=== PATIENT | female | born 1955 | race African-American/Black ===

== ENCOUNTER 2017-03-08 16:35 | Inpatient (IN) | payer OTHER ==
--- NOTE | 2017-03-08 16:55 | PDOC ---
History of Present Illness - General Chief Complaint: Injury Stated Complaint: FALL Time Seen by Provider: 03/08/17 16:55 History Source: Patient Exam Limitations: Other (Patient is on-verbal) - History of Present Illness Initial Comments: 61 year old female with HIV (immunocompromised, Recent CD4 420 with VL <20), HTN, CVA (remote, on ASA), Hep C (s/p Harvoni), asthma/COPD (no history of intubations), and active cigarette smoking presenting after being found down by her cousin. She was on the floor for approximately two days without known inciting event. She states that she was walking out of the bathroom and simply fell but unsure if she tripped. She did not hit her head or lose consciousness. She doesn't have history of falls. Family was not at bedside to corroborate her story. She takes all of her medications as prescribed. Denies fevers, chills, nausea, vomiting, diarrhea, constipation, chest pain, or other symptoms. 03/08/17 19:31 Past History - Past Medical History Allergies/Adverse Reactions: Allergies Allergy/AdvReac Type Severity Reaction Status Date / Time Penicillins AdvReac Severe Verified 10/11/15 10:19 Home Medications: Ambulatory Orders Abacavir Sulfate [Abacavir] 300 mg PO BID #60 tablet 12/23/16 Aspirin [Ecotrin] 81 mg PO DAILY #30 tablet. 12/23/16 Darunavir/Cobicistat [Prezcobix 800 mg-150 mg Tablet] 1 each PO DAILY #30 tablet 12/23/16 Gabapentin 400 mg PO DAILY #30 capsule 12/23/16 Lamivudine 300 mg PO DAILY #30 tablet 12/23/16 Metoprolol Tartrate [Lopressor] 25 mg PO DAILY #30 tablet 12/23/16 Multivitamin [Poly-Vitamin] 1 each PO DAILY #30 tab.chew 12/23/16 Amlodipine Besylate 10 mg PO DAILY #30 tablet 01/06/17 Lactose-Reduced Food [Ensure Original] 237 ml PO TID #90 liquid 02/12/17 Anemia: Yes Asthma: Yes Cancer: No Cardiac Disorders: No CVA: No COPD: No CHF: No Dementia: No Diabetes: No GI Disorders: No Disorders: No HTN: Yes Hypercholesterolemia: Yes HIV: Yes Liver Disease: No Seizures: No Thyroid Disease: No - Surgical History Abdominal Surgery: No Appendectomy: No Cardiac Surgery: No Cholecystectomy: No Lung Surgery: No Neurologic Surgery: No Orthopedic Surgery: No - Immunization History Td Vaccination: Yes Immunization Up to Date: Yes - Psycho/Social/Smoking Cessation Hx Anxiety: No Suicidal Ideation: No Smoking History: Former smoker Have you smoked in the past 12 months: No Number of Cigarettes Smoked Daily: 5 If you are a former smoker, when did you quit?: Several months ago. Cigars Per Day: 0 Information on smoking cessation initiated: No 'Breaking Loose' booklet given: 09/07/14 Hx Alcohol Use: Yes Drug/Substance Use Hx: Yes Substance Use Type: Heroin Hx Substance Use Treatment: Yes Review of Systems - Review of Systems Constitutional: No: Chills, Diaphoresis, Fever HEENTM: No: Blurred Vision, Recent change in vision Respiratory: No: Cough, Shortness of Breath Cardiac (ROS): No: Chest Pain ABD/GI: No: Constipated, Diarrhea, Nausea : No: Dysuria, Frequency, Hematuria Musculoskeletal: Yes: Joint Pain Integumentary: No: Change in Color, Lesions Neurological: No: Headache, Numbness *Physical Exam - Vital Signs Last Vital Signs Temp Pulse Resp BP Pulse Ox 97.6 F 92 H 18 142/114 97 03/08/17 16:51 03/08/17 16:51 03/08/17 16:51 03/08/17 16:51 03/08/17 16:51 - Physical Exam General Appearance: Yes: Appropriately Dressed, Thin. No: Apparent Distress HEENT: positive: EOMI, LINDA, Thrush, Other (Mucous membranes dry with thrush on tongue.). negative: Normal Voice (Had difficulty understanding the patient becuasse she was missing her top dentures. ), Photophobia Neck: positive: Trachea midline, Normal Thyroid, Supple. negative: Tender, Rigid Respiratory/Chest: positive: Lungs Clear, Normal Breath Sounds. negative: Chest Tender, Respiratory Distress, Accessory Muscle Use Cardiovascular: positive: Regular Rhythm, Regular Rate, S1, S2. negative: Murmur Gastrointestinal/Abdominal: positive: Normal Bowel Sounds, Flat, Soft. negative : Tender Musculoskeletal: negative: Normal Inspection (Externally rotated and shortened right hip that is painful to palpation over the greater trochanter and is non- mobile secondaryt to pain. Neurvascularly intact distal to the site. No swelling , erythema, or bruising. Upper extremeities have slightly decreased ROM but symmetric. ) Extremity: positive: Tender. negative: Normal Inspection, Normal Range of Motion Integumentary: positive: Normal Color, Dry, Warm Neurologic: positive: Fully Oriented (Originally had questionable orientation but imrpoved after fluids and placing her teeth inher mouth.), Alert ED Treatment Course - LABORATORY CBC & Chemistry Diagram: 03/08/17 18:45 03/08/17 20:04 Medical Decision Making - Medical Decision Making 61 year immuno-compromised female on HAART therapy presenting with left hip pain after being found down for two days. Hip film positive for fracture ( transcervical, shortened, Grade 4 garden fracture, possible fracture of greater trochanter as well). Trop negative, elevated BUN, CR, and CK (1800). 03/08/17 20:51 03/08/17 21:[address] Chou's service for hip fracture repair and IV hydration/ CK trending. Dr. Bowman was consulted on the case at 21:10 PM and agreed to operate on the patient within a day or two. *DC/Admit/Observation/Transfer Diagnosis at time of Disposition: Closed left hip fracture, Rhabdomyolysis - Discharge Dispostion Condition at time of disposition: Improved Admit: Yes - Attestations Physician Attestion: Attested by Dr. Quan. 03/08/17 21:35 03/08/17 22:18
[2017-03-08] MEDS ORDERED: SODIUM CHLORIDE 1,000 ML IV STA (17:36)
[2017-03-08 18:50] LABS: BASOPHIL 0.6 % (0-2.0); EOSINOPHIL 1.2 % (0-4.5); MCHC 34.3 g/dl (32.0-36.0); MEAN CELL VOLUME 99.1 fl (80-96); MEAN PLT VOLUME 9.7 fl (7.5-11.1); NEUTROPHILS 68.1 % (42.8-82.8); PLATELET COUNT 170 K/MM3 (134-434)
[2017-03-08 19:07] LABS: INR 1.06 (0.82-1.09); PROTHROMBIN TIME (PATIENT) 11.7 SEC (9.98-11.88)
[2017-03-08 20:41] LABS: ALBUMIN 3.5 g/dl (3.4-5.0); ANION GAP 9 (8-16); BILIRUBIN,TOTAL 0.4 mg/dL (0.2-1.0); CALCIUM 8.7 mg/dL (8.5-10.1); CO2 27 mmol/L (21-32); CREATININE 1.4 mg/dL (0.55-1.02); GLUCOSE,RANDOM 81 mg/dL (74-106); SGOT/AST 50 U/L (15-37); SGPT/ALT 31 U/L (12-78); TOT PROT 7.7 g/dl (6.4-8.2)
[2017-03-08 20:42] LABS: ALK PHOS 76 U/L (45-117)
[2017-03-08 20:54] LABS: TROPONIN I < 0.02 ng/ml (0.00-0.05)
[2017-03-08 20:55] LABS: CPK 1884 IU/L (26-192)
--- NOTE | 2017-03-08 20:58 | PDOC ---
Attending Attestation - Resident Resident Name: KadeemJimrubaaly - ED Attending Attestation I have performed the following: I have examined & evaluated the patient, The case was reviewed & discussed with the resident, I agree w/resident's findings & plan, Exceptions are as noted - HPI HPI: 03/08/17 20:50 61 yo female JENA from home after a cousin found her on the floor. She states she fell 2 days ago.When questioned she doedsnot know why she fell.The family member didn't accompany this pt to the ER. -she has c/o left hip pain ,her left leg is fore shortened and externally rotated -in reviewing the old charts her PMH is significant foir HTN,HIV, hep c, anemia, asthma -she is followed at the [facility] 03/08/17 20:58 - Physicial Exam PE: 03/08/17 20:59 thin, 61 03/08/17 21:33 61-year-old female looking much older than stated age. Presents with dry mucous membranes Head- no evidence of scalp laceration or hematoma Eyes -pupils equal, reactive to light and accommodation Neck -there is no cervical vertebral tenderness Clear to auscultation bilaterally cvs [id number] -Soft, nontender Extremities tenderness in the area of the left femur and hip, left leg is externally rotated and foreshortened Neuro-upon initial presentation, it was felt the patient couldn't speak. However, when she got her dentures and she definitely can participate in her exam - Medical Decision Making 03/09/17 01:21 61 yo female s/p fall who had a left intertrochanteric hip fracture,admitted med /surg
[2017-03-08] MEDS ORDERED: morphine CARPU-JECT 2 MG/1 ML DISP.SYRIN IVPUSH PRN (23:29)
[2017-03-08 23:40] VITALS: BMI 16.2
[2017-03-08] MEDS ORDERED: SODIUM CHLORIDE 0.45% 1,000 ML IV SCH (23:45)
[2017-03-09] MEDS: HEPARIN NA (PORCINE) 5,000 UNITS/ML 1ML VIAL SQ SCH ×4 (00:11→21:34)
--- NOTE | 2017-03-09 00:13 | HP ---
CHIEF COMPLAINT: fall, hip pain PCP: [facility] HISTORY OF PRESENT ILLNESS: 61yo F with PMH of HIV, Hep C, HTN presents s/p fall and Left hip pain. Pt reports she was walking out of the bathroom and fell 2 days ago, does not recall tripping or slipping. Pt reports she just stayed on the floor for 2 days until found by her cousin. Denies LOC, dizziness, change in vision, chest pain, palpitations, SOB, neck/back pain. Pt reports she did not hit her head. Pt does c/o Left hip pain, with onset after the fall. Denies a hx of falls. ER course was notable for: (1) Creatine kinase 1870 (2) NS 1 L bolus (3) CXR, hip/pelvis XRay, Head CT without contrast all pending PAST MEDICAL HISTORY: HIV Hep C asthma anemia HTN hypercholesterolemia PAST SURGICAL HISTORY: none Social History: Smoking: current, 5 cigarettes/day x 45 yrs Alcohol: none currently, hx of etoh use Drugs: none currently, hx of heroin Allergies Penicillins Adverse Reaction (Severe, Verified 10/11/15 10:19) "the skakes" HOME MEDICATIONS: Home Medications Medication Instructions Recorded Abacavir Sulfate [Abacavir] 300 mg PO BID #60 tablet 12/23/16 Aspirin [Ecotrin] 81 mg PO DAILY #30 tablet. 12/23/16 Darunavir/Cobicistat [Prezcobix 1 each PO DAILY #30 tablet 12/23/16 800 mg-150 mg Tablet] Gabapentin 400 mg PO DAILY #30 capsule 12/23/16 Lamivudine 300 mg PO DAILY #30 tablet 12/23/16 Metoprolol Tartrate [Lopressor] 25 mg PO DAILY #30 tablet 12/23/16 Multivitamin [Poly-Vitamin] 1 each PO DAILY #30 tab.chew 12/23/16 Amlodipine Besylate 10 mg PO DAILY #30 tablet 01/06/17 Lactose-Reduced Food [Ensure 237 ml PO TID #90 liquid 02/12/17 Original] REVIEW OF SYSTEMS CONSTITUTIONAL: Absent: fever, chills, diaphoresis, loss of appetite HEENT: Absent: throat pain, ear pain, eye pain, visual changes CARDIOVASCULAR: Absent: chest pain, syncope, palpitations, irregular heart rate RESPIRATORY: Absent: cough, shortness of breath, orthopnea, wheezing, stridor GASTROINTESTINAL: Absent: abdominal pain, abdominal distension, nausea, vomiting, diarrhea, constipation GENITOURINARY: Absent: dysuria, frequency, hesitancy MUSCULOSKELETAL: Present: Left hip pain Absent: myalgia, joint swelling, back pain, neck pain SKIN: Absent: rash, itching, pallor NEUROLOGIC: Absent: headache, focal weakness or paresthesias, dizziness PHYSICAL EXAMINATION Last Vital Signs Temp Pulse Resp BP Pulse Ox 97.9 F 92 H 20 128/65 95 03/08/17 23:34 03/08/17 23:34 03/08/17 23:47 03/08/17 23:34 03/08/17 23:47 GENERAL: Awake, alert, and fully oriented, cachectic woman in no acute distress. HEAD: Normal with no signs of trauma. EYES: Pupils equal, round and reactive to light, extraocular movements intact, sclera anicteric, conjunctiva clear. No lid lag. EARS, NOSE, THROAT: Thrush on tongue. Dry mucous membranes. NECK: Supple, trachea midline. No JVD, or masses. LUNGS: Breath sounds equal, clear to auscultation bilaterally. No wheezes, and no crackles. No accessory muscle use. HEART: Regular rate and rhythm, normal S1 and S2 without murmur, rub or gallop. ABDOMEN: Soft, nontender, not distended, normoactive bowel sounds, no guarding, no rebound, no masses. MUSCULOSKELETAL: Left LE externally rotated and shortened length, tender to palpation. LOWER EXTREMITIES: Both LE warm, well-perfused. No calf tenderness. No peripheral edema. NEUROLOGICAL: Fully oriented. Sensation intact to charlie LE. PSYCHIATRIC: Cooperative. Good eye contact. Appropriate mood and affect. SKIN: Warm, dry, normal turgor, no rashes or lesions noted. Laboratory Last Values WBC 5.0 K/mm3 (4.0-10.0) 03/08/17 18:45 RBC 4.99 M/mm3 (3.60-5.2) 03/08/17 18:45 Hgb 17.0 GM/dL (10.7-15.3) H D 03/08/17 18:45 Hct 49.5 % (32.4-45.2) H D 03/08/17 18:45 MCV 99.1 fl (80-96) H 03/08/17 18:45 MCH 34.0 pg (25.7-33.7) H 03/08/17 18:45 MCHC 34.3 g/dl (32.0-36.0) 03/08/17 18:45 RDW 15.0 % (11.6-15.6) 03/08/17 18:45 Plt Count 170 K/MM3 (134-434) D 03/08/17 18:45 MPV 9.7 fl (7.5-11.1) 03/08/17 18:45 Neutrophils % 68.1 % (42.8-82.8) D 03/08/17 18:45 Lymphocytes % 20.9 % (8-40) D 03/08/17 18:45 Monocytes % 9.2 % (3.8-10.2) 03/08/17 18:45 Eosinophils % 1.2 % (0-4.5) 03/08/17 18:45 Basophils % 0.6 % (0-2.0) 03/08/17 18:45 INR 1.06 (0.82-1.09) 03/08/17 18:45 Sodium 139 mmol/L (136-145) 03/08/17 20:04 Potassium 3.9 mmol/L (3.5-5.1) 03/08/17 20:04 Chloride 103 mmol/L (98-107) 03/08/17 20:04 Carbon Dioxide 27 mmol/L (21-32) 03/08/17 20:04 Anion Gap 9 (8-16) 03/08/17 20:04 BUN 53 mg/dL (7-18) H D 03/08/17 20:04 Creatinine 1.4 mg/dL (0.55-1.02) H 03/08/17 20:04 Creat Clearance w eGFR 38.10 (>60) 03/08/17 20:04 Random Glucose 81 mg/dL (74-106) 03/08/17 20:04 Calcium 8.7 mg/dL (8.5-10.1) 03/08/17 20:04 Total Bilirubin 0.4 mg/dL (0.2-1.0) D 03/08/17 20:04 AST 50 U/L (15-37) H D 03/08/17 20:04 ALT 31 U/L (12-78) D 03/08/17 20:04 Alkaline Phosphatase 76 U/L (45-117) D 03/08/17 20:04 Creatine Kinase 1870 IU/L (26-192) H 03/08/17 20:06 Creatine Kinase Index 0.8 % (0.0-5.0) 03/08/17 20:06 CK-MB (CK-2) 16.477 ng/mL (0.5-3.6) H 03/08/17 20:06 Troponin I < 0.02 ng/ml (0.00-0.05) 03/08/17 20:06 Total Protein 7.7 g/dl (6.4-8.2) 03/08/17 20:04 Albumin 3.5 g/dl (3.4-5.0) 03/08/17 20:04 Blood Type O POSITIVE 03/08/17 18:45 Antibody Screen Negative 03/08/17 18:45 IMAGIN03/08/17 CXR pending, appears negative normal 03/08/17 Hip/Pelvis XRay pending, fx of Left femur evident 03/08/[address] without contrast - no acute findings. ASSESSMENT/PLAN: 61yo F with PMH of HIV, Hep C, HTN presents s/p fall and Left hip pain admitted to Med-Surg for Left hip fx. 1) Left hip fx - Ortho Consult - pain control with morphine 4mg q4hr prn 2) rhabdomyolysis - 1/2 NS @ 125 ml/hr for hydration - f/u Creatine kinase 3) HIV - cont. home HAART meds of Abacavir 300mg PO BID and Prezcobix 800mg/150mg PO daily - hold Lamivudin 2/2 nephrotoxicity especially in acute setting of rhabdomyolysis 4) HTN - pain management - cont. home meds of Lopressor 25mg PO daily and Amlodipine 10mg PO daily 5) FEN - Fluids: 1/2 NS @ 125 ml/hr - Electrolytes: wnl, cont. to monitor - Nutrition: npo after midnight, will hopefully be scheduled for surgery tomorrow 6) Prophylaxis - Heparin 5000U q8hr for DVT prophylaxis Visit type - Emergency Visit Emergency Visit: Yes ED Registration Date: 03/08/17 Care time: The patient presented to the Emergency Department on the above date and was hospitalized for further evaluation of their emergent condition. - New Patient This patient is new to me today: Yes Date on this admission: 03/09/17 - Critical Care Critical Care patient: No
--- NOTE | 2017-03-09 00:58 | PN ---
Teaching Attending Note Name of Resident: Cheryl Deluna ATTENDING PHYSICIAN STATEMENT I saw and evaluated the patient. I reviewed the resident's note and discussed the case with the resident. I agree with the resident's findings and plan as documented. SUBJECTIVE: 61 year old female that presents s/p fall at home. Was unable to get up and call help for two days , was found on the floor by her cousin. Has poor recollection of events . C/o left hip pain 10/10 , constant. PAST MEDICAL HISTORY: HIV Hep C asthma anemia HTN hypercholesterolemia PAST SURGICAL HISTORY: none Social History: Smoking: current, 5 cigarettes/day x 45 yrs Alcohol: none currently, hx of etoh use Drugs: none currently, hx of heroin OBJECTIVE: Vital Signs Temperature 97.9 F 03/08/17 23:34 Pulse Rate 92 H 03/08/17 23:34 Respiratory Rate 20 03/08/17 23:47 Blood Pressure 128/65 03/08/17 23:34 O2 Sat by Pulse Oximetry (%) 95 03/08/17 23:47 GENERAL: Awake, alert, and fully oriented, cachectic woman in no acute distress. HEAD: Normal with no signs of trauma.Temporal wasting EARS, NOSE, THROAT: Oral thrush. Dry mucous membranes. NECK: Supple, trachea midline. No JVD, or masses. LUNGS: Breath sounds equal, clear to auscultation bilaterally. No wheezes, and no crackles. No accessory muscle use. HEART: Regular rate and rhythm, normal S1 and S2 without murmur, rub or gallop. ABDOMEN: Soft, nontender, not distended, normoactive bowel sounds, no guarding, no rebound, no masses. MUSCULOSKELETAL: Left LE externally rotated and shortened length, tender to palpation. LOWER EXTREMITIES: Both LE warm, well-perfused. No calf tenderness. No peripheral edema. CBC, BMP 03/08/17 18:45 03/08/17 20:04 ASSESSMENT AND PLAN: 1. Left Hip Fracture - post traumatic -ortho evaluation for possible ORIF -pain control 2. Rhabdomyolisis- post traumatic - ivf @ 125/hr - follow cpk and renal function 3. HIV - reports that last CD4 is above 400 and VL was undetectable. Compliant with meds - get records - c/w HAART - CD4 count 4. ARF - pre renallikely - IVF 5. Oral thrush - nystatin S&S 6. FEN nutrition consult
[2017-03-09] MEDS ORDERED: morphine CARPU-JECT 4 MG/1 ML DISP.SYRIN IVPUSH PRN (01:22)
[2017-03-09] MEDS: NYSTATIN 500,000 UNITS/5 ML SUSPENSION PO SCH ×3 (06:25→18:29)
[2017-03-09] MEDS: morphine CARPU-JECT 2 MG/1 ML DISP.SYRIN IVPUSH PRN ×3 (06:27→21:44)
[2017-03-09 08:12] LABS: MCH 33.6 pg (25.7-33.7); MCHC 33.5 g/dl (32.0-36.0); MEAN CELL VOLUME 100.2 fl (80-96); PLATELET COUNT 129 K/MM3 (134-434); RDW 14.9 % (11.6-15.6); WHITE BLOOD COUNT 4.4 K/mm3 (4.0-10.0)
[2017-03-09 08:46] LABS: ALBUMIN 3.5 g/dl (3.4-5.0); ALK PHOS 77 U/L (45-117); ANION GAP 11 (8-16); BILIRUBIN,TOTAL 0.6 mg/dL (0.2-1.0); CALCIUM 8.9 mg/dL (8.5-10.1); CO2 25 mmol/L (21-32); CREATININE 0.9 mg/dL (0.55-1.02); GLUCOSE,RANDOM 89 mg/dL (74-106); SGOT/AST 50 U/L (15-37); SGPT/ALT 31 U/L (12-78); TOT PROT 7.8 g/dl (6.4-8.2)
[2017-03-09 08:58] LABS: CPK 2184 IU/L (26-192); TROPONIN I < 0.02 ng/ml (0.00-0.05)
[2017-03-09] MEDS: METOPROLOL TARTRATE 25 MG TABLET (FP) PO SCH (09:05)
[2017-03-09] MEDS: amLODIPine BESYLATE 10 MG TABLET (FP) PO SCH (09:05)
--- NOTE | 2017-03-09 09:08 | CON.ORTH ---
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 Home Medications - Allergies Allergies/Adverse Reactions: Allergies Allergy/AdvReac Type Severity Reaction Status Date / Time Penicillins AdvReac Severe Verified 10/11/15 10:19 - Home Medications Home Medications: Ambulatory Orders Abacavir Sulfate [Abacavir] 300 mg PO BID #60 tablet 12/23/16 Aspirin [Ecotrin] 81 mg PO DAILY #30 tablet. 12/23/16 Darunavir/Cobicistat [Prezcobix 800 mg-150 mg Tablet] 1 each PO DAILY #30 tablet 12/23/16 Gabapentin 400 mg PO DAILY #30 capsule 12/23/16 Lamivudine 300 mg PO DAILY #30 tablet 12/23/16 Metoprolol Tartrate [Lopressor] 25 mg PO DAILY #30 tablet 12/23/16 Multivitamin [Poly-Vitamin] 1 each PO DAILY #30 tab.chew 12/23/16 Amlodipine Besylate 10 mg PO DAILY #30 tablet 01/06/17 Lactose-Reduced Food [Ensure Original] 237 ml PO TID #90 liquid 02/12/17 Family Disease History - Family Disease History Family Disease History: Heart Disease: Mother (CVA), CA: Brother (throat cancer) , Sister Physical Exam for Ortho Vital Signs: Vital Signs Temperature 98.0 F 03/09/17 08:58 Pulse Rate 79 03/09/17 08:58 Respiratory Rate 20 03/09/17 08:58 Blood Pressure 151/108 03/09/17 08:58 O2 Sat by Pulse Oximetry (%) 95 03/08/17 23:47 Labs: CBC, BMP 03/09/17 07:00 03/09/17 07:00 INR, PTT INR 1.06 (0.82-1.09) 03/08/17 18:45 - Lower Extremity Hip: Yes: Left, Decreased ROM, Leg Externally Rotated, Leg Shortened, Pain, Swelling, Other (nvi) Imaging - Results X-ray: Report Reviewed, Image Reviewed Assessment/Plan 61yo F with PMH of HIV, Hep C, HTN presents s/p fall and Left hip pain. Pt reports she was walking out of the bathroom and fell 2 days ago, does not recall tripping or slipping. Pt reports she just stayed on the floor for 2 days until found by her cousin. Denies LOC, dizziness, change in vision, chest pain, palpitations, SOB, neck/back pain. Pt reports she did not hit her head. Pt does c/o Left hip pain, with onset after the fall. Denies a hx of falls. a/p left displaced femoral neck fx Risks and benefits were d/w patient in detail Needs left hip hemiarthroplasty OR tentatively for Thursday pending clearance Surgical clearance NPO after midnight on Thursday pain control d/w Dr. Bowman
[2017-03-09] MEDS ORDERED: PATIENT'S OWN MEDICATION (NON-FORMULARY) (Darunavir/Cobicistat [Prezcobix 800 Mg-150 Mg Ta PO SCH (10:00)
[2017-03-09] MEDS ORDERED: PT OWN MED DRAWER 7, Y5N ONE (10:29)
[2017-03-09] MEDS: GABAPENTIN 400 MG CAPSULE (FP) PO SCH (10:34)
[2017-03-09] MEDS: ABACAVIR SULFATE 300 MG TABLET PO SCH ×2 (10:34→21:34)
--- NOTE | 2017-03-09 10:56 | PN ---
Progress Note (short form) - Note Progress Note: ID Consult dictated S/P L femoral neck fracture Possible rhabdo Dehydration AIDS Oral candidiasis PCN allergy Continue ART Nystatin swish and swallow Fluconazole po IVF hydration
--- NOTE | 2017-03-09 11:28 | CONS ---
DATE OF CONSULTATION: HISTORY: The patient is a 61-year-old female with a history of Acquired immunodeficiency syndrome evaluated for HIV management. She was admitted to the hospital on March 08, 2017 after being found on the floor by a family member. She was unable to give a reliable history. She apparently had been on the floor for some period of time. Upon evaluation, she was found to have a left femoral neck fracture. Her course was complicated by dehydration and possible rhabdomyolysis. At the present time, she is awake and alert. She complains of left lower extremity pain. She denies any head trauma or loss of consciousness. The patient has a long history of HIV infection. Has had a history of poor adherence in the past, however, most recent viral markers show an undetectable viral load and a T cell count of 47. She does have a AIDS diagnosis by virtue of a T cell count less than 200. PAST MEDICAL HISTORY: Positive for Acquired immunodeficiency syndrome, history of hypertension, CVA, hepatitis C, previously treated COPD, asthma. ALLERGIES: PENICILLIN. Nature of the allergy not known. SOCIAL HISTORY: Positive for tobacco use and history of IV heroin use. LABORATORY DATA: White count 4.4, hematocrit 44.5, platelet count 129, BUN 32, creatinine 0.9, total bilirubin 0.6, alkaline phosphatase 77, AST 50, CPK 2184. Chest x-ray: No acute infiltrate. X-ray of the left hip shows a left femoral neck fracture. PHYSICAL EXAMINATION: GENERAL: On exam, she is awake and alert. She is chronically ill-appearing, cachectic. VITAL SIGNS: Temperature 98, blood pressure 151/108, pulse 79 and regular, respirations 20 per minute. HEENT: Sclerae anicteric. Positive oral candidiasis. NECK: Supple. HEART: Sounds S1, S2. LUNGS: Crepitations bases left greater than right. ABDOMEN: Soft. No tenderness elicited. No mass, rebound, or rigidity. EXTREMITIES: Negative for edema. Left lower extremity is shortened. IMPRESSION: 1. Status post left femoral neck fracture. 2. Dehydration. 3. Possible rhabdomyolysis. 4. Acquired immunodeficiency syndrome. 5. Oral candidiasis. 6. PENICILLIN allergy. PLAN: Continue IV fluid hydration, nystatin swish and swallow, and p.o. fluconazole for thrush. Continue antiviral therapy. Thank you for the kind referral. KOFI GONZALEZ M.D. [id number]
[2017-03-09] MEDS: FLUCONAZOLE 100 MG TABLET (UD) PO SCH (11:42)
--- NOTE | 2017-03-09 12:58 | PN ---
Teaching Attending Note Name of Resident: Wei Galicia ATTENDING PHYSICIAN STATEMENT I saw and evaluated the patient. I reviewed the resident's note and discussed the case with the resident. I agree with the resident's findings and plan as documented. SUBJECTIVE:c/o pain in the L hip with only some relief with pain medication. states pain comes back too quickly. c/o dysphagia and loss of weight due to inability to swallow. claims medication compliance. states her VL was undetectable 3 months ago. no recent changes to her medications. states she did not have any symptoms before or after her fall and that she just lost her footing. denies CP, SOB, fever, chills, N/V/C/D OBJECTIVE: Last Vital Signs Temp Pulse Resp BP Pulse Ox 98.0 F 68 18 125/89 95 03/09/17 08:58 03/09/17 11:39 03/09/17 11:39 03/09/17 11:39 03/09/17 09:00 General NAD, cachectic HEENT +white oral plaques CV S1 S2 RRR no murmur/rub/gallop Lungs CTA B/L no wheezing/rales/rhonchi Extremities pulses intact. Pain on L hip ASSESSMENT AND PLAN: 61yo F wtih PMH HIV, HCV and HTN presented to the ER after mechanical fall and found to have L hip fracture 1. 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 Ortho eval and plan for ORIF. will need to medical optimize at this time. increase pain medication frequency to Q3H. bedrest. will need VINITA post surgery. 2. Rhabdo- due to immobility x2 days. CK trending up. can also be due to HARRT therapy. currently on hold. cont aggressive IVF. trend CK 3. TERESA- due to dehydration and TERESA. improved. cont IVF. avoid nephrtotoxic agents 4. Polycythemia-likely dehydration. improved 5. Oral candidasis- nystatin swish and swallow, fluconazole po 6. Dysphagia- likley due to oral candidasis. concern for weight loss. speech and swallow eval. nuclear physicist eval 7. HIV on HARRT- currently on hold due to rhabdo and TERESA. ID consult for evaluation. will need to see what recent labs were and if pt has been compliant 8. HTN- controlled. cont metoprolol 9. HCV-unknown if previsously treated 10. DVT ppx- hep sq
--- NOTE | 2017-03-09 14:47 | CONSULT ---
Admitting History and Physical - Primary Care Physician PCP: Charlene Cook - Admission History of Present Illness: 61yo F wtih PMH HIV, HCV and HTN presented to the ER after mechanical fall and found to have L hip fracture c/o dysphagia and loss of weight due to inability to swallow.Oral candidasis- nystatin swish and swallow, fluconazole po ordered. History Source: Medical Record Limitations to Obtaining History: Clinical Condition - Past Medical History Cardiovascular: Yes: HTN, Hyperlipdemia Hepatobiliary: Yes: Hepatitis B Infectious Disease: Yes: HIV - Smoking History Smoking history: Current every day smoker Have you smoked in the past 12 months: Yes Aproximately how many cigarettes per day: 5 If you are a former smoker, when did you quit?: Several months ago. - Alcohol/Substance Use Hx Alcohol Use: Yes History - Admission Reason For Visit: RHABDOMYOLYSIS - Diagnostics X-ray: Report Reviewed Modified Barium Swallow: Report Reviewed (02/2015 Limited mastication. (-) aspiration.) - General Mental Status: Flat Affect, Lethargic Attention: Distractible - Hearing Hearing: Normal Hearing Aide: No With Patient: No Speech Evaluation - Communication Primary Language: MALIAN Communication: Yes: Simple Responses (limited verbalizations) - Speech Characteristics Voice Loudness: Mildly Soft/Quiet Voice Phonatory-based Quality: Yes: Dysphonia Articulation: Yes: Imprecise - Swallow Evaluation/Bedside Assessment Current Nutritional Intake: Regular, Thin Liquids Oral Secretions: Yes: WFL Dentition: Yes: Edentulous Facial Symmetry at Rest: Symmetrical Lingual Movement: Symmetric, Reduced Protrusion Laryngeal Movement: Labored,delay initiation, Reduced Velocity Rate of Intake: Slow/Holding Oral Prep Time: Increased A-P Transit: Impaired Timing of Swallow: Delayed Coughing/Throat Clear: No Change in Voice: No Recommendations - Speech Evaluation, Impression/Plan Impression: Limited cooperation, rare verbalizations, accepted small amounts of puree from tip of spoon and small sips of ensure.Unable to masticate at this time. Delayed swallow, labored, generated 2-3 times per bolus. White patches in oral cavity. - Dysphagia Impressions/Plan Swallowing Skills: Impaired *Silent aspiration: cannot be R/O at bedside Dysphagia Treatment Plan: Chin Tuck/Down, Safe Rate, 1/2 tsp. at a time, Elevate HOB during feed, Other (give time to swallow 2-3 times to clear pharynx. ) Recommendations: Modified Barium Swallow (if cough, congestion, fever.), Other ( continue medical mgmt for thrush. May benefit from TF, once thrush clears, if poor PO intake continues.) - Recommendations Diet Consistency: Dysphagia Pureed Medication Administration: Crushed with applesauce Liquids: Thin Liquids Supplement: Ensure
--- NOTE | 2017-03-09 15:03 | PN ---
Physical Exam: SUBJECTIVE: Patient seen and examined at bed side. Patient complaine of pain in te left hip with very little relief with pain medicine. she c/o dysphasia and loss of weight due to inability to swallow. she denies any CP , SOB, D/C/N/V fever or chills.. OBJECTIVE: Vital Signs Period Temp Pulse Resp BP Sys/Johnson Pulse Ox Last 24 Hr 97.9 F-98.4 F 68-92 18-20 109-151/65-108 92-98 GENERAL: The patient is awake, alert, and fully oriented,.cachectic HEAD: Normal with no signs of trauma. EYES: PERRL, sclera anicteric, conjunctiva clear. No ptosis. ENT: , moist mucous membranes. NECK: Trachea midline, full range of motion, supple. LUNGS: Breath sounds equal, clear to auscultation bilaterally, no wheezes, no crackles, no accessory muscle use. HEART: Regular rate and rhythm, S1, S2 without murmur, rub or gallop. ABDOMEN: Soft, nontender, nondistended, normoactive bowel sounds, no guarding, no rebound, no hepatosplenomegaly, no masses. EXTREMITIES: 2+ pulses, warm, well-perfused, no edema. unable to move due to left hip pain. NEUROLOGICAL: . Normal speech, gait not observed. PSYCH: Normal mood, normal affect. SKIN: Warm, dry, normal turgor, no rashes or lesions noted Laboratory Results - last 24 hr 03/09/17 03/09/17 03/09/17 07:00 07:00 07:00 WBC 4.4 RBC 4.44 Hgb 14.9 D Hct 44.5 MCV 100.2 H MCH 33.6 MCHC 33.5 RDW 14.9 Plt Count 129 L D MPV 10.0 Sodium 137 Potassium 3.5 Chloride 101 Carbon Dioxide 25 Anion Gap 11 BUN 32 H D Creatinine 0.9 D Creat Clearance w eGFR > 60 Random Glucose 89 Calcium 8.9 Total Bilirubin 0.6 D AST 50 H ALT 31 Alkaline Phosphatase 77 Creatine Kinase 2184 H Creatine Kinase Index 0.6 CK-MB (CK-2) 14.135 H Troponin I < 0.02 Total Protein 7.8 Albumin 3.5 Active Medications Generic Name Dose Route Start Last Admin Trade Name Freq PRN Reason Stop Dose Admin Abacavir Sulfate 300 mg 03/09/17 10:00 03/09/17 10:34 Ziagen - PO 300 mg BID ELLIE Administration Amlodipine Besylate 10 mg 03/09/17 10:00 03/09/17 09:05 Norvasc - PO 10 mg DAILY ELLIE Administration Fluconazole 100 mg 03/09/17 11:00 03/09/17 11:42 Diflucan - PO 100 mg DAILY ELLIE Administration Gabapentin 400 mg 03/09/17 10:00 03/09/17 10:34 Neurontin - PO 400 mg DAILY ELLIE Administration Heparin Sodium (Porcine) 5,000 unit 03/08/17 23:45 03/09/17 06:25 Heparin - SQ 5,000 unit TID ELLIE Administration Sodium Chloride 1,000 mls @ 125 mls/hr 03/08/17 23:45 03/09/17 00:12 1/2 Normal Saline IV 125 mls/hr ASDIR ELLIE Administration Lamivudine 300 mg 03/09/17 11:00 Epivir - PO DAILY [facility] Metoprolol Tartrate 25 mg 03/09/17 10:00 03/09/17 09:05 Lopressor - PO 25 mg DAILY ELLIE Administration Morphine Sulfate 4 mg 03/09/17 06:12 03/09/17 11:41 Morphine Injection - IVPUSH 4 mg Q4H PRN Administration PAIN Nystatin 500,000 units 03/09/17 06:00 03/09/17 11:44 Nystatin Oral Suspension - PO 500,000 units Q6HPO ELLIE Administration CBC, BMP 03/09/17 07:00 03/09/17 07:00 Abnormal Lab Results 03/09/17 03/09/17 03/09/17 07:00 07:00 07:00 MCV 100.2 H Plt Count 129 L D BUN 32 H D AST 50 H Creatine Kinase 2184 H CK-MB (CK-2) 14.135 H 03/08/17 CXR , appears negative normal 03/08/17 Hip/Pelvis XRay , fx of Left femur evident 03/08/[address] without contrast - no acute findings. ASSESSMENT/PLAN: 61yo F with PMH of HIV, Hep C, HTN presents s/p fall and Left hip pain was admitted to Med-Surg for Left hip fx. # Left hip fx S/p mechanical fall - Ortho Consulted , will operate on her Wednesday - pain control with morphine 4mg q4hr prn - Percocet TID -Bed rest -Will benift from [facility] Post op # rhabdomyolysis -due to immobility x2 days vs HAAART therapy - NS @ 125 ml/hr for hydration -CK 2184 - f/u Creatine kinase - ID recommend conitinue HAART therapy # Dysphagia due to Oral candidasis - nystatin swish and swallow, -fluconazole po ordered - Speach and swallow eval: Limited cooperation, rare verbalizations, accepted small amounts of puree from tip of spoon and small sips of ensure.Unable to masticate at this [place] Delayed swallow, labored, generated 2-3 times per bolus. White patches in oral cavity. - Merchandising Representative consult #TERESA- due to dehydration and TERESA. improved -cont IVF. -avoid nephrtotoxic agents - BUN/Cr 32/0.9 # HIV - cont. home HAART meds of Abacavir 300mg PO BID and Prezcobix 800mg/150mg PO daily (per ID) - ID continue her home meds for #HTN - pain management - cont. home meds of Lopressor 25mg PO daily and Amlodipine 10mg PO daily # HEPC Unknown if previously treated # FEN - Fluids: NS @ 125 ml/hr - Electrolytes: wnl, cont. to monitor - Nutrition: -npo after midnight (Thursday) Suspected Surgery on Thursday # Prophylaxis - Heparin 5000U q8hr for DVT prophylaxis Visit type - Emergency Visit Emergency Visit: Yes ED Registration Date: 03/08/17 Care time: The patient presented to the Emergency Department on the above date and was hospitalized for further evaluation of their emergent condition. - New Patient This patient is new to me today: Yes Date on this admission: 03/10/17 - Critical Care Critical Care patient: No
[2017-03-09] MEDS: SODIUM CHLORIDE 1,000 ML IV SCH (15:58)
--- NOTE | 2017-03-09 19:01 | EKG ---
Test Reason : Blood Pressure : / mmHG Vent. Rate : 088 BPM Atrial Rate : 088 BPM P-R Int : 150 ms QRS Dur : 078 ms QT Int : 394 ms P-R-T Axes : 055 020 050 degrees QTc Int : 476 ms NORMAL SINUS RHYTHM NORMAL ECG WHEN COMPARED WITH ECG OF 08-MAR-2017 18:20, NO SIGNIFICANT CHANGE WAS FOUND Confirmed by MARTITA KIM MD ([id number]) on 03/09/2017 7:01:34 PM Referred By: Confirmed By:MARTITA KIM MD
[2017-03-10] MEDS: NYSTATIN 500,000 UNITS/5 ML SUSPENSION PO SCH ×5 (00:13→23:21)
[2017-03-10] MEDS ORDERED: HYDROmorphone HCL CARPU-JECT 1 MG/1 ML DISP.SYRIN IVPB ONE ×2 (00:50→04:30)
[2017-03-10] MEDS: HEPARIN NA (PORCINE) 5,000 UNITS/ML 1ML VIAL SQ SCH ×3 (05:45→21:20)
[2017-03-10] MEDS: SODIUM CHLORIDE 1,000 ML IV SCH ×4 (05:46→20:23)
[2017-03-10] MEDS ORDERED: oxyCODONE HCL 5 MG TABLET PO ONE (06:31)
[2017-03-10] MEDS ORDERED: PT OWN MED DRAWER 7, Y5N ONE ×2 (09:09→20:56)
[2017-03-10] MEDS: GABAPENTIN 400 MG CAPSULE (FP) PO SCH (09:17)
[2017-03-10] MEDS: METOPROLOL TARTRATE 25 MG TABLET (FP) PO SCH (09:17)
[2017-03-10] MEDS: FLUCONAZOLE 100 MG TABLET (UD) PO SCH (09:17)
[2017-03-10] MEDS: amLODIPine BESYLATE 10 MG TABLET (FP) PO SCH (09:17)
[2017-03-10] MEDS: ABACAVIR SULFATE 300 MG TABLET PO SCH ×2 (09:18→21:20)
[2017-03-10 09:44] LABS: MEAN CELL VOLUME 100.1 fl (80-96); RDW 14.3 % (11.6-15.6); WHITE BLOOD COUNT 3.8 K/mm3 (4.0-10.0)
[2017-03-10 10:51] LABS: PLATELET COUNT 125 K/MM3 (134-434); PLATELET ESTIMATE ADEQUATE (NORMAL)
[2017-03-10 10:55] LABS: ANION GAP 7 (8-16); CALCIUM 9.4 mg/dL (8.5-10.1); CO2 30 mmol/L (21-32); CPK 889 IU/L (26-192); CREATININE 0.7 mg/dL (0.55-1.02); GLUCOSE,RANDOM 78 mg/dL (74-106)
[2017-03-10] MEDS: HYDROmorphone HCL CARPU-JECT 1 MG/1 ML DISP.SYRIN IM PRN ×2 (12:17→20:18)
--- NOTE | 2017-03-10 12:21 | PN ---
Progress Note, Physician History of Present Illness: More awake and alert No c/o hip pain Still with significant thrush. Tolerating pureed diet - Current Medication List Current Medications: Active Medications Abacavir Sulfate (Ziagen -) 300 mg PO BID [facility] Last Admin: 03/10/17 09:18 Dose: 300 mg Amlodipine Besylate (Norvasc -) 10 mg PO DAILY [facility] Last Admin: 03/10/17 09:17 Dose: 10 mg Fluconazole (Diflucan -) 100 mg PO DAILY [facility] Last Admin: 03/10/17 09:17 Dose: 100 mg Gabapentin (Neurontin -) 400 mg PO DAILY [facility] Last Admin: 03/10/17 09:17 Dose: 400 mg Heparin Sodium (Porcine) (Heparin -) 5,000 unit SQ TID [facility] Last Admin: 03/10/17 05:45 Dose: 5,000 unit Hydromorphone HCl (Dilaudid Injection -) 0.5 mg IM Q4H PRN PRN Reason: PAIN Sodium Chloride (Normal Saline -) 1,000 mls @ 125 mls/hr IV ASDIR [facility] Stop: 03/10/17 23:14 Last Admin: 03/10/17 06:51 Dose: 125 mls/hr Lamivudine (Epivir -) 300 mg PO DAILY [facility] Last Admin: 03/10/17 09:18 Dose: 300 mg Metoprolol Tartrate (Lopressor -) 25 mg PO DAILY [facility] Last Admin: 03/10/17 09:17 Dose: 25 mg Morphine Sulfate (Morphine Injection -) 4 mg IVPUSH Q4H PRN PRN Reason: PAIN Last Admin: 03/09/17 21:44 Dose: 4 mg Nystatin (Nystatin Oral Suspension -) 500,000 units PO Q6HPO [facility] Last Admin: 03/10/17 05:46 Dose: 500,000 units - Objective Vital Signs: Vital Signs Temperature 97.8 F 03/10/17 09:00 Pulse Rate 80 03/10/17 09:00 Respiratory Rate 20 03/10/17 10:00 Blood Pressure 110/81 03/10/17 09:00 O2 Sat by Pulse Oximetry (%) 100 03/10/17 10:00 Constitutional: Yes: No Distress Eyes: Yes: Conjunctiva Clear HENT: Yes: Other (+ oral ute) Cardiovascular: Yes: Regular Rate and Rhythm, S1, S2 Respiratory: Yes: Rhonchi Gastrointestinal: Yes: Normal Bowel Sounds, Soft. No: Tenderness Edema: No Labs: CBC, BMP 03/10/17 09:00 03/10/17 09:00 INR, PTT INR 1.06 (0.82-1.09) 03/08/17 18:45 Assessment/Plan S/P L femoral neck fracture AIDS Oral candidiasis Continue nystatin/ po fluconazole Continue ART May take own prezcobix (non-formulary) Please re-consult prn
[2017-03-10 12:46] LABS: URINE APPEARANCE CLEAR; URINE BILIRUBIN NEGATIVE (NEGATIVE); URINE BLOOD NEGATIVE (NEGATIVE); URINE COLOR LTYELLOW; URINE GLUCOSE (UA) 1+ (NEGATIVE); URINE KETONE TRACE (NEGATIVE); URINE NITRITE NEGATIVE (NEGATIVE); URINE PROTEIN NEGATIVE (NEGATIVE); URINE UROBILINOGEN NEGATIVE mg/dL (0.2-1.0)
[2017-03-10 12:53] LABS: URINE LEUK ESTERASE 1+ (NEGATIVE)
[2017-03-10 12:57] LABS: URINE RBC <1 /hpf (0-3); URINE WBC 9 /hpf (3-5)
--- NOTE | 2017-03-10 13:51 | MSN ---
Progress Note (SOAP) - Subjective Chief Complaint: L Hip pain History of Present Illness: No events overnight. Pt says her pain has not been well controlled on oxycodone , states a 9/10 hip pain worsened by movement. She is tolerating pureed diet but still states eating is difficult, denies any pain on swallowing. Denies any loss of sensation, incontinence, hematuria/hematochezia/melena, or any other complaints. - Current Medications Current Medications: Active Medications Abacavir Sulfate (Ziagen -) 300 mg PO BID [facility] Last Admin: 03/10/17 09:18 Dose: 300 mg Amlodipine Besylate (Norvasc -) 10 mg PO DAILY [facility] Last Admin: 03/10/17 09:17 Dose: 10 mg Fluconazole (Diflucan -) 100 mg PO DAILY [facility] Last Admin: 03/10/17 09:17 Dose: 100 mg Gabapentin (Neurontin -) 400 mg PO DAILY [facility] Last Admin: 03/10/17 09:17 Dose: 400 mg Heparin Sodium (Porcine) (Heparin -) 5,000 unit SQ TID [facility] Last Admin: 03/10/17 05:45 Dose: 5,000 unit Hydromorphone HCl (Dilaudid Injection -) 0.5 mg IM Q4H PRN PRN Reason: PAIN Last Admin: 03/10/17 12:17 Dose: 0.5 mg Sodium Chloride (Normal Saline -) 1,000 mls @ 125 mls/hr IV ASDIR [facility] Stop: 03/10/17 23:14 Last Admin: 03/10/17 06:51 Dose: 125 mls/hr Lamivudine (Epivir -) 300 mg PO DAILY [facility] Last Admin: 03/10/17 09:18 Dose: 300 mg Metoprolol Tartrate (Lopressor -) 25 mg PO DAILY [facility] Last Admin: 03/10/17 09:17 Dose: 25 mg Morphine Sulfate (Morphine Injection -) 4 mg IVPUSH Q4H PRN PRN Reason: PAIN Last Admin: 03/09/17 21:44 Dose: 4 mg Nystatin (Nystatin Oral Suspension -) 500,000 units PO Q6HPO [facility] Last Admin: 03/10/17 12:17 Dose: 500,000 units - Objective Vital Signs: Vital Signs Temperature 97.8 F 03/10/17 09:00 Pulse Rate 80 03/10/17 09:00 Respiratory Rate 20 03/10/17 10:00 Blood Pressure 110/81 03/10/17 09:00 O2 Sat by Pulse Oximetry (%) 100 03/10/17 10:00 Constitutional: Yes: Cachectic, Moderate Distress Eyes: Yes: WNL, Conjunctiva Clear, EOM Intact HENT: Yes: Normocephalic, Thrush Neck: Yes: WNL, Supple Cardiovascular: Yes: WNL, Regular Rate and Rhythm Respiratory: Yes: WNL, Regular, CTA Bilaterally. No: Cough, Diminished, Rales, Rhonchi, Wheezes Gastrointestinal: Yes: WNL, Normal Bowel Sounds, Soft. No: Melena, Rectal Bleeding, Tenderness, Rebound, Vomiting ...Rectal Exam: Yes: Deferred Musculoskeletal: Yes: Other (L hip pain). No: Muscle Pain, Muscle Weakness Extremities: Yes: Other (L hip externally rotated and shortened, good pulses). No: Calf Tenderness, Delayed Capillary Refill Integumentary: Yes: WNL Neurological: Yes: WNL, Alert, Oriented ...Motor Strength: Yes: WNL Labs Lab Results: CBC, BMP 03/10/17 09:00 03/10/17 09:00 Laboratory Results - last 24 hr 03/10/17 03/10/17 03/10/17 09:00 09:00 11:15 WBC 3.8 L RBC 4.41 Hgb 14.5 Hct 44.1 MCV 100.1 H MCH 33.0 MCHC 33.0 RDW 14.3 Plt Count 125 L MPV 10.0 Platelet Estimate Adequate Platelet Comment No clumping noted Sodium 138 Potassium 4.0 Chloride 101 Carbon Dioxide 30 Anion Gap 7 L BUN 14 D Creatinine 0.7 D Random Glucose 78 Calcium 9.4 Creatine Kinase 889 H Creatine Kinase Index 0.5 CK-MB (CK-2) 4.738 H Urine Color Ltyellow Urine Appearance Clear Urine pH 7.0 D Urine Protein Negative Urine Glucose (UA) 1+ H Urine Ketones Trace H Urine Blood Negative Urine Nitrite Negative Urine Bilirubin Negative Urine Urobilinogen Negative Ur Leukocyte Esterase 1+ H Urine RBC <1 Urine WBC 9 Ur Epithelial Cells Rare Imaging - Results Chest X-ray: Image Reviewed X-ray: Image Reviewed Cat Scan: Report Reviewed Assessment/Plan #L hip fracture -S/p mechanical fall, however 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 -Ortho eval and plan for L hemiarthroplasty. -Pt will be NPO after midnight. -Changed pain medication to dilaudid. -Will require subacute rehab after surgery. #Rhabdomyolysis -Due to immobility x2 days. -CK trending down. Can also be due to HARRT therapy. -Cont IVF, no need to repeat CK. #TERESA -Due to dehydration and TERESA. improved. -Cont IVF. avoid nephrotoxic agents #Candidasis -Thrush seen on exam, eosphageal candidiasis suspected. nystatin swish and swallow, fluconazole po. #Dysphagia -Speech saw patient for swallowing, recommneded pureed diet. Likley due to candidiasis. concern for weight loss. speech and swallow eval. manager functional eval #HIV on HARRT -ID evaluated, recent CD4 count was 47. Per ID recommendatinos, continue HAART. #HTN -Controlled. cont metoprolol #HCV -s/p harvoni #DVT ppx -Hep sq
--- NOTE | 2017-03-10 14:05 | PN ---
Physical Exam: SUBJECTIVE: Patient seen and examined at bed side.No events overnight. Pt says her pain has not been well controlled on oxycodone, states a 9/10 hip pain worsened by movement. She is tolerating pureed diet but still states eating is difficult, denies any pain on swallowing. Denies any loss of sensation, hematuria/hematochezia/melena, or any other complaints. OBJECTIVE: Vital Signs Period Temp Pulse Resp BP Sys/Johnson Pulse Ox Last 24 Hr 97 F-98.6 F 65-80 18-20 109-132/73-87 100 GENERAL: The patient is awake, alert, and fully oriented, in no acute distress. HEAD: Normal with no signs of trauma. EYES: PERRL, sclera anicteric, conjunctiva clear. No ptosis. ENT: moist mucous membranes. NECK: Trachea midline, full range of motion, supple. LUNGS: Breath sounds equal, clear to auscultation bilaterally, no wheezes, no crackles, no accessory muscle use. HEART: Regular rate and rhythm, S1, S2 without murmur, rub or gallop. ABDOMEN: Soft, nontender, nondistended, normoactive bowel sounds, no guarding, no rebound, no hepatosplenomegaly, no masses. EXTREMITIES: 2+ pulses, warm, well-perfused, no edema. unable to examined due to left hip pain. NEUROLOGICAL: Normal speech, gait not observed. PSYCH: Normal mood, normal affect. SKIN: Warm, dry, normal turgor, no rashes or lesions noted Laboratory Results - last 24 hr 03/10/17 03/10/17 03/10/17 09:00 09:00 11:15 WBC 3.8 L RBC 4.41 Hgb 14.5 Hct 44.1 MCV 100.1 H MCH 33.0 MCHC 33.0 RDW 14.3 Plt Count 125 L MPV 10.0 Platelet Estimate Adequate Platelet Comment No clumping noted Sodium 138 Potassium 4.0 Chloride 101 Carbon Dioxide 30 Anion Gap 7 L BUN 14 D Creatinine 0.7 D Random Glucose 78 Calcium 9.4 Creatine Kinase 889 H Creatine Kinase Index 0.5 CK-MB (CK-2) 4.738 H Urine Color Ltyellow Urine Appearance Clear Urine pH 7.0 D Urine Protein Negative Urine Glucose (UA) 1+ H Urine Ketones Trace H Urine Blood Negative Urine Nitrite Negative Urine Bilirubin Negative Urine Urobilinogen Negative Ur Leukocyte Esterase 1+ H Urine RBC <1 Urine WBC 9 Ur Epithelial Cells Rare Active Medications Generic Name Dose Route Start Last Admin Trade Name Ministerio PRN Reason Stop Dose Admin Abacavir Sulfate 300 mg 03/09/17 10:00 03/10/17 09:18 Ziagen - PO 300 mg BID ELLIE Administration Amlodipine Besylate 10 mg 03/09/17 10:00 03/10/17 09:17 Norvasc - PO 10 mg DAILY ELLIE Administration Fluconazole 100 mg 03/09/17 11:00 03/10/17 09:17 Diflucan - PO 100 mg DAILY ELLIE Administration Gabapentin 400 mg 03/09/17 10:00 03/10/17 09:17 Neurontin - PO 400 mg DAILY ELLIE Administration Heparin Sodium (Porcine) 5,000 unit 03/08/17 23:45 03/10/17 13:51 Heparin - SQ 5,000 unit TID ELLIE Administration Hydromorphone HCl 0.5 mg 03/10/17 11:32 03/10/17 12:17 Dilaudid Injection - IM 0.5 mg Q4H PRN Administration PAIN Sodium Chloride 1,000 mls @ 125 mls/hr 03/10/17 06:33 03/10/17 06:51 Normal Saline - IV 03/10/17 23:14 125 mls/hr ASDIR ELLIE Administration Lamivudine 300 mg 03/09/17 11:00 03/10/17 09:18 Epivir - PO 300 mg DAILY ELLIE Administration Metoprolol Tartrate 25 mg 03/09/17 10:00 03/10/17 09:17 Lopressor - PO 25 mg DAILY ELLIE Administration Morphine Sulfate 4 mg 03/09/17 06:12 03/09/17 21:44 Morphine Injection - IVPUSH 4 mg Q4H PRN Administration PAIN Nystatin 500,000 units 03/09/17 06:00 03/10/17 12:17 Nystatin Oral Suspension - PO 500,000 units Q6HPO ELLIE Administration ASSESSMENT/PLAN: 61yo F with PMH of HIV, Hep C, HTN presents s/p fall and Left hip pain was admitted to Med-Surg for Left hip fx. # Left hip fx S/p mechanical fall - Ortho Consulted , will operate on her Thursday - pain switch to Dilauded IV 0.4 mg Q4H PRN - increased Percocet to X3 daily -Bed rest -Will benefit from [facility] Post op # rhabdomyolysis -due to immobility x2 days vs HAAART therapy - NS @ 125 ml/hr for hydration -CK 2184 - ID recommend conitinue HAART therapy # Dysphagia due to Oral candidasis - nystatin swish and swallow, -fluconazole po ordered - Speach and swallow eval: Limited cooperation, rare verbalizations, accepted small amounts of puree from tip of spoon and small sips of ensure.Unable to masticate at this time, Delayed swallow, labored, generated 2-3 times per bolus. White patches in oral cavity. - Direct Marketing Manager consult #TERESA -due to dehydration and TERESA. improved -cont IVF. -avoid nephrtotoxic agents - BUN/Cr 32/0.9 # HIV - cont. home HAART meds of Abacavir 300mg PO BID and Prezcobix 800mg/150mg PO daily (per ID) - ID continue her home meds for #HTN - pain management - cont. home meds of Lopressor 25mg PO daily and Amlodipine 10mg PO daily # HEPC : S/p Harvoni # FEN - Fluids: NS @ 125 ml/hr - Electrolytes: wnl, cont. to monitor - Nutrition:npo after midnight (Thursday) , Surgery on Thursday # Prophylaxis - Heparin 5000U q8hr for DVT prophylaxis Wei Galicia MD, PGY1 Visit type - Emergency Visit Emergency Visit: Yes ED Registration Date: 03/08/17 Care time: The patient presented to the Emergency Department on the above date and was hospitalized for further evaluation of their emergent condition. - New Patient This patient is new to me today: No - Critical Care Critical Care patient: No
--- NOTE | 2017-03-10 14:06 | PN ---
Teaching Attending Note Name of Resident: Wei Galicia ATTENDING PHYSICIAN STATEMENT I saw and evaluated the patient. I reviewed the resident's note and discussed the case with the resident. I agree with the resident's findings and plan as documented. SUBJECTIVE: Patient complains of left hip pain. OBJECTIVE: Vital Signs Period Temp Pulse Resp BP Sys/Johnson Pulse Ox Last 24 Hr 97 F-98.6 F 65-80 18-20 109-132/73-87 100 HEART: S1S2, RRR LUNGS: Clear ABDOMEN: Soft, non-tender, non-distended, normal BS EXTREMITIES: No edema ASSESSMENT AND PLAN: This is a 61 year old woman with a history of HIV, HCV, HTN, hyperlipidemia, anemia, asthma who presented to the ER with left hip pain after a fall. 1. Left femoral neck fracture - Plan for hemiarthroplasty tomorrow - Pain control 2. Rhabdomyolysis - Improving - Continue IV fluid 3. Acute kidney injury secondary to dehydration - Improved 4. Polycythemia secondary to dehydration - Improved 5. Dysphagia secondary to oral/esophageal candidiasis - Continue Diflucan, Nystatin swish and swallow 6. HIV - On Epivir, Ziagen 7. HTN - Continue Lopressor, Norvasc 8. Hepatitis C 9. Hyperlipidemia 10. Asthma - Stable
--- NOTE | 2017-03-10 14:07 | PN ---
Progress Note, TRAIN CALLER - Note Progress Note: Selected Entries 03/09/17 03/09/17 03/09/17 06:55 08:58 12:52 Breakfast 25% Lunch 25% Supper Temperature 98.4 F 98.0 F 03/09/17 03/09/17 03/09/17 16:00 18:14 22:00 Breakfast Lunch Supper Temperature 97.9 F 98 F 97.2 F L 03/09/17 03/10/17 03/10/17 22:51 02:00 06:20 Breakfast Lunch Supper 25% Temperature 97 F L 98.6 F 03/10/17 09:00 Breakfast Lunch Supper Temperature 97.8 F Laboratory Tests 03/10/17 09:00 WBC 3.8 L Treated for thrush. Assist with meals. Encourage supplements b/n meals.
--- NOTE | 2017-03-10 15:23 | PN ---
Progress Note (short form) - Note Progress Note: AVSS RESTING COMFORTABLY PATIENT ON SCHEDULE FOR HEMIARTHROPLASTY TOMORROW
[2017-03-11] MEDS: NYSTATIN 500,000 UNITS/5 ML SUSPENSION PO SCH ×3 (05:45→17:27)
[2017-03-11] MEDS: HEPARIN NA (PORCINE) 5,000 UNITS/ML 1ML VIAL SQ SCH ×3 (05:46→21:06)
[2017-03-11] MEDS: HYDROmorphone HCL CARPU-JECT 1 MG/1 ML DISP.SYRIN IM PRN ×4 (06:31→21:48)
[2017-03-11] MEDS: METOPROLOL TARTRATE 25 MG TABLET (FP) PO SCH (09:53)
[2017-03-11] MEDS: FLUCONAZOLE 100 MG TABLET (UD) PO SCH (09:53)
[2017-03-11] MEDS: amLODIPine BESYLATE 10 MG TABLET (FP) PO SCH (09:53)
[2017-03-11] MEDS: GABAPENTIN 400 MG CAPSULE (FP) PO SCH (09:53)
[2017-03-11] MEDS ORDERED: PT OWN MED DRAWER 7, Y5N ONE (09:55)
[2017-03-11] MEDS: ABACAVIR SULFATE 300 MG TABLET PO SCH ×2 (09:56→21:07)
[2017-03-11] MEDS ORDERED: ACETAMINOPHEN 325 MG TABLET (FP) PO ONE (10:00)
[2017-03-11] MEDS: SODIUM CHLORIDE 1,000 ML IV SCH (10:01)
--- NOTE | 2017-03-11 12:23 | PN ---
Teaching Attending Note Name of Resident: Wei Galicia ATTENDING PHYSICIAN STATEMENT I saw and evaluated the patient. I reviewed the resident's note and discussed the case with the resident. I agree with the resident's findings and plan as documented. SUBJECTIVE: Patient complaining of left hip pain. OBJECTIVE: Vital Signs Period Temp Pulse Resp BP Sys/Johnson Pulse Ox Last 24 Hr 97.8 F-98.8 F 67-92 18-20 110-133/78-87 100 HEART: S1S2, RRR LUNGS: Clear ABDOMEN: Soft, non-tender, non-distended, normal BS EXTREMITIES: No edema Current Medications Generic Name Dose Route Start Last Admin Trade Name Freq PRN Reason Stop Dose Admin Abacavir Sulfate 300 mg 03/09/17 10:00 03/11/17 09:56 Ziagen - PO 300 mg BID ELLIE Administration Amlodipine Besylate 10 mg 03/09/17 10:00 03/11/17 09:53 Norvasc - PO 10 mg DAILY ELLIE Administration Fluconazole 100 mg 03/09/17 11:00 03/11/17 09:53 Diflucan - PO 100 mg DAILY ELLIE Administration Gabapentin 400 mg 03/09/17 10:00 03/11/17 09:53 Neurontin - PO 400 mg DAILY ELLIE Administration Heparin Sodium (Porcine) 5,000 unit 03/08/17 23:45 03/11/17 13:26 Heparin - SQ Not Given TID ELLIE Hydromorphone HCl 0.5 mg 03/10/17 11:32 03/11/17 17:38 Dilaudid Injection - IM 0.5 mg Q4H PRN Administration PAIN Sodium Chloride 1,000 mls @ 75 mls/hr 03/11/17 08:45 03/11/17 10:01 Normal Saline - IV 03/12/17 22:04 75 mls/hr ASDIR ELLIE Administration Lamivudine 300 mg 03/09/17 11:00 03/11/17 09:57 Epivir - PO 300 mg DAILY ELLIE Administration Metoprolol Tartrate 25 mg 03/09/17 10:00 03/11/17 09:53 Lopressor - PO 25 mg DAILY ELLIE Administration Morphine Sulfate 4 mg 03/09/17 06:12 03/09/17 21:44 Morphine Injection - IVPUSH 4 mg Q4H PRN Administration PAIN Nystatin 500,000 units 03/09/17 06:00 03/11/17 17:27 Nystatin Oral Suspension - PO 500,000 units Q6HPO ELLIE Administration ASSESSMENT AND PLAN: This is a 61 year old woman with a history of HIV, HCV, HTN, hyperlipidemia, anemia, asthma who presented to the ER with left hip pain after a fall. 1. Left femoral neck fracture - Plan for hemiarthroplasty today - Pain control 2. Rhabdomyolysis - Improving - Continue IV fluid 3. Acute kidney injury secondary to dehydration - Improved 4. Polycythemia secondary to dehydration - Improved 5. Dysphagia secondary to oral/esophageal candidiasis - Continue Diflucan, Nystatin swish and swallow 6. HIV - On Epivir, Ziagen 7. HTN - Continue Lopressor, Norvasc 8. Hepatitis C 9. Hyperlipidemia 10. Asthma - Stable
--- NOTE | 2017-03-11 13:13 | PN ---
Physical Exam: SUBJECTIVE: Patient seen and examined at bed side.Npo after mid night . Pt says her pain has not been well controlled on oxycodone, states a 9/10 hip pain worsened by movement. She denies any loss of sensation, hematuria/hematochezia/ melena, or any other complaints. She ate one hour before surgery which is postponed till tomorrow3 PM. OBJECTIVE: Vital Signs Period Temp Pulse Resp BP Sys/Johnson Pulse Ox Last 24 Hr 97.8 F-98.8 F 67-92 18-20 110-133/78-95 100 GENERAL: The patient is awake, alert, and fully oriented, in no acute distress. HEAD: Normal with no signs of trauma. EYES: PERRL, extraocular movements intact, sclera anicteric, conjunctiva clear. No ptosis. ENT: Ears normal, nares patent, oropharynx clear without exudates, moist mucous membranes. NECK: Trachea midline, full range of motion, supple. LUNGS: Breath sounds equal, clear to auscultation bilaterally, no wheezes, no crackles, no accessory muscle use. HEART: Regular rate and rhythm, S1, S2 without murmur, rub or gallop. ABDOMEN: Soft, nontender, nondistended, normoactive bowel sounds, no guarding, no rebound, no hepatosplenomegaly, no masses. EXTREMITIES: 2+ pulses, warm, well-perfused, no edema. NEUROLOGICAL: Cranial nerves II through XII grossly intact. Normal speech, gait not observed. PSYCH: Normal mood, normal affect. SKIN: Warm, dry, normal turgor, no rashes or lesions noted Laboratory Results - last 24 hr 03/10/17 11:15 Urine Color Ltyellow Urine Appearance Clear Urine pH 7.0 D Ur Specific [place] 1.015 Urine Protein Negative Urine Glucose (UA) 1+ H Urine Ketones Trace H Urine Blood Negative Urine Nitrite Negative Urine Bilirubin Negative Urine Urobilinogen Negative Ur Leukocyte Esterase 1+ H Urine RBC <1 Urine WBC 9 Ur Epithelial Cells Rare Active Medications Generic Name Dose Route Start Last Admin Trade Name Freq PRN Reason Stop Dose Admin Abacavir Sulfate 300 mg 03/09/17 10:00 03/11/17 09:56 Ziagen - PO 300 mg BID ELLIE Administration Amlodipine Besylate 10 mg 03/09/17 10:00 03/11/17 09:53 Norvasc - PO 10 mg DAILY ELLIE Administration Fluconazole 100 mg 03/09/17 11:00 03/11/17 09:53 Diflucan - PO 100 mg DAILY ELLIE Administration Gabapentin 400 mg 03/09/17 10:00 03/11/17 09:53 Neurontin - PO 400 mg DAILY ELLIE Administration Heparin Sodium (Porcine) 5,000 unit 03/08/17 23:45 03/11/17 05:46 Heparin - SQ Not Given TID ELLIE Hydromorphone HCl 0.5 mg 03/10/17 11:32 03/11/17 10:31 Dilaudid Injection - IM 0.5 mg Q4H PRN Administration PAIN Sodium Chloride 1,000 mls @ 75 mls/hr 03/11/17 08:45 03/11/17 10:01 Normal Saline - IV 03/12/17 22:04 75 mls/hr ASDIR ELLIE Administration Lamivudine 300 mg 03/09/17 11:00 03/11/17 09:57 Epivir - PO 300 mg DAILY ELLIE Administration Metoprolol Tartrate 25 mg 03/09/17 10:00 03/11/17 09:53 Lopressor - PO 25 mg DAILY ELLIE Administration Morphine Sulfate 4 mg 03/09/17 06:12 03/09/17 21:44 Morphine Injection - IVPUSH 4 mg Q4H PRN Administration PAIN Nystatin 500,000 units 03/09/17 06:00 03/11/17 05:45 Nystatin Oral Suspension - PO Not Given Q6HPO [facility] ASSESSMENT/PLAN: 61yo F with PMH of HIV, Hep C, HTN presents s/p fall and Left hip pain was admitted to Med-Surg for Left hip fx. # Left hip fx S/p mechanical fall - Ortho Consulted , will operate on her Thursday - pain switch to Dilauded IV 0.4 mg Q4H PRN - increased Percocet to X3 daily -Bed rest -Will benefit from VINITA Post op # rhabdomyolysis -due to immobility x2 days vs HAAART therapy - NS @ 100 ml/hr for hydration -CK 2184 - conitinue HAART therapy # Dysphagia due to Oral candidasis - nystatin swish and swallow, -fluconazole po ordered - Speach and swallow eval: Limited cooperation, rare verbalizations, accepted small amounts of puree from tip of spoon and small sips of ensure.Unable to masticate at this time, Delayed swallow, labored, generated 2-3 times per bolus. White patches in oral cavity. - Bonderizer Operator consult #TERESA -due to dehydration and TERESA. improved -cont IVF. -avoid nephrtotoxic agents - BUN/Cr 32/0.9 # HIV - cont. home HAART meds of Abacavir 300mg PO BID and Prezcobix 800mg/150mg PO daily (per ID) - ID continue her home meds for #HTN - pain management - cont. home meds of Lopressor 25mg PO daily and Amlodipine 10mg PO daily # HEPC : Chronic # Hyperlipidimia # Asthma, Controlled. # FEN - Fluids: NS @ 100 ml/hr - Electrolytes: wnl, cont. to monitor - Nutrition:npo after midnight , Surgery due tomorrow Thursday # Prophylaxis - Heparin 5000U q8hr for DVT prophylaxis Wei Galicia MD, PGY1 Visit type - Emergency Visit Emergency Visit: Yes ED Registration Date: 03/08/17 Care time: The patient presented to the Emergency Department on the above date and was hospitalized for further evaluation of their emergent condition. - New Patient This patient is new to me today: No - Critical Care Critical Care patient: No
--- NOTE | 2017-03-11 17:06 | PN ---
Progress Note (short form) - Note Progress Note: Ortho Pt was schedule for OR today however pt ate so surgery will be postponed until tomorrow a/p NPO OR tomorrow d/w Dr. Young
[2017-03-12] MEDS ORDERED: BACITRACIN 50,000 UNITS VIAL TP ONE
[2017-03-12] MEDS: NYSTATIN 500,000 UNITS/5 ML SUSPENSION PO SCH ×6 (00:17→23:26)
[2017-03-12] MEDS: SODIUM CHLORIDE 1,000 ML IV SCH ×3 (02:00→19:16)
[2017-03-12] MEDS: HYDROmorphone HCL CARPU-JECT 1 MG/1 ML DISP.SYRIN IM PRN ×4 (02:30→22:57)
[2017-03-12] MEDS: HEPARIN NA (PORCINE) 5,000 UNITS/ML 1ML VIAL SQ SCH ×2 (05:39→13:53)
--- NOTE | 2017-03-12 08:18 | PN ---
Physical Exam: SUBJECTIVE: Patient seen and examined at bed side. No acute events over night. She is NPO. She denies any N/V/D/C. Pain is controlled. OBJECTIVE: Vital Signs Period Temp Pulse Resp BP Sys/Johnson Pulse Ox Last 24 Hr 97.6 F-97.7 F 60-72 17-20 110-132/77-95 100 GENERAL: The patient is awake, alert, and fully oriented, in no acute distress. HEAD: Normal with no signs of trauma. EYES: PERRL, extraocular movements intact, sclera anicteric, conjunctiva clear. No ptosis. ENT: Ears normal, nares patent, oropharynx clear without exudates, moist mucous membranes. NECK: Trachea midline, full range of motion, supple. LUNGS: Breath sounds equal, clear to auscultation bilaterally, no wheezes, no crackles, no accessory muscle use. HEART: Regular rate and rhythm, S1, S2 without murmur, rub or gallop. ABDOMEN: Soft, nontender, nondistended, normoactive bowel sounds, no guarding, no rebound, no hepatosplenomegaly, no masses. EXTREMITIES: 2+ pulses, warm, well-perfused, no edema. NEUROLOGICAL: Cranial nerves II through XII grossly intact. Normal speech, gait not observed. PSYCH: Normal mood, normal affect. SKIN: Warm, dry, normal turgor, no rashes or lesions noted Active Medications Generic Name Dose Route Start Last Admin Trade Name Freq PRN Reason Stop Dose Admin Abacavir Sulfate 300 mg 03/09/17 10:00 03/11/17 21:07 Ziagen - PO 300 mg BID LELIE Administration Amlodipine Besylate 10 mg 03/09/17 10:00 03/11/17 09:53 Norvasc - PO 10 mg DAILY ELLIE Administration Fluconazole 100 mg 03/09/17 11:00 03/11/17 09:53 Diflucan - PO 100 mg DAILY ELLIE Administration Gabapentin 400 mg 03/09/17 10:00 03/11/17 09:53 Neurontin - PO 400 mg DAILY ELLIE Administration Heparin Sodium (Porcine) 5,000 unit 03/08/17 23:45 03/12/17 05:39 Heparin - SQ Not Given TID ELLIE Hydromorphone HCl 0.5 mg 03/10/17 11:32 03/12/17 02:30 Dilaudid Injection - IM 0.5 mg Q4H PRN Administration PAIN Sodium Chloride 1,000 mls @ 75 mls/hr 03/11/17 08:45 03/12/17 02:00 Normal Saline - IV 03/12/17 22:04 75 mls/hr ASDIR ELLIE Administration Lamivudine 300 mg 03/09/17 11:00 03/11/17 09:57 Epivir - PO 300 mg DAILY ELLIE Administration Metoprolol Tartrate 25 mg 03/09/17 10:00 03/11/17 09:53 Lopressor - PO 25 mg DAILY ELLIE Administration Nystatin 500,000 units 03/09/17 06:00 03/12/17 05:39 Nystatin Oral Suspension - PO Not Given Q6HPO ELLIE ASSESSMENT/PLAN: 61yo F with PMH of HIV, Hep C, HTN presents s/p fall and Left hip pain was admitted to Med-Surg for Left hip fx. # Left hip fx S/p mechanical fall - Ortho Consulted , will operate on her Thursday - pain switch to Dilauded IV 0.4 mg Q4H PRN - increased Percocet to X3 daily -Bed rest -Will benefit from VINITA Post op # rhabdomyolysis -due to immobility x2 days vs HAAART therapy - NS @ 100 ml/hr for hydration -CK 2184 - conitinue HAART therapy # Dysphagia due to Oral candidasis - nystatin swish and swallow, -fluconazole po ordered - Speach and swallow eval: Limited cooperation, rare verbalizations, accepted small amounts of puree from tip of spoon and small sips of ensure.Unable to masticate at this time, Delayed swallow, labored, generated 2-3 times per bolus. White patches in oral cavity. - Rackman consult #TERESA -due to dehydration and TERESA. improved -cont IVF. -avoid nephrtotoxic agents - BUN/Cr 32/0.9 # HIV - cont. home HAART meds of Abacavir 300mg PO BID and Prezcobix 800mg/150mg PO daily (per ID) - ID continue her home meds for #HTN - pain management - cont. home meds of Lopressor 25mg PO daily and Amlodipine 10mg PO daily # HEPC : Chronic # Hyperlipidimia # Asthma, Controlled. # FEN - Fluids: NS @ 100 ml/hr - Electrolytes: wnl, cont. to monitor - Nutrition:npo after midnight , Surgery due today at 3 pm # Prophylaxis - Heparin 5000U q8hr for DVT prophylaxis Wei Galicia MD, PGY1 Visit type - Emergency Visit Emergency Visit: Yes ED Registration Date: 03/08/17 Care time: The patient presented to the Emergency Department on the above date and was hospitalized for further evaluation of their emergent condition. - New Patient This patient is new to me today: No - Critical Care Critical Care patient: No
[2017-03-12] MEDS ORDERED: SODIUM CHLORIDE 1,000 ML IV SCH (08:20)
[2017-03-12] MEDS: FLUCONAZOLE 100 MG TABLET (UD) PO SCH (09:35)
[2017-03-12] MEDS: amLODIPine BESYLATE 10 MG TABLET (FP) PO SCH (09:35)
[2017-03-12] MEDS: GABAPENTIN 400 MG CAPSULE (FP) PO SCH (09:35)
[2017-03-12] MEDS: ABACAVIR SULFATE 300 MG TABLET PO SCH ×2 (09:35→22:17)
[2017-03-12] MEDS: METOPROLOL TARTRATE 25 MG TABLET (FP) PO SCH (09:35)
--- NOTE | 2017-03-12 15:06 | PN ---
Teaching Attending Note Name of Resident: Wei Galiica ATTENDING PHYSICIAN STATEMENT I saw and evaluated the patient. I reviewed the resident's note and discussed the case with the resident. I agree with the resident's findings and plan as documented. SUBJECTIVE: OBJECTIVE: Vital Signs Period Temp Pulse Resp BP Sys/Johnson Pulse Ox Last 24 Hr 97.6 F-98.1 F 57-72 17-20 110-132/77-82 100-100 HEART: S1S2, RRR LUNGS: Clear ABDOMEN: Soft, non-tender, non-distended, normal BS EXTREMITIES: No edema Current Medications Generic Name Dose Route Start Last Admin Trade Name Freq PRN Reason Stop Dose Admin Abacavir Sulfate 300 mg 03/12/17 22:00 03/13/17 10:17 Ziagen - PO 300 mg BID ELLIE Administration Amlodipine Besylate 10 mg 03/13/17 10:00 03/13/17 10:08 Norvasc - PO 10 mg DAILY ELLIE Administration Enoxaparin Sodium 30 mg 03/13/17 14:00 03/13/17 14:35 Lovenox - SQ 30 mg DAILY@14 ELLIE Administration Fluconazole 100 mg 03/13/17 10:00 03/13/17 10:08 Diflucan - PO 100 mg DAILY ELLIE Administration Gabapentin 400 mg 03/13/17 10:00 03/13/17 10:08 Neurontin - PO 400 mg DAILY ELLIE Administration Sodium Chloride 1,000 mls @ 83 mls/hr 03/12/17 17:15 03/13/17 17:33 Normal Saline - IV Not Given ASDIR ELLIE Sodium Chloride 1,000 mls @ 75 mls/hr 03/12/17 17:52 03/13/17 10:25 Normal Saline - IV 03/14/17 22:04 75 mls/hr ASDIR ELLIE Administration Lamivudine 300 mg 03/13/17 10:00 03/13/17 10:17 Epivir - PO 300 mg DAILY ELLIE Administration Metoprolol Tartrate 25 mg 03/13/17 10:00 03/13/17 10:07 Lopressor - PO 25 mg DAILY ELLIE Administration Nystatin 500,000 units 03/12/17 18:00 03/13/17 17:33 Nystatin Oral Suspension - PO Not Given Q6HPO ELLIE Oxycodone HCl 5 mg 03/13/17 13:05 03/13/17 14:32 Roxicodone - PO 5 mg Q4H PRN Administration PAIN ASSESSMENT AND PLAN: This is a 61 year old woman with a history of HIV, HCV, HTN, hyperlipidemia, anemia, asthma who presented to the ER with left hip pain after a fall. 1. Left femoral neck fracture - Plan for hemiarthroplasty today - Pain control 2. Rhabdomyolysis - Improving - Continue IV fluid 3. Acute kidney injury secondary to dehydration - Improved 4. Polycythemia secondary to dehydration - Improved 5. Dysphagia secondary to oral/esophageal candidiasis - Continue Diflucan, Nystatin swish and swallow 6. HIV - On Epivir, Ziagen 7. HTN - Continue Lopressor, Norvasc 8. Hepatitis C 9. Hyperlipidemia 10. Asthma - Stable
[2017-03-12] MEDS ORDERED: MIDAZOLAM HCL 2 MG/2 ML SINGLE DOSE VIAL ONE ×2 (15:40→16:22)
[2017-03-12] MEDS ORDERED: ceFAZolin SODIUM 1 GM VIAL ONE ×2 (16:10→22:53)
[2017-03-12] MEDS ORDERED: ceFAZolin SODIUM 1 GM VIAL IVPB ONE (16:10)
[2017-03-12] MEDS ORDERED: VANCOMYCIN 1,000 MG VIAL (RESTRICTED TO ID ONLY) ONE (16:19)
[2017-03-12] MEDS ORDERED: PROPOFOL 20 ML ONE (16:35)
[2017-03-12] MEDS ORDERED: VANCOMYCIN 1,000 MG VIAL (RESTRICTED TO ID ONLY) IVPB ONE (16:35)
--- NOTE | 2017-03-12 16:49 | OP ---
Operative Note - Note: Operative Date: 03/12/17 ([facility]) Pre-Operative Diagnosis: left femoral neck fx Operation: left hip hemiarthroplasty Post-Operative Diagnosis: Same as Pre-op Surgeon: Enio Bowman Etl Developer: Benton Crowe Anesthesiologist/SENIOR COURT OFFICE ASSISTANT: Aníbal Monroe Anesthesia: Spinal Specimens Removed: femoral head Estimated Blood Loss (mls): 100 Operative Report Dictated: Yes
[2017-03-12] MEDS ORDERED: ONDANSETRON 4 MG/2 ML VIAL IVPUSH PRN (17:08)
[2017-03-12] MEDS ORDERED: HYDROmorphone HCL CARPU-JECT 1 MG/1 ML DISP.SYRIN IVPUSH PRN (17:08)
[2017-03-12] MEDS ORDERED: PT OWN MED DRAWER 7, Y5N ONE (21:17)
[2017-03-12] MEDS ORDERED: DEXTROSE 5%-WATER - 50 ML IVPB ONE (22:53)
[2017-03-12] MEDS ORDERED: CEFAZOLIN 1 GM in DEXTROSE 5%-WATER - 50 ML IVPB SCH (23:00)
[2017-03-12] MEDS: CEFAZOLIN 1 GM in DEXTROSE 5%-WATER - 50 ML IVPB SCH (23:21)
[2017-03-13] MEDS: HYDROmorphone HCL CARPU-JECT 1 MG/1 ML DISP.SYRIN IM PRN ×2 (04:31→10:06)
[2017-03-13] MEDS ORDERED: PT OWN MED DRAWER 7, Y5N ONE ×3 (05:39→22:14)
--- NOTE | 2017-03-13 06:08 | SPEC ---
DATE OF OPERATION: 03/12/2017 OPERATION: Left hip Press-Fit hemiarthroplasty. PREOPERATIVE DIAGNOSIS: Left displaced femoral neck fracture. POSTOPERATIVE DIAGNOSIS: Left displaced femoral neck fracture. SURGICAL ATTENDING: Enio Bowman MD GRAPE GROWER: DEDRICK Llanos ANESTHESIA: Spinal. CLOSURE: A No. 5 Accolade II femoral stem with a 47 +4 bipolar, No. 1 Vicryl for capsule and fascia, 0 and 2 subcutaneous, and yrn to skin. ESTIMATED BLOOD LOSS: Negligible. COMPLICATIONS: None. CONDITION: To recovery room in stable condition. DESCRIPTION OF PROCEDURE: Patient was taken to the operating room on March 12, 2017. Anesthesia was administered by the anesthesiologist. IV Kefzol was given prophylactically prior to the case. Patient was placed in the lateral decubitus position with all prominences well padded. The left hip area was prepped and draped in the usual sterile fashion. A posterior approach was utilized to gain access to the hip. A 12- to 15-cm curved longitudinal incision over the posterior lateral aspect of the hip was incised and hemostasis achieved with Bovie cautery. Sharp dissection was carried down to the level of the fascia. The fascia was opened the entire length of the incision. The gluteus yaa fibers were spread, exposing the greater trochanter. A Charnley retractor was placed in this layer and care was taken not to impale sciatic nerve. Short external rotators were detached from their insertion to the greater trochanter and peeled off the capsule. A T-capsulotomy was then performed, down to the level of the labrum. The neck was osteotomized with oscillating saw at the appropriate level. The head was measured for diameter. A trial reduction of the appropriate size head to see if a good suction fit. The proximal femur was prepared using a box chisel. Intramedullary as well as serial broaches until the appropriate broach achieved good fit and fill with good stability. A trial reduction with the neck and bipolar achieved equal limb lengths and was stable to ruben flexion at 90 degrees of flexion, to marked adduction and internal rotation. Had a positive hang test, negative telescoping and was stable in external rotation and extension. The trial component was removed. The real broach was then malleted into place and the real bipolar was cold-welded to the trunnion. Identical limb lengths on all planes was described earlier with trials. The hip was irrigated out with copious amounts of antibiotic irrigation. Capsule was closed using 0 Vicryl, 0 Vicryl interrupted suture for the fascia was then used, and 2-0 for the subcutaneous and 3-0 Monocryl subcuticular to the skin with skin glue. The Aquacel dressing was applied and the patient was placed in the supine position. Bilateral SCDs and abduction pillow were applied. Patient was awakened from anesthesia and transferred to the recovery room in stable condition. No complications. Estimated blood loss less than 200 mL. Tiff LOUIS/[id number]
[2017-03-13] MEDS: NYSTATIN 500,000 UNITS/5 ML SUSPENSION PO SCH ×4 (06:13→23:10)
[2017-03-13] MEDS ORDERED: ceFAZolin SODIUM 1 GM VIAL ONE (06:24)
[2017-03-13] MEDS ORDERED: DEXTROSE 5%-WATER - 50 ML IVPB ONE (06:24)
[2017-03-13] MEDS: CEFAZOLIN 1 GM in DEXTROSE 5%-WATER - 50 ML IVPB SCH (06:32)
[2017-03-13] MEDS: METOPROLOL TARTRATE 25 MG TABLET (FP) PO SCH (10:07)
[2017-03-13] MEDS: amLODIPine BESYLATE 10 MG TABLET (FP) PO SCH (10:08)
[2017-03-13] MEDS: GABAPENTIN 400 MG CAPSULE (FP) PO SCH (10:08)
[2017-03-13] MEDS: FLUCONAZOLE 100 MG TABLET (UD) PO SCH (10:08)
[2017-03-13] MEDS: ABACAVIR SULFATE 300 MG TABLET PO SCH ×2 (10:17→22:16)
[2017-03-13] MEDS: lamiVUDine 150 MG TABLET PO SCH (10:17)
[2017-03-13] MEDS: SODIUM CHLORIDE 1,000 ML IV SCH ×4 (10:25→18:42)
[2017-03-13 10:27] LABS: MCH 33.5 pg (25.7-33.7); MCHC 34.4 g/dl (32.0-36.0); MEAN CELL VOLUME 97.2 fl (80-96); MEAN PLT VOLUME 9.2 fl (7.5-11.1); PLATELET COUNT 159 K/MM3 (134-434); RDW 13.9 % (11.6-15.6); WHITE BLOOD COUNT 5.7 K/mm3 (4.0-10.0)
--- NOTE | 2017-03-13 10:42 | PN ---
Progress Note (short form) - Note Progress Note: Ortho Pt seen and examined s/p left hip rima pod #1 Selected Entries 03/13/17 09:22 Temperature 97.9 F Pulse Rate 94 H Blood Pressure 143/83 Laboratory Tests 03/13/17 09:45 WBC 5.7 D Hgb 12.3 D Hct 35.6 D Plt Count 159 D dressing c/d/i, calf soft, nt nvi a/p PT wbat dvt ppx pain control d/c planning
[2017-03-13 10:51] LABS: ANION GAP 8 (8-16); CALCIUM 8.5 mg/dL (8.5-10.1); CO2 29 mmol/L (21-32); CREATININE 0.8 mg/dL (0.55-1.02); GLUCOSE,RANDOM 177 mg/dL (74-106)
--- NOTE | 2017-03-13 11:29 | PN ---
Progress Note, RADIOLOGY TRANSCRIPTIONIST - Note Progress Note: s/p left hip hemiarthroplasty Reg sodium controlled diet ordered. Tongue much better. white coating on lateral portions of tongue. Edentulous. She reports that she has dentures and can eat regular food. Poor po acceptance accept for Ensure and pudding. Selected Entries 03/12/17 03/12/17 03/12/17 06:00 09:19 14:00 Temperature 97.6 F 98.1 F 97.8 F 03/12/17 03/12/17 03/12/17 16:57 18:10 18:48 Temperature 96.0 F L 97.8 F 98.7 F 03/12/17 03/13/17 03/13/17 20:18 02:00 06:00 Temperature 98.9 F 98.9 F 98.7 F 03/13/17 09:22 Temperature 97.9 F Laboratory Tests 03/13/17 09:45 WBC 5.7 D Continues to want regular diet. Monitor for sufficient po acceptance. Downgrade to very soft, easy to chew, as indicated.
--- NOTE | 2017-03-13 13:22 | PN ---
Progress Note (short form) - Note Progress Note: POD #1 - s/p left hip hemiarthroplasty under spinal anesthesia. VSS. Pt. currently resting in bed c/o some pain - has dilaudid ordered. Pt. had rehab session earlier. No apparent anesthetic complications noted. Continue current care.
[2017-03-13] MEDS ORDERED: ENOXAPARIN NA (PORCINE) 30 MG/0.3 ML DISP.SYRIN SQ SCH (14:00)
--- NOTE | 2017-03-13 14:15 | PN ---
Physical Exam: SUBJECTIVE: Patient seen and examined at bed side, she is doing well after the surgery,and work with physical therapy. she still have some pain and will start her on Ocycodone 5 mg PO. She denies any N/V/D/C she denies chest pain, palpitation. OBJECTIVE: Vital Signs Period Temp Pulse Resp BP Sys/Johnson Pulse Ox Last 24 Hr 96.0 F-98.9 F 48-100 16-20 86-144/60-96 95-100 GENERAL: The patient is awake, alert, and fully oriented, in moderate distress. HEAD: Normal with no signs of trauma. EYES: PERRL, sclera anicteric, conjunctiva clear. No ptosis. ENT: Ears normal, nares patent, oropharynx clear without exudates, moist mucous membranes. NECK: Trachea midline, full range of motion, supple. LUNGS: Breath sounds equal, clear to auscultation bilaterally, no wheezes, no crackles, no accessory muscle use. HEART: Regular rate and rhythm, S1, S2 without murmur, rub or gallop. ABDOMEN: Soft, nontender, nondistended, normoactive bowel sounds, no guarding, no rebound, no hepatosplenomegaly, no masses. EXTREMITIES: 2+ pulses, warm, well-perfused, no edema. NEUROLOGICAL: . Normal speech, gait not observed. PSYCH: Normal mood, normal affect. SKIN: Warm, dry, normal turgor, no rashes or lesions noted Laboratory Results - last 24 hr 03/13/17 03/13/17 09:45 09:45 WBC 5.7 D RBC 3.66 Hgb 12.3 D Hct 35.6 D MCV 97.2 H MCH 33.5 MCHC 34.4 RDW 13.9 Plt Count 159 D MPV 9.2 Sodium 139 Potassium 3.3 L Chloride 102 Carbon Dioxide 29 Anion Gap 8 BUN 11 D Creatinine 0.8 Random Glucose 177 H D Calcium 8.5 Active Medications Generic Name Dose Route Start Last Admin Trade Name Freq PRN Reason Stop Dose Admin Abacavir Sulfate 300 mg 03/12/17 22:00 03/13/17 10:17 Ziagen - PO 300 mg BID ELLIE Administration Amlodipine Besylate 10 mg 03/13/17 10:00 03/13/17 10:08 Norvasc - PO 10 mg DAILY ELLIE Administration Enoxaparin Sodium 30 mg 03/13/17 14:00 Lovenox - SQ DAILY@14 ELLIE Fluconazole 100 mg 03/13/17 10:00 03/13/17 10:08 Diflucan - PO 100 mg DAILY ELLIE Administration Gabapentin 400 mg 03/13/17 10:00 03/13/17 10:08 Neurontin - PO 400 mg DAILY ELLIE Administration Sodium Chloride 1,000 mls @ 83 mls/hr 03/12/17 17:15 03/12/17 18:10 Normal Saline - IV 0 mls ASDIR ELLIE Administration Sodium Chloride 1,000 mls @ 75 mls/hr 03/12/17 17:52 03/13/17 10:25 Normal Saline - IV 03/14/17 22:04 75 mls/hr ASDIR ELLIE Administration Lamivudine 300 mg 03/13/17 10:00 03/13/17 10:17 Epivir - PO 300 mg DAILY ELLIE Administration Metoprolol Tartrate 25 mg 03/13/17 10:00 03/13/17 10:07 Lopressor - PO 25 mg DAILY ELLIE Administration Nystatin 500,000 units 03/12/17 18:00 03/13/17 12:01 Nystatin Oral Suspension - PO Not Given Q6HPO ELLIE Oxycodone HCl 5 mg 03/13/17 13:05 Roxicodone - PO Q4H PRN PAIN CBC, BMP 03/13/17 09:45 03/13/17 09:45 ASSESSMENT/PLAN: 61yo F with PMH of HIV, Hep C, HTN presents s/p fall and Left hip pain was admitted to Med-Surg for Left hip fx. # Left hip fx S/p mechanical fall s/p Surgery -s/p left hip hemiarthroplasty 03/12 - pain control: switch to Oxycodone 5 mg PO Q4H PRN -Dc Dilauded -Bed rest -Start PT -Will benefit from VINITA #Hypokalemia - Replete potassium # rhabdomyolysis, Improved -due to immobility x2 days vs HAAART therapy - NS @ 100 ml/hr for hydration -CK 889 # Dysphagia due to esophagus candidasis - nystatin swish and swallow, -fluconazole po ordered - Speach and swallow eval: Limited cooperation, rare verbalizations, accepted small amounts of puree from tip of spoon and small sips of ensure.Unable to masticate at this time, Delayed swallow, labored, generated 2-3 times per bolus. White patches in oral cavity. - Associate Financial Representative consult # underweight, Sever malnutrion - Likely 2/2 HIV vs low intake due to dysphagia and poor appetite - Low BMI 16.3 -sever depletion of muscle mass - Associate Financial Representative consult #TERESA , -due to dehydration. improved -cont IVF. -avoid nephrtotoxic agents - last BUN/Cr 32/0.9 # HIV - cont. home HAART meds of Abacavir 300mg PO BID and Prezcobix 800mg/150mg PO daily (per ID) #HTN -BP 134/90 - pain management - cont. home meds of Lopressor 25mg PO daily and Amlodipine 10mg PO daily - # HEPC : Chronic # Hyperlipidimia # Asthma, Stable # FEN - Fluids: NS @ 100 ml/hr - Electrolytes: wnl, cont. to monitor - Nutrition:low NA diet # Prophylaxis - Heparin 5000U q8hr for DVT prophylaxis Document Low BMI sever malnutrition This is a 61 year old woman with a history of HIV, HCV, HTN, hyperlipidemia, anemia, asthma who presented to the ER with left hip pain after a fall. 1. Left femoral neck fracture - s/p left hip hemiarthroplasty 03/12 - Physical therapy - Lovenox for DVT prophylaxis - Plan for rehab 2. Hypokalemia - Replete potassium 3. Rhabdomyolysis - Improved 4. Acute kidney injury secondary to dehydration - Improved 5. Polycythemia secondary to dehydration - Improved 6. Dysphagia secondary to oral/esophageal candidiasis - Continue Diflucan, Nystatin swish and swallow 7. HIV - On Epivir, Ziagen 8. HTN - Continue Lopressor, Norvasc 9. Hepatitis C 10. Hyperlipidemia 11. Asthma - Stable Visit type - Emergency Visit Emergency Visit: Yes ED Registration Date: 03/08/17 Care time: The patient presented to the Emergency Department on the above date and was hospitalized for further evaluation of their emergent condition. - New Patient This patient is new to me today: No - Critical Care Critical Care patient: No - Discharge Referral Referred to [facility] Med P.C.: Yes
[2017-03-13] MEDS: oxyCODONE HCL 5 MG TABLET PO PRN (14:32)
[2017-03-13] MEDS: ENOXAPARIN NA (PORCINE) 30 MG/0.3 ML DISP.SYRIN SQ SCH (14:35)
--- NOTE | 2017-03-13 18:22 | PN ---
Teaching Attending Note Name of Resident: Wei Galicia ATTENDING PHYSICIAN STATEMENT I saw and evaluated the patient. I reviewed the resident's note and discussed the case with the resident. I agree with the resident's findings and plan as documented. SUBJECTIVE: Patient complains of pain in left thigh. OBJECTIVE: Vital Signs Period Temp Pulse Resp BP Sys/Johnson Pulse Ox Last 24 Hr 97.9 F-98.9 F 73-100 16-20 132-144/83-99 95-98 HEART: S1S2, RRR LUNGS: Clear ABDOMEN: Soft, non-tender, non-distended, normal BS EXTREMITIES: No edema Current Medications Generic Name Dose Route Start Last Admin Trade Name Freq PRN Reason Stop Dose Admin Abacavir Sulfate 300 mg 03/12/17 22:00 03/13/17 10:17 Ziagen - PO 300 mg BID ELLIE Administration Amlodipine Besylate 10 mg 03/13/17 10:00 03/13/17 10:08 Norvasc - PO 10 mg DAILY ELLIE Administration Enoxaparin Sodium 30 mg 03/13/17 14:00 03/13/17 14:35 Lovenox - SQ 30 mg DAILY@14 ELLIE Administration Fluconazole 100 mg 03/13/17 10:00 03/13/17 10:08 Diflucan - PO 100 mg DAILY ELLIE Administration Gabapentin 400 mg 03/13/17 10:00 03/13/17 10:08 Neurontin - PO 400 mg DAILY ELLIE Administration Sodium Chloride 1,000 mls @ 83 mls/hr 03/12/17 17:15 03/13/17 17:33 Normal Saline - IV Not Given ASDIR ELLIE Sodium Chloride 1,000 mls @ 75 mls/hr 03/12/17 17:52 03/13/17 10:25 Normal Saline - IV 03/14/17 22:04 75 mls/hr ASDIR ELLIE Administration Lamivudine 300 mg 03/13/17 10:00 03/13/17 10:17 Epivir - PO 300 mg DAILY ELLIE Administration Metoprolol Tartrate 25 mg 03/13/17 10:00 03/13/17 10:07 Lopressor - PO 25 mg DAILY ELLIE Administration Nystatin 500,000 units 03/12/17 18:00 03/13/17 17:33 Nystatin Oral Suspension - PO Not Given Q6HPO ELLIE Oxycodone HCl 5 mg 03/13/17 13:05 03/13/17 14:32 Roxicodone - PO 5 mg Q4H PRN Administration PAIN ASSESSMENT AND PLAN: This is a 61 year old woman with a history of HIV, HCV, HTN, hyperlipidemia, anemia, asthma who presented to the ER with left hip pain after a fall. 1. Left femoral neck fracture - s/p left hip hemiarthroplasty 03/12 - Physical therapy - Lovenox for DVT prophylaxis - Plan for rehab 2. Hypokalemia - Replete potassium 3. Rhabdomyolysis - Improved 4. Acute kidney injury secondary to dehydration - Improved 5. Polycythemia secondary to dehydration - Improved 6. Dysphagia secondary to oral/esophageal candidiasis - Continue Diflucan, Nystatin swish and swallow 7. HIV - On Epivir, Ziagen 8. HTN - Continue Lopressor, Norvasc 9. Hepatitis C 10. Hyperlipidemia 11. Asthma - Stable
[2017-03-13] MEDS ORDERED: POTASSIUM CHLORIDE TABS 20 MEQ TABLET.ER (FP) PO ONE (18:23)
[2017-03-14] MEDS: oxyCODONE HCL 5 MG TABLET PO PRN ×4 (01:00→21:56)
[2017-03-14] MEDS: NYSTATIN 500,000 UNITS/5 ML SUSPENSION PO SCH ×4 (05:51→23:54)
[2017-03-14 07:49] LABS: MCH 33.7 pg (25.7-33.7); MCHC 34.5 g/dl (32.0-36.0); MEAN CELL VOLUME 97.9 fl (80-96); MEAN PLT VOLUME 9.5 fl (7.5-11.1); PLATELET COUNT 133 K/MM3 (134-434); RDW 13.9 % (11.6-15.6)
[2017-03-14 08:27] LABS: ALBUMIN 2.6 g/dl (3.4-5.0); ANION GAP 9 (8-16); CALCIUM 8.6 mg/dL (8.5-10.1); CO2 27 mmol/L (21-32); CREATININE 0.7 mg/dL (0.55-1.02); GLUCOSE,RANDOM 95 mg/dL (74-106)
[2017-03-14] MEDS ORDERED: PT OWN MED DRAWER 7, Y5N ONE ×2 (08:42→20:42)
[2017-03-14] MEDS: FLUCONAZOLE 100 MG TABLET (UD) PO SCH (09:04)
[2017-03-14] MEDS: GABAPENTIN 400 MG CAPSULE (FP) PO SCH (09:04)
[2017-03-14] MEDS: amLODIPine BESYLATE 10 MG TABLET (FP) PO SCH (09:04)
[2017-03-14] MEDS: ABACAVIR SULFATE 300 MG TABLET PO SCH ×2 (09:04→21:30)
[2017-03-14] MEDS: METOPROLOL TARTRATE 25 MG TABLET (FP) PO SCH (09:04)
[2017-03-14] MEDS: lamiVUDine 150 MG TABLET PO SCH (09:05)
--- NOTE | 2017-03-14 10:21 | PN ---
Physical Exam: SUBJECTIVE: Patient seen and examined at bed side, she is doing well ,and work with physical therapy. she still have some pain and will increase her Ocycodone 10 mg PO. She denies any N/V/D/C she denies chest pain, palpitation. OBJECTIVE: Vital Signs Period Temp Pulse Resp BP Sys/Johnson Pulse Ox Last 24 Hr 98.0 F-99.7 F 83-102 16-20 123-134/86-99 98 GENERAL: The patient is awake, alert, and fully oriented, in no acute distress. HEAD: Normal with no signs of trauma. EYES: PERRL, extraocular movements intact, sclera anicteric, conjunctiva clear. No ptosis. ENT: Ears normal, nares patent, oropharynx clear without exudates, moist mucous membranes. NECK: Trachea midline, full range of motion, supple. LUNGS: Breath sounds equal, clear to auscultation bilaterally, no wheezes, no crackles, no accessory muscle use. HEART: Regular rate and rhythm, S1, S2 without murmur, rub or gallop. ABDOMEN: Soft, nontender, nondistended, normoactive bowel sounds, no guarding, no rebound, no hepatosplenomegaly, no masses. EXTREMITIES: 2+ pulses, warm, well-perfused, no edema. NEUROLOGICAL: Cranial nerves II through XII grossly intact. Normal speech, gait not observed. PSYCH: Normal mood, normal affect. SKIN: Warm, dry, normal turgor, no rashes or lesions noted Laboratory Results - last 24 hr 03/13/17 03/13/17 03/14/17 09:45 09:45 06:42 WBC 5.7 D 7.0 RBC 3.66 3.33 L Hgb 12.3 D 11.2 Hct 35.6 D 32.6 MCV 97.2 H 97.9 H MCH 33.5 33.7 MCHC 34.4 34.5 RDW 13.9 13.9 Plt Count 159 D 133 L MPV 9.2 9.5 Sodium 139 Potassium 3.3 L Chloride 102 Carbon Dioxide 29 Anion Gap 8 BUN 11 D Creatinine 0.8 Random Glucose 177 H D Calcium 8.5 Albumin 03/14/17 06:42 WBC RBC Hgb Hct MCV MCH MCHC RDW Plt Count MPV Sodium 140 Potassium 3.7 Chloride 104 Carbon Dioxide 27 Anion Gap 9 BUN 12 Creatinine 0.7 Random Glucose 95 D Calcium 8.6 Albumin 2.6 L D Active Medications Generic Name Dose Route Start Last Admin Trade Name Freq PRN Reason Stop Dose Admin Abacavir Sulfate 300 mg 03/12/17 22:00 03/14/17 09:04 Ziagen - PO 300 mg BID ELLIE Administration Amlodipine Besylate 10 mg 03/13/17 10:00 03/14/17 09:04 Norvasc - PO 10 mg DAILY ELLIE Administration Enoxaparin Sodium 30 mg 03/13/17 14:00 03/13/17 14:35 Lovenox - SQ 30 mg DAILY@14 ELLIE Administration Fluconazole 100 mg 03/13/17 10:00 03/14/17 09:04 Diflucan - PO 100 mg DAILY ELLIE Administration Gabapentin 400 mg 03/13/17 10:00 03/14/17 09:04 Neurontin - PO 400 mg DAILY ELLIE Administration Sodium Chloride 1,000 mls @ 83 mls/hr 03/12/17 17:15 03/13/17 17:33 Normal Saline - IV Not Given ASDIR ELLIE Sodium Chloride 1,000 mls @ 75 mls/hr 03/12/17 17:52 03/13/17 18:42 Normal Saline - IV 03/14/17 22:04 Not Given ASDIR ELLIE Lamivudine 300 mg 03/13/17 10:00 03/14/17 09:05 Epivir - PO 300 mg DAILY ELLIE Administration Metoprolol Tartrate 25 mg 03/13/17 10:00 03/14/17 09:04 Lopressor - PO 25 mg DAILY ELLIE Administration Nystatin 500,000 units 03/12/17 18:00 03/14/17 05:51 Nystatin Oral Suspension - PO Not Given Q6HPO ELLIE Oxycodone HCl 10 mg 03/14/17 09:03 Roxicodone - PO Q4H PRN PAIN ASSESSMENT/PLAN: 61yo F with PMH of HIV, Hep C, HTN presents s/p fall and Left hip pain was admitted to Med-Surg for Left hip fx. # Left hip fx S/p mechanical fall s/p Surgery -s/p left hip hemiarthroplasty 03/12 - pain control: increase to Oxycodone 10 mg PO Q4H PRN -Dc Dilauded -Bed rest -Start PT -Will benefit from VINITA #Hypokalemia - Replete potassium - K improved to 3.7 today # rhabdomyolysis, Improved -due to immobility x2 days vs HAAART therapy - NS @ 83 ml/hr for hydration -CK 889 # Dysphagia due to esophagus candidasis - nystatin swish and swallow, -fluconazole po ordered - Speach and swallow eval: Limited cooperation, rare verbalizations, accepted small amounts of puree from tip of spoon and small sips of ensure.Unable to masticate at this time, Delayed swallow, labored, generated 2-3 times per bolus. White patches in oral cavity. - Briefcase Sewer consult # underweight, Sever malnutrion - Likely 2/2 HIV vs low intake due to dysphagia and poor appetite - Low BMI 16.3 -sever depletion of muscle mass - Briefcase Sewer consult #TERESA , -due to dehydration. improved -cont IVF. -avoid nephrtotoxic agents - last BUN/Cr 12/0.7 # HIV - cont. home HAART meds of Abacavir 300mg PO BID and Prezcobix 800mg/150mg PO daily (per ID) #HTN -BP 125/86 - pain management - cont. home meds of Lopressor 25mg PO daily and Amlodipine 10mg PO daily - # HEPC : Chronic # Hyperlipidimia # Asthma, Stable # FEN - Fluids: NS @ 83 ml/hr - Electrolytes: wnl, cont. to monitor - Nutrition:low NA diet # Prophylaxis - Heparin 5000U q8hr for DVT prophylaxis Wei Galicia MD PGY 1 Visit type - Emergency Visit Emergency Visit: Yes ED Registration Date: 03/08/17 Care time: The patient presented to the Emergency Department on the above date and was hospitalized for further evaluation of their emergent condition. - New Patient This patient is new to me today: No - Critical Care Critical Care patient: No
--- NOTE | 2017-03-14 12:48 | PN ---
Teaching Attending Note Name of Resident: Wei Galicia ATTENDING PHYSICIAN STATEMENT I saw and evaluated the patient. I reviewed the resident's note and discussed the case with the resident. I agree with the resident's findings and plan as documented. SUBJECTIVE: Dominga continues to complain of left thigh pain. OBJECTIVE: Vital Signs Period Temp Pulse Resp BP Sys/Johnson Pulse Ox Last 24 Hr 98.0 F-99.8 F 83-102 16-20 122-134/86-99 98 HEART: S1S2, RRR LUNGS: Clear ABDOMEN: Soft, non-tender, non-distended, normal BS EXTREMITIES: No edema Current Medications Generic Name Dose Route Start Last Admin Trade Name Freq PRN Reason Stop Dose Admin Abacavir Sulfate 300 mg 03/12/17 22:00 03/14/17 09:04 Ziagen - PO 300 mg BID ELLIE Administration Amlodipine Besylate 10 mg 03/13/17 10:00 03/14/17 09:04 Norvasc - PO 10 mg DAILY ELLIE Administration Enoxaparin Sodium 30 mg 03/13/17 14:00 03/13/17 14:35 Lovenox - SQ 30 mg DAILY@14 ELLIE Administration Fluconazole 100 mg 03/13/17 10:00 03/14/17 09:04 Diflucan - PO 100 mg DAILY ELLIE Administration Gabapentin 400 mg 03/13/17 10:00 03/14/17 09:04 Neurontin - PO 400 mg DAILY ELLIE Administration Sodium Chloride 1,000 mls @ 83 mls/hr 03/12/17 17:15 03/13/17 17:33 Normal Saline - IV Not Given ASDIR ELLIE Sodium Chloride 1,000 mls @ 75 mls/hr 03/12/17 17:52 03/13/17 18:42 Normal Saline - IV 03/14/17 22:04 Not Given ASDIR ELLIE Lamivudine 300 mg 03/13/17 10:00 03/14/17 09:05 Epivir - PO 300 mg DAILY ELLIE Administration Metoprolol Tartrate 25 mg 03/13/17 10:00 03/14/17 09:04 Lopressor - PO 25 mg DAILY ELLIE Administration Nystatin 500,000 units 03/12/17 18:00 03/14/17 12:06 Nystatin Oral Suspension - PO Not Given Q6HPO ELLIE Oxycodone HCl 10 mg 03/14/17 09:03 03/14/17 12:02 Roxicodone - PO 10 mg Q4H PRN Administration PAIN ASSESSMENT AND PLAN: This is a 61 year old woman with a history of HIV, HCV, HTN, hyperlipidemia, anemia, asthma who presented to the ER with left hip pain after a fall. 1. Left femoral neck fracture - s/p left hip hemiarthroplasty 03/12 - Continue physical therapy - Continue Neurontin, oxycodone as needed for pain - Continue Lovenox for DVT prophylaxis - Plan for rehab 2. Hypokalemia - Improved 3. Rhabdomyolysis - Improved 4. Acute kidney injury secondary to dehydration - Improved 5. Polycythemia secondary to dehydration - Improved 6. Dysphagia secondary to oral/esophageal candidiasis - Improved - Continue Diflucan, Nystatin swish and swallow 7. HIV - On Epivir, Ziagen 8. HTN - Continue Lopressor, Norvasc 9. Hepatitis C 10. Hyperlipidemia 11. Asthma - Stable
[2017-03-14] MEDS: ENOXAPARIN NA (PORCINE) 30 MG/0.3 ML DISP.SYRIN SQ SCH (14:36)
[2017-03-14] MEDS: SODIUM CHLORIDE 1,000 ML IV SCH ×2 (17:27→17:28)
[2017-03-14] MEDS: ACETAMINOPHEN 650 MG/20.3 ML ORAL SOLUTION (CUPS) PO PRN (17:27)
[2017-03-15] MEDS: NYSTATIN 500,000 UNITS/5 ML SUSPENSION PO SCH ×3 (05:57→17:30)
[2017-03-15] MEDS: oxyCODONE HCL 5 MG TABLET PO PRN ×3 (06:13→18:52)
[2017-03-15] MEDS: SODIUM CHLORIDE 1,000 ML IV SCH ×3 (06:16→17:29)
[2017-03-15] MEDS ORDERED: PT OWN MED DRAWER 7, Y5N ONE ×2 (09:37→22:02)
[2017-03-15] MEDS: amLODIPine BESYLATE 10 MG TABLET (FP) PO SCH (09:45)
[2017-03-15] MEDS: lamiVUDine 150 MG TABLET PO SCH (09:45)
[2017-03-15] MEDS: FLUCONAZOLE 100 MG TABLET (UD) PO SCH (09:45)
[2017-03-15] MEDS: METOPROLOL TARTRATE 25 MG TABLET (FP) PO SCH (09:45)
[2017-03-15] MEDS: GABAPENTIN 400 MG CAPSULE (FP) PO SCH (09:45)
[2017-03-15] MEDS: ABACAVIR SULFATE 300 MG TABLET PO SCH ×2 (09:46→22:30)
[2017-03-15] MEDS ORDERED: ALBUTEROL SO4 0.083% IH SOL 2.5 MG/3 ML VIAL.NEB. NEB PRN (10:08)
--- NOTE | 2017-03-15 10:12 | PN ---
Physical Exam: SUBJECTIVE: Patient seen and examined. She complains of left thigh pain. She refused PT yesterday. Had temp 100.4 yesterday. She appears dyspneic with chest congestion and a cough this morning. OBJECTIVE: Vital Signs Period Temp Pulse Resp BP Sys/Johnson Pulse Ox Last 24 Hr 98.2 F-100.4 F 78-98 19-20 115-149/71-78 GENERAL: The patient is awake, alert, and fully oriented. Mild dyspnea. LUNGS: Poor effort, clear to auscultation bilaterally. HEART: Regular rate and rhythm, S1, S2 without murmur, rub or gallop. ABDOMEN: Soft, nontender, nondistended, normoactive bowel sounds, no guarding, no rebound, no hepatosplenomegaly, no masses. EXTREMITIES: 2+ pulses, warm, well-perfused, no edema. Active Medications Generic Name Dose Route Start Last Admin Trade Name Freq PRN Reason Stop Dose Admin Abacavir Sulfate 300 mg 03/12/17 22:00 03/15/17 09:46 Ziagen - PO 300 mg BID ELLIE Administration Acetaminophen 650 mg 03/14/17 17:15 03/14/17 17:27 Tylenol Oral Solution - PO 650 mg Q4H PRN Administration FEVER OR PAIN Amlodipine Besylate 10 mg 03/13/17 10:00 03/15/17 09:45 Norvasc - PO 10 mg DAILY ELLIE Administration Enoxaparin Sodium 30 mg 03/13/17 14:00 03/14/17 14:36 Lovenox - SQ 30 mg DAILY@14 ELLIE Administration Fluconazole 100 mg 03/13/17 10:00 03/15/17 09:45 Diflucan - PO 100 mg DAILY ELLIE Administration Gabapentin 400 mg 03/13/17 10:00 03/15/17 09:45 Neurontin - PO 400 mg DAILY ELLIE Administration Sodium Chloride 1,000 mls @ 83 mls/hr 03/12/17 17:15 03/15/17 06:16 Normal Saline - IV 83 mls/hr ASDIR ELLIE Administration Lamivudine 300 mg 03/13/17 10:00 03/15/17 09:45 Epivir - PO 300 mg DAILY ELLIE Administration Metoprolol Tartrate 25 mg 03/13/17 10:00 03/15/17 09:45 Lopressor - PO 25 mg DAILY ELLIE Administration Nystatin 500,000 units 03/12/17 18:00 03/15/17 05:57 Nystatin Oral Suspension - PO Not Given Q6HPO [facility] Oxycodone HCl 10 mg 03/14/17 09:03 03/15/17 06:13 Roxicodone - PO 10 mg Q4H PRN Administration PAIN ASSESSMENT/PLAN: This is a 61 year old woman with a history of HIV, HCV, HTN, hyperlipidemia, anemia, asthma who presented to the ER with left hip pain after a fall. 1. Left femoral neck fracture - s/p left hip hemiarthroplasty 03/12 - Continue physical therapy - Continue Neurontin, oxycodone as needed for pain - Continue Lovenox for DVT prophylaxis - Plan for rehab 2. Dyspnea with cough, temp 100.4 - Chest x-ray - Incentive spirometer - Albuterol nebs 3. Hypokalemia - Improved 4. Rhabdomyolysis - Improved 5. Acute kidney injury secondary to dehydration - Improved 6. Polycythemia secondary to dehydration - Improved 7. Dysphagia secondary to oral/esophageal candidiasis - Improved - Continue Diflucan, Nystatin swish and swallow 8. HIV - On Epivir, Ziagen 9. HTN - Continue Lopressor, Norvasc 10. Hepatitis C 11. Hyperlipidemia 12. Asthma - Start albuterol nebs Visit type - Emergency Visit Emergency Visit: Yes ED Registration Date: 03/08/17 Care time: The patient presented to the Emergency Department on the above date and was hospitalized for further evaluation of their emergent condition. - New Patient This patient is new to me today: No - Critical Care Critical Care patient: No - Discharge Referral Referred to [facility] Med P.C.: No
[2017-03-15] MEDS: ENOXAPARIN NA (PORCINE) 30 MG/0.3 ML DISP.SYRIN SQ SCH (15:53)
[2017-03-16] MEDS: NYSTATIN 500,000 UNITS/5 ML SUSPENSION PO SCH ×5 (00:23→23:57)
[2017-03-16] MEDS: oxyCODONE HCL 5 MG TABLET PO PRN ×4 (00:30→21:13)
[2017-03-16] MEDS: SODIUM CHLORIDE 1,000 ML IV SCH ×4 (02:52→16:41)
[2017-03-16 07:52] LABS: BASOPHIL 0.5 % (0-2.0); EOSINOPHIL 5.3 % (0-4.5); MCH 33.8 pg (25.7-33.7); MCHC 34.3 g/dl (32.0-36.0); MEAN CELL VOLUME 98.7 fl (80-96); MEAN PLT VOLUME 9.2 fl (7.5-11.1); NEUTROPHILS 54.9 % (42.8-82.8); PLATELET COUNT 135 K/MM3 (134-434); RDW 14.5 % (11.6-15.6); WHITE BLOOD COUNT 4.9 K/mm3 (4.0-10.0)
[2017-03-16 08:20] LABS: ANION GAP 7 (8-16); CALCIUM 8.2 mg/dL (8.5-10.1); CO2 27 mmol/L (21-32); CREATININE 0.7 mg/dL (0.55-1.02); GLUCOSE,RANDOM 79 mg/dL (74-106)
[2017-03-16] MEDS ORDERED: PT OWN MED DRAWER 7, Y5N ONE ×2 (09:10→20:28)
[2017-03-16] MEDS: amLODIPine BESYLATE 10 MG TABLET (FP) PO SCH (09:17)
[2017-03-16] MEDS: lamiVUDine 150 MG TABLET PO SCH (09:17)
[2017-03-16] MEDS: METOPROLOL TARTRATE 25 MG TABLET (FP) PO SCH (09:17)
[2017-03-16] MEDS: FLUCONAZOLE 100 MG TABLET (UD) PO SCH (09:17)
[2017-03-16] MEDS: GABAPENTIN 400 MG CAPSULE (FP) PO SCH (09:17)
[2017-03-16] MEDS: ABACAVIR SULFATE 300 MG TABLET PO SCH ×2 (09:18→21:12)
--- NOTE | 2017-03-16 10:05 | PN ---
Physical Exam: SUBJECTIVE: Patient seen and examined OBJECTIVE: Vital Signs Period Temp Pulse Resp BP Sys/Johnson Pulse Ox Last 24 Hr 98.7 F-99.2 F 78-86 20-20 94-116/59-75 99 GENERAL: The patient is awake, alert, and fully oriented. Mild dyspnea. LUNGS: Poor effort, clear to auscultation bilaterally. HEART: Regular rate and rhythm, S1, S2 without murmur, rub or gallop. ABDOMEN: Soft, nontender, nondistended, normoactive bowel sounds, no guarding, no rebound, no hepatosplenomegaly, no masses. EXTREMITIES: 2+ pulses, warm, well-perfused, no edema. Laboratory Results - last 24 hr 03/16/17 03/16/17 06:00 06:00 WBC 4.9 RBC 2.79 L Hgb 9.4 L D Hct 27.5 L D MCV 98.7 H MCH 33.8 H MCHC 34.3 RDW 14.5 Plt Count 135 MPV 9.2 Neutrophils % 54.9 Lymphocytes % 28.4 D Monocytes % 10.9 H Eosinophils % 5.3 H D Basophils % 0.5 Sodium 139 Potassium 3.9 Chloride 105 Carbon Dioxide 27 Anion Gap 7 L BUN 15 D Creatinine 0.7 Random Glucose 79 Calcium 8.2 L Active Medications Generic Name Dose Route Start Last Admin Trade Name Freq PRN Reason Stop Dose Admin Abacavir Sulfate 300 mg 03/12/17 22:00 03/16/17 09:18 Ziagen - PO 300 mg BID ELLIE Administration Acetaminophen 650 mg 03/14/17 17:15 03/14/17 17:27 Tylenol Oral Solution - PO 650 mg Q4H PRN Administration FEVER OR PAIN Albuterol Sulfate 1 amp 03/15/17 10:08 Ventolin 0.083% Nebulizer Soln - NEB Q4H PRN SHORT OF BREATH/WHEEZING Amlodipine Besylate 10 mg 03/13/17 10:00 03/16/17 09:17 Norvasc - PO 10 mg DAILY ELLIE Administration Enoxaparin Sodium 30 mg 03/13/17 14:00 03/15/17 15:53 Lovenox - SQ 30 mg DAILY@14 ELLIE Administration Fluconazole 100 mg 03/13/17 10:00 03/16/17 09:17 Diflucan - PO 100 mg DAILY ELLIE Administration Gabapentin 400 mg 03/13/17 10:00 03/16/17 09:17 Neurontin - PO 400 mg DAILY ELLIE Administration Sodium Chloride 1,000 mls @ 83 mls/hr 03/12/17 17:15 03/16/17 02:52 Normal Saline - IV 83 mls/hr ASDIR ELLIE Administration Lamivudine 300 mg 03/13/17 10:00 03/16/17 09:17 Epivir - PO 300 mg DAILY ELLIE Administration Metoprolol Tartrate 25 mg 03/13/17 10:00 03/16/17 09:17 Lopressor - PO 25 mg DAILY ELLIE Administration Nystatin 500,000 units 03/12/17 18:00 03/16/17 06:12 Nystatin Oral Suspension - PO Not Given Q6HPO ELLIE Oxycodone HCl 10 mg 03/14/17 09:03 03/16/17 09:18 Roxicodone - PO 10 mg Q4H PRN Administration PAIN ASSESSMENT/PLAN: This is a 61 year old woman with a history of HIV, HCV, HTN, hyperlipidemia, anemia, asthma who presented to the ER with left hip pain after a fall. 1. Left femoral neck fracture - s/p left hip hemiarthroplasty 03/12 - Continue physical therapy - refused last 2 days - Continue Neurontin, oxycodone as needed for pain - Continue Lovenox for DVT prophylaxis - Plan for rehab 2. Dyspnea with cough, temp 100.4 - Improved - Chest x-ray showed atelectasis at left base - Continue incentive spirometer, albuterol nebs as needed 3. Hypokalemia - Improved 4. Rhabdomyolysis - Improved 5. Acute kidney injury secondary to dehydration - Improved 6. Polycythemia secondary to dehydration - Improved 7. Dysphagia secondary to oral/esophageal candidiasis - Dysphagia improved - Continue Diflucan, Nystatin swish and swallow 8. HIV - On Epivir, Ziagen 9. HTN - Continue Lopressor, Norvasc 10. Hepatitis C 11. Hyperlipidemia 12. Asthma - Continue albuterol nebs as needed 13. Severe malnutrition - Continue Ensure Enlive, Magic Cup - Nutrition follow up 14. Anemia - No evidence of bleeding - Monitor hemoglobin Visit type - Emergency Visit Emergency Visit: Yes ED Registration Date: 03/08/17 Care time: The patient presented to the Emergency Department on the above date and was hospitalized for further evaluation of their emergent condition. - New Patient This patient is new to me today: No - Critical Care Critical Care patient: No - Discharge Referral Referred to [facility] Med P.C.: No
[2017-03-16] MEDS: ENOXAPARIN NA (PORCINE) 30 MG/0.3 ML DISP.SYRIN SQ SCH (13:11)
--- NOTE | 2017-03-16 18:19 | PN ---
Progress Note (short form) - Note Progress Note: Pt seen and examined. He is on POD #4 s/p left hip rima. Doing well. + c/o mild-mod pain in the hip with weight bearing, but she states she did ambulate with P.T. AVSS H/H low to 9.4/27.5 LLE NVI Good ROM Overall doing well, con't P.T., likely DC tomorrow.
[2017-03-17] MEDS: NYSTATIN 500,000 UNITS/5 ML SUSPENSION PO SCH ×2 (05:41→12:29)
[2017-03-17] MEDS: oxyCODONE HCL 5 MG TABLET PO PRN (05:45)
[2017-03-17 08:50] LABS: MCH 33.6 pg (25.7-33.7); MCHC 33.7 g/dl (32.0-36.0); MEAN CELL VOLUME 99.6 fl (80-96); MEAN PLT VOLUME 8.4 fl (7.5-11.1); PLATELET COUNT 191 K/MM3 (134-434); RDW 14.6 % (11.6-15.6); WHITE BLOOD COUNT 4.7 K/mm3 (4.0-10.0)
[2017-03-17] MEDS ORDERED: PT OWN MED DRAWER 7, Y5N ONE (10:22)
[2017-03-17] MEDS: amLODIPine BESYLATE 10 MG TABLET (FP) PO SCH (10:24)
[2017-03-17] MEDS: lamiVUDine 150 MG TABLET PO SCH (10:24)
[2017-03-17] MEDS: ABACAVIR SULFATE 300 MG TABLET PO SCH (10:24)
[2017-03-17] MEDS: METOPROLOL TARTRATE 25 MG TABLET (FP) PO SCH (10:24)
[2017-03-17] MEDS: FLUCONAZOLE 100 MG TABLET (UD) PO SCH (10:24)
[2017-03-17] MEDS: GABAPENTIN 400 MG CAPSULE (FP) PO SCH (10:24)
[2017-03-17] MEDS: ACETAMINOPHEN 650 MG/20.3 ML ORAL SOLUTION (CUPS) PO PRN ×2 (10:58→14:49)
--- NOTE | 2017-03-17 12:59 | PATH ---
Surgical Pathology Report Patient Name: KAM HARRIS [facility]. Rec. #: [id number] /Age/Gender: 1955 (Age: 61) / F Account: [id number] Location: [address] [place] [address]/[facility] Taken: 03/12/2017 Received: 03/13/2017 Reported: 03/17/2017 Physicians: Enio Bowman M.D. Specimen(s) Received LEFT FEMORAL HEAD Clinical History Left hip fracture Final Diagnosis FEMORAL HEAD, LEFT, HIP ARTHROPLASTY: BONE WITH FOCAL NECROSIS AND HEMORRHAGE CONSISTENT WITH FRACTURE SITE. Electronically Signed Roderick De Jesus M.D. Gross Description Received in formalin, labeled "left femoral head" is a 4.3 x 4.3 x 4.0 cm femoral head with no femoral neck attached. The margin of resection is red-brown, jagged and hemorrhagic. No areas of eburnation are identified. The articular surface is lopez-yellow and focally granular. The underlying trabecular bone is lopez-yellow, heterogeneous and focally hemorrhagic. A software sales representative section is submitted in one cassette, following decalcification. /03/13/2017 [facility]03/13/2017
--- NOTE | 2017-03-17 14:40 | PN ---
Progress Note (short form) - Note Progress Note: AVSS COMFORTABLE CALF SOFT AND NT NVI BANDAGES DRY AND INTACT IMP: DOING WELL pLAN: DC TO SNF WHEN MEDICALLY OK
[2017-03-17] MEDS: ENOXAPARIN NA (PORCINE) 30 MG/0.3 ML DISP.SYRIN SQ SCH (14:49)
--- NOTE | 2017-03-17 14:54 | PN ---
Teaching Attending Note Name of Resident: Wei Galicia ATTENDING PHYSICIAN STATEMENT I saw and evaluated the patient. I reviewed the resident's note and discussed the case with the resident. I agree with the resident's findings and plan as documented. SUBJECTIVE:refusing to speak to me. requests that i leave. OBJECTIVE: Last Vital Signs Temp Pulse Resp BP Pulse Ox 97.9 F 72 18 116/78 98 03/17/17 08:00 03/17/17 08:00 03/17/17 08:00 03/17/17 08:00 03/17/17 08:49 refused physical exam ASSESSMENT AND PLAN: 61 year old woman with a history of HIV, HCV, HTN, hyperlipidemia, anemia, asthma who presented to the ER with left hip pain after a fall. 1. Left femoral neck fracture- s/p left hip hemiarthroplasty 03/12. been refusing physical therapy. cont lovenox for DVT ppx. plan for VINITA placement today. 2. Dyspnea with cough- unsure if resoled. however afebrile. no need for abx. 3. Hypokalemia- resolved 4. Rhabdomyolysis- resolved 5. Acute kidney injury secondary to dehydration-resolved 6. Polycythemia secondary to dehydration-resolved 7. Dysphagia secondary to oral/esophageal candidiasis- cont fluconazole for 14 day course. completed 8 days here. cont Nystatin swish and swallow 8. HIV- On Epivir, Ziagen 9. HTN- Continue Lopressor, Norvasc 10. Hepatitis C 11. Hyperlipidemia 12. Asthma- Continue albuterol nebs as needed 13. Severe malnutrition- Continue Ensure Enlive, Magic Cup 14. Anemia- No evidence of bleeding 15. medically optimized for discharge. awaiting bed availability at [facility].
--- NOTE | 2017-03-17 16:12 | DS ---
Physical Exam: SUBJECTIVE: Patient seen and examined at bed side . Post op day 5 . she denies nay fever, chills D/C/N/V. she is doing well in general . improving and will benefit form subacute rehab. OBJECTIVE: Vital Signs Period Temp Pulse Resp BP Sys/Johnson Pulse Ox Last 24 Hr 97.9 F-99.3 F 72-90 18-20 97-132/62-88 98-98 PHYSICAL EXAM GENERAL: The patient is awake, alert, and fully oriented. Mild dyspnea. LUNGS: Poor effort, clear to auscultation bilaterally. HEART: Regular rate and rhythm, S1, S2 without murmur, rub or gallop. ABDOMEN: Soft, nontender, nondistended, normoactive bowel sounds, no guarding, no rebound, no hepatosplenomegaly, no masses. EXTREMITIES: 2+ pulses, warm, well-perfused, no edema. LABS Laboratory Results - last 24 hr 03/17/17 07:30 WBC 4.7 RBC 3.00 L Hgb 10.1 L Hct 29.9 L MCV 99.6 H MCH 33.6 MCHC 33.7 RDW 14.6 Plt Count 191 D MPV 8.4 HOSPITAL COURSE: Date of Admission:03/08/17 Date of Discharge: 03/17/17 61 year old woman with a history of HIV, HCV, HTN, hyperlipidemia, anemia, asthma who presented to the ER with left hip pain after a fall. imaging showed left hip fracture and orthopedics operate on her on 03/12 ( hemiarthroplasty). Patient tolerated procedure well and pain controlled on oral meds. Evaluated by physical therapy and she will benifit from sub acute rehab. She will need to continue anticoagulation with lovenox for 30 days to prevent clots. She had hypokalemia and was replenished and resolved. She had Rhabdomyolysis , acute kidney injury and polycythemia which was resolved with administration of IV fluids. Patient had dysphagia secondary to esophageal candidacies starting on Fluconazole oral and Nystaine swish ans swallow which she will continue to another 10 days (total 14 days). She will continue her HIV meds and follow up with infectious disease and for Hep c too. Her blood pressure medicine were adjusted to Lopressor 25 mg PO daily and Amlodipine 10 mg po daily . She also has sever malnutrition secondary to HIV or low appetite and she needs to continue taking ensure and follow up with telecom field technician. She had also Asthma which was stable on her home meds. and she had anemia without evidence of bleeding. patient is medically stable for discharge to rehab facility. Minutes to complete discharge: 40 Discharge Summary Reason For Visit: RHABDOMYOLYSIS Current Active Problems TERESA (acute kidney injury) (Acute) Closed left hip fracture (Acute) Esophageal candidiasis (Acute) Rhabdomyolysis (Acute) Severe malnutrition (Acute) Condition: Stable - Instructions Diet, Activity, Other Instructions: Please follow up with the orthopedics within one week. Please follow up with your Primary care physician within one week Take your medicine as prescribed continue taking Lovenox 40 mg for the next 30 days to prevent from developing a blood clot continue using Nystatin Swish and swallow and Fluconazole for the next 7 days . Follow up with you infectious disease doctor for your HIV and Hepatitis C Please follow up with a telecom field technician for your sever malnutrition and low BMI 16.1 if you have a fever, chills or your symptoms worsen please return to ED. or call your primary care physician. Referrals: Enio Bowman MD [Staff Physician] - Disposition: CARE HOME FACILITY - Home Medications Comprehensive Discharge Medication List: Ambulatory Orders Abacavir Sulfate [Abacavir] 300 mg PO BID #60 tablet 12/23/16 Darunavir/Cobicistat [Prezcobix 800 mg-150 mg Tablet] 1 each PO DAILY #30 tablet 12/23/16 Gabapentin 400 mg PO DAILY #30 capsule 12/23/16 Lamivudine 300 mg PO DAILY #30 tablet 12/23/16 Metoprolol Tartrate [Lopressor] 25 mg PO DAILY #30 tablet 12/23/16 Multivitamin [Poly-Vitamin] 1 each PO DAILY #30 tab.chew 12/23/16 Amlodipine Besylate 10 mg PO DAILY #30 tablet 01/06/17 Lactose-Reduced Food [Ensure Original] 237 ml PO TID #90 liquid 02/12/17 Enoxaparin [Lovenox -] 30 mg SQ DAILY@14 #30 mg 03/17/17 Fluconazole [Diflucan -] 100 mg PO DAILY #10 tablet 03/17/17 Lamivudine [Epivir -] 300 mg PO DAILY tablet 03/17/17 Nystatin Oral Suspension - [Nystatin Oral Susp 776976 Units/5 ML -] 500,000 units PO Q6HPO #10 unit 03/17/17 Oxycodone HCl [Roxicodone -] 10 mg PO Q4H PRN #30 tablet MDD 6 03/17/17 This patient is new to me today: No Emergency Visit: Yes ED Registration Date: 03/08/17 Care time: The patient presented to the Emergency Department on the above date and was hospitalized for further evaluation of their emergent condition. Critical Care patient: No - Discharge Referral Referred to [facility] No
[2017-03-17 16:16] VITALS: BP 106/78; PULSE 85; TEMP 98.4
== END 2017-03-17 16:53 | DRG 301 ==
LOC: JER 16:35 → JERBED 21:35 → UNDOADMIN 21:57 → J6S 23:23
PROVIDERS: ADMIT Internal Medicine; ATTEND Internal Medicine
PROC: 0SRS0JA Replacement of Left Hip Joint, Femoral Surface with Synthetic Substitute, Uncemented, Open Approach (ICD-10-PCS; principal; 2017-03-12 15:00)
DX: S72.002A Fracture of unspecified part of neck of left femur, initial encounter for closed fracture (principal); E43 Unspecified severe protein-calorie malnutrition; B20 Human immunodeficiency virus [HIV] disease; N17.9 Acute kidney failure, unspecified; M62.82 Rhabdomyolysis; B37.0 Candidal stomatitis; R64 Cachexia; B37.81 Candidal esophagitis; D75.1 Secondary polycythemia; R13.10 Dysphagia, unspecified; J44.9 Chronic obstructive pulmonary disease, unspecified; I10 Essential (primary) hypertension; Z86.73 Personal history of transient ischemic attack (TIA), and cerebral infarction without residual deficits; E87.6 Hypokalemia; B19.20 Unspecified viral hepatitis C without hepatic coma; E86.0 Dehydration; Z68.1 Body mass index [BMI] 19.9 or less, adult; F17.210 Nicotine dependence, cigarettes, uncomplicated; D64.9 Anemia, unspecified; W19.XXXA Unspecified fall, initial encounter; Y93.89 Activity, other specified; Y92.091 Bathroom in other non-institutional residence as the place of occurrence of the external cause; Y99.8 Other external cause status; Z88.0 Allergy status to penicillin
CPT/HCPCS: 36415; 70450-TC; 71010-TC; 73523-TC; 80048; 80053; 81003; 81015; 82040; 82553; 84484; 85025; 85027; 85610; 86850; 86900; 86901; 88305-TC; 88311-TC; 93005; 93010; 94640; 94760; 97116-GP; 97162-GP; 99285-25; J1644

== ENCOUNTER 2018-05-24 22:19 | Observation (INO) | payer OTHER ==
--- NOTE | 2018-05-24 22:56 | PDOC ---
Attending Attestation - Resident Resident Name: Roderick Gould - ED Attending Attestation I have performed the following: I have examined & evaluated the patient, The case was reviewed & discussed with the resident, I agree w/resident's findings & plan, Exceptions are as noted - HPI HPI: 05/24/18 23:00 63 yo F h/o HIV, COPD, HTN, HLD, Hep C Presents to the ER with nausea and vomiting She is a difficult historian as she does not want to answer questions She had a single episode of emesis She is thought to have an unwitnessed fall (she was found sitting on the floor, pt denies falling, she denies LOC or head trauma) ?She was found to be hypoxic (per [facility], she was found to be hypoxic at 86-89%. she was given albuterol and oxygen). Currently, she denies pain, but endorses feeling feverish and nausea. - Physicial Exam PE: 05/25/18 01:30 GENERAL: The patient is in no acute distress. HEAD: Normal with no signs of trauma. EYES: PERRLA, EOMI, sclera anicteric, conjunctiva clear. ENT: Ears normal, nares patent, oropharynx clear without exudates. Moist mucous membranes. NECK: Normal range of motion, supple without lymphadenopathy, JVD, or masses. LUNGS: Breath sounds equal, clear to auscultation bilaterally. No wheezes, and no crackles. HEART:Regular rate and rhythm, normal S1 and S2 without murmur, rub or gallop. ABDOMEN: Soft, nontender, normoactive bowel sounds. No guarding, no rebound. No masses palpable. EXTREMITIES: Normal range of motion, no edema. No clubbing or cyanosis. No erythema, or tenderness. NEUROLOGICAL: Cranial nerves II through XII grossly intact. Normal speech. No focal neurological deficits. MUSCULOSKELETAL: Back non-tender to palpation, no CVA tenderness SKIN: Warm, Dry, normal turgor, no rashes or lesions noted. - Medical Decision Making 05/25/18 01:30 DD broad and includes Pancreatitis, gastritis, SBO, Head trauma --> ICH, Increased ICP --> vomiting ACS Will do: Labs CT head CT abd and pelvis IVF Antiemetics EKG Re assess 05/25/18 03:27 Laboratory Tests 05/25/18 05/25/18 01:18 01:18 WBC 6.7 Hgb 14.5 Hct 42.5 Plt Count 162 Sodium 143 Potassium 5.0 Chloride 107 Carbon Dioxide 29 BUN 30 H Creatinine 1.3 Random Glucose 98 AST 38 H ALT 31 Creatine Kinase 431 H Creatine Kinase Index 1.5 CK-MB (CK-2) 6.6 H Troponin I < 0.02 Total Amylase 112 Lipase 123 05/25/18 05:06 EKG: SR rate of 84 bpm, axis nml, intervals nml, no st elevation or depression Repeat EKG: V paced, (+) PVC Will place on observation
[2018-05-24] MEDS ORDERED: ONDANSETRON 4 MG/2 ML VIAL IVPUSH ONE (23:09)
[2018-05-24] MEDS ORDERED: SODIUM CHLORIDE 500 ML IV STA (23:09)
[2018-05-24] MEDS ORDERED: ONDANSETRON 4 MG/2 ML VIAL ONE (23:43)
--- NOTE | 2018-05-24 23:51 | PDOC ---
History of Present Illness - General Chief Complaint: Injury Stated Complaint: FALL, VOMIT Time Seen by Provider: 05/24/18 22:38 History Source: Patient Exam Limitations: No Limitations - History of Present Illness Initial Comments: 05/24/18 23:25 63 yo F with a hx of hepatitis C, HIV, COPD, HTN, and HLD presents to the emergency department from [facility] s/p 1x emesis event without blood, hypoxemia, and suspected unwitnessed fall. It was difficult to speak to the patient as she was agitated and was giving short statements. She stated that she did not fall and had 1x vomiting episode at [facility]. She denies LOC or head trauma. Per [facility], they stated she had hypoxia in 86-89% and gave her albuterol and oxygen. They found her on the floor sitting at 6pm, but did not witness a fall. At approximately 9pm, they documented her having 1x episode of vomiting. The patient denies current pain, but endorses feeling feverish and nausea. While speaking to the patient, she had 2x emesis events without blood. Denies the following: headaches, one sided weakness, chest pain, SOB, abdominal pain, dysuria, hematuria, hematochezia, melena, diarrhea, constipation, and leg pain/swelling. 05/25/18 00:29 Past History - Past Medical History Allergies/Adverse Reactions: Allergies Allergy/AdvReac Type Severity Reaction Status Date / Time Penicillins AdvReac Severe Verified 05/24/18 23:07 COD FISH Allergy Uncoded 05/24/18 23:07 Home Medications: Ambulatory Orders Gabapentin 400 mg PO DAILY #30 capsule 12/23/16 Abacavir Sulfate [Abacavir] 300 mg PO BID #60 tablet 07/02/17 Amlodipine Besylate 10 mg PO DAILY #30 tablet 07/02/17 Darunavir/Cobicistat [Prezcobix 800 mg-150 mg Tablet] 1 each PO DAILY #30 tablet 07/02/17 Lactose-Reduced Food [Ensure Original] 237 ml PO TID #90 liquid 07/02/17 Lamivudine 300 mg PO DAILY #30 tablet 07/02/17 Metoprolol Tartrate [Lopressor] 25 mg PO DAILY #30 tablet 07/02/17 Multivitamin [Poly-Vitamin] 1 each PO DAILY #30 tab.chew 07/02/17 Collagenase Clostridium Hist. [Santyl] 1 applic TP DAILY #90 oint...g. 09/28/17 Anemia: Yes Asthma: Yes Cancer: No Cardiac Disorders: No CVA: No COPD: No CHF: No Dementia: No Diabetes: No GI Disorders: No Disorders: No HTN: Yes Hypercholesterolemia: Yes Liver Disease: No Seizures: No Thyroid Disease: No - Surgical History Abdominal Surgery: No Appendectomy: No Cardiac Surgery: No Cholecystectomy: No Lung Surgery: No Neurologic Surgery: No Orthopedic Surgery: Yes (L HIP) - Immunization History Td Vaccination: Yes Immunization Up to Date: Yes - Suicide/Smoking/Psychosocial Hx Smoking History: Current some day smoker Have you smoked in the past 12 months: Yes Number of Cigarettes Smoked Daily: 5 If you are a former smoker, when did you quit?: Several months ago. Cigars Per Day: 0 Information on smoking cessation initiated: No 'Breaking Loose' booklet given: 09/07/14 Hx Alcohol Use: No Drug/Substance Use Hx: No Substance Use Type: Cocaine Hx Substance Use Treatment: Yes (in the past) Review of Systems - Review of Systems Able to Perform ROS?: Yes Constitutional: Yes: Fever. No: Chills, Diaphoresis HEENTM: No: Recent change in vision, Throat Pain, Mouth Pain Respiratory: No: Shortness of Breath Cardiac (ROS): No: Lightheadedness, Palpitations, Syncope ABD/GI: No: Constipated, Rectal Bleeding, Vomiting, Tarry Stools : No: Burning, Dysuria, Hematuria Musculoskeletal: No: Back Pain Integumentary: No: Rash Neurological: No: Headache Hematologic/Lymphatic: No: Anemia *Physical Exam - Vital Signs Last Vital Signs Temp Pulse Resp BP Pulse Ox 97.1 F L 78 20 102/68 98 05/24/18 22:20 05/24/18 22:20 05/24/18 22:20 05/24/18 22:20 05/24/18 22:20 - Physical Exam General Appearance: Yes: Thin. No: Appropriately Dressed, Apparent Distress HEENT: positive: EOMI, LINDA Respiratory/Chest: positive: Lungs Clear, Normal Breath Sounds Cardiovascular: positive: Regular Rhythm, Regular Rate, S1, S2. negative: Systolic Murmur Gastrointestinal/Abdominal: positive: Normal Bowel Sounds. negative: Tender, Protuberent, Mass Musculoskeletal: negative: CVA Tenderness Extremity: positive: Normal Capillary Refill, Normal Inspection, Normal Range of Motion. negative: Tender Integumentary: positive: Normal Color, Dry, Warm Neurologic: positive: Alert ED Treatment Course - LABORATORY CBC & Chemistry Diagram: 05/25/18 01:18 05/25/18 01:18 - RADIOLOGY Radiology Studies Ordered: Category Date Time Status ABDOMEN & PELVIS CT WITH CONTR [CT] Stat CT Scan 05/24/18 23:[address] WITHOUT CONTRAST [CT] Stat CT Scan 05/24/18 23:24 Ordered CHEST X-RAY PORTABLE* [RAD] Stat Radiology 05/24/18 23:09 Ordered Medical Decision Making - Medical Decision Making 05/25/18 00:33 63 yo F with a hx of hepatitis C, HIV, COPD, HTN, and HLD presents to the emergency department from [facility] s/p 1x emesis event without blood, hypoxemia, and suspected unwitnessed fall Initial vitals: Initial Vital Signs Temp Pulse Resp BP Pulse Ox 97.1 F L 78 20 102/68 98 05/24/18 22:20 05/24/18 22:20 05/24/18 22:20 05/24/18 22:20 05/24/18 22:20 Work up: given patients presenting symptoms, ddx includes fall possibly 2/2 mechanical vs cardiogenic vs metabolic vs neurogenic. nausea and vomiting ddx includes ACS , gastroenteritis vs SBO vs colitis vs gastritis vs COPD exacerbation vs PNA head ct, abd/pelvis with IV contrast/oral contrast, cbc, cmp, ekg, cxr, troponin , UA Signed out to Dr. Michaud *DC/Admit/Observation/Transfer Diagnosis at time of Disposition: Syncope Qualifiers: Syncope type: unspecified Qualified Code(s): R55 - Syncope and collapse - Discharge Dispostion Condition at time of disposition: Unchanged/Unknown - Referrals - Patient Instructions - Post Discharge Activity
[2018-05-25 01:32] LABS: BASO % 0.4 % (0-2.0); HEMATOCRIT 42.5 % (32.4-45.2); HEMOGLOBIN 14.5 GM/dL (10.7-15.3); MCH 33.7 pg (25.7-33.7); MCHC 34.2 g/dl (32.0-36.0); MEAN CELL VOLUME 98.6 fl (80-96); MEAN PLT VOLUME 9.1 fl (7.5-11.1); NEUT % 76.6 % (42.8-82.8); PLATELET COUNT 162 K/MM3 (134-434); RBC 4.31 M/mm3 (3.60-5.2); RDW 14.9 % (11.6-15.6); WHITE BLOOD COUNT 6.7 K/mm3 (4.0-10.0)
[2018-05-25 02:02] LABS: ALK PHOS 124 U/L (45-117); AMYLASE 112 U/L (25-115); ANION GAP 8 MMOL/L (8-16); BILIRUBIN,TOTAL 0.3 mg/dL (0.2-1); BLOOD UREA NITROGEN 30 mg/dL (7-18); CALCIUM 9.3 mg/dL (8.5-10.1); CHLORIDE 107 mmol/L (98-107); CO2 29 mmol/L (21-32); CREATININE 1.3 mg/dL (0.55-1.3); GLUCOSE,RANDOM 98 mg/dL (74-106); LIPASE 123 U/L (73-393); SGOT/AST 38 U/L (15-37); SGPT/ALT 31 U/L (13-61); SODIUM 143 mmol/L (136-145)
--- NOTE | 2018-05-25 06:59 | PDOC ---
*Physical Exam - Vital Signs Last Vital Signs Temp Pulse Resp BP Pulse Ox 97.1 F L 78 20 102/68 98 05/24/18 22:20 05/24/18 22:20 05/24/18 22:59 05/24/18 22:20 05/24/18 23:09 ED Treatment Course - LABORATORY CBC & Chemistry Diagram: 05/25/18 01:18 05/25/18 01:18 - ADDITIONAL ORDERS Additional order review: Laboratory Results 05/25/18 01:18 Sodium 143 Potassium 5.0 Chloride 107 Carbon Dioxide 29 Anion Gap 8 BUN 30 H Creatinine 1.3 Creat Clearance w eGFR 41.24 Random Glucose 98 Calcium 9.3 Total Bilirubin 0.3 AST 38 H ALT 31 Alkaline Phosphatase 124 H Creatine Kinase 431 H Creatine Kinase Index 1.5 CK-MB (CK-2) 6.6 H Troponin I < 0.02 Total Protein 9.0 H Albumin 4.0 Total Amylase 112 Lipase 123 05/25/18 01:18 RBC 4.31 MCV 98.6 H MCHC 34.2 RDW 14.9 MPV 9.1 Neutrophils % 76.6 D Lymphocytes % 19.0 D Monocytes % 4.0 Eosinophils % 0.0 D Basophils % 0.4 - Medications Given in the ED: ED Medications Discontinued Medications Generic Name Dose Route Start Last Admin Trade Name Freq PRN Reason Stop Dose Admin Sodium Chloride 500 mls @ 500 mls/hr 05/24/18 23:09 05/24/18 23:44 Normal Saline - IV 05/25/18 00:08 500 mls/hr ASDIR STA Administration Ondansetron HCl 4 mg 05/24/18 23:09 05/24/18 23:44 Zofran Injection IVPUSH 05/24/18 23:10 4 mg ONCE ONE Administration Medical Decision Making - Medical Decision Making 05/25/18 07:10 Patient has syncope from unknown source with unremarkable Ct scans but with elevated CK, CK-MB and alk phos. Will obs to telemetry Patient signed out to Dr. Sanchez. *DC/Admit/Observation/Transfer Diagnosis at time of Disposition: Syncope - Discharge Dispostion Disposition: HOME Condition at time of disposition: Unchanged/Unknown Decision to Admit order: No - Referrals - Patient Instructions - Post Discharge Activity
--- NOTE | 2018-05-25 08:25 | PDOC ---
*Physical Exam - Vital Signs Last Vital Signs Temp Pulse Resp BP Pulse Ox 97.1 F L 78 20 102/68 98 05/24/18 22:20 05/24/18 22:20 05/24/18 22:59 05/24/18 22:20 05/24/18 23:09 ED Treatment Course - LABORATORY CBC & Chemistry Diagram: 05/25/18 01:18 05/25/18 01:18 - ADDITIONAL ORDERS Additional order review: Laboratory Results 05/25/18 01:18 Sodium 143 Potassium 5.0 Chloride 107 Carbon Dioxide 29 Anion Gap 8 BUN 30 H Creatinine 1.3 Creat Clearance w eGFR 41.24 Random Glucose 98 Calcium 9.3 Total Bilirubin 0.3 AST 38 H ALT 31 Alkaline Phosphatase 124 H Creatine Kinase 431 H Creatine Kinase Index 1.5 CK-MB (CK-2) 6.6 H Troponin I < 0.02 Total Protein 9.0 H Albumin 4.0 Total Amylase 112 Lipase 123 05/25/18 01:18 RBC 4.31 MCV 98.6 H MCHC 34.2 RDW 14.9 MPV 9.1 Neutrophils % 76.6 D Lymphocytes % 19.0 D Monocytes % 4.0 Eosinophils % 0.0 D Basophils % 0.4 - Medications Given in the ED: ED Medications Discontinued Medications Generic Name Dose Route Start Last Admin Trade Name Freq PRN Reason Stop Dose Admin Sodium Chloride 500 mls @ 500 mls/hr 05/24/18 23:09 05/24/18 23:44 Normal Saline - IV 05/25/18 00:08 500 mls/hr ASDIR STA Administration Ondansetron HCl 4 mg 05/24/18 23:09 05/24/18 23:44 Zofran Injection IVPUSH 05/24/18 23:10 4 mg ONCE ONE Administration Medical Decision Making - Medical Decision Making Patient with no acute complaints; requested meal and given sandwich. Discussed case with Dr. Hickman who accepted patient for admission. 05/25/18 13:08 *DC/Admit/Observation/Transfer Diagnosis at time of Disposition: Syncope - Discharge Dispostion Condition at time of disposition: Unchanged/Unknown Decision to Admit order: Yes - Referrals - Patient Instructions - Post Discharge Activity
--- NOTE | 2018-05-25 11:41 | HP ---
Admitting History and Physical - Primary Care Physician PCP: Yael Coulter - Admission Chief Complaint: s/p fall History of Present Illness: ER HISTORY 63 yo F h/o HIV, COPD, HTN, HLD, Hep C Presents to the ER with nausea and vomiting She is a difficult historian as she does not want to answer questions She had a single episode of emesis She is thought to have an unwitnessed fall (she was found sitting on the floor, pt denies falling, she denies LOC or head trauma) ?She was found to be hypoxic (per [facility], she was found to be hypoxic at 86-89%. she was given albuterol and oxygen). Currently, she denies pain, but endorses feeling feverish and nausea. Pt seen by me in the ER Pt is at baseline mentation- denies SOB, has cough Does not remember falling- she was asleep in bed. Mostly wheelchair bound Denies chest pain History Source: Patient Limitations to Obtaining History: Poor Historian - Past Medical History DANDY TENDER: Yes: Dementia Cardiovascular: Yes: HTN, Hyperlipdemia Hepatobiliary: Yes: Hepatitis B Infectious Disease: Yes: HIV - Smoking History Smoking history: Current some day smoker Have you smoked in the past 12 months: Yes Aproximately how many cigarettes per day: 5 If you are a former smoker, when did you quit?: Several months ago. - Alcohol/Substance Use Hx Alcohol Use: No Home Medications - Allergies Allergies/Adverse Reactions: Allergies Allergy/AdvReac Type Severity Reaction Status Date / Time Penicillins AdvReac Severe Verified 05/24/18 23:07 COD FISH Allergy Uncoded 05/24/18 23:07 - Home Medications Home Medications: Ambulatory Orders Gabapentin 400 mg PO DAILY #30 capsule 12/23/16 Abacavir Sulfate [Abacavir] 300 mg PO BID #60 tablet 07/02/17 Amlodipine Besylate 10 mg PO DAILY #30 tablet 07/02/17 Darunavir/Cobicistat [Prezcobix 800 mg-150 mg Tablet] 1 each PO DAILY #30 tablet 07/02/17 Lactose-Reduced Food [Ensure Original] 237 ml PO TID #90 liquid 07/02/17 Lamivudine 300 mg PO DAILY #30 tablet 07/02/17 Metoprolol Tartrate [Lopressor] 25 mg PO DAILY #30 tablet 12/21/17 Multivitamin [Poly-Vitamin] 1 each PO DAILY #30 tab.chew 07/02/17 Collagenase Clostridium Hist. [Santyl] 1 applic TP DAILY #90 oint...g. 09/28/17 Family Disease History - Family Disease History Family Disease History: Heart Disease: Mother (CVA), CA: Brother (throat cancer) , Sister Review of Systems - Review of Systems Cardiovascular: denies: Chest Pain, Palpitations, Shortness of Breath Physical Examination Vital Signs: Vital Signs Temperature 97.1 F L 05/24/18 22:20 Pulse Rate 73 05/25/18 11:25 Respiratory Rate 18 05/25/18 11:25 Blood Pressure 117/82 05/25/18 11:25 O2 Sat by Pulse Oximetry (%) 94 L 05/25/18 11:25 Constitutional: Yes: No Distress, Calm Cardiovascular: Yes: Regular Rate and Rhythm Respiratory: Yes: Diminished, Rhonchi Gastrointestinal: Yes: Normal Bowel Sounds, Soft. No: Tenderness Edema: No Labs: CBC, BMP 05/25/18 01:18 05/25/18 01:18 Imaging - Results Chest X-ray: Image Reviewed Cat Scan: Report Reviewed EKG: Image Reviewed Problem List - Problems (1) Syncope Code(s): R55 - SYNCOPE AND COLLAPSE Qualifiers: Syncope type: unspecified Qualified Code(s): R55 - Syncope and collapse (2) COPD (chronic obstructive pulmonary disease) Code(s): J44.9 - CHRONIC OBSTRUCTIVE PULMONARY DISEASE, UNSPECIFIED (3) Rhabdomyolysis Code(s): M62.82 - RHABDOMYOLYSIS (4) Severe malnutrition Code(s): E43 - UNSPECIFIED SEVERE PROTEIN-CALORIE MALNUTRITION Assessment/Plan PLAN CT head negative check cardiac enzymes CPK elevated IV fluids Cardiology eval serial cardiac enzymes and CPK continue with meds check orthostasis check Echo, carotid doppler fall precautions
[2018-05-25] MEDS ORDERED: guaiFENesin 200 MG/10 ML 10 ML UNIT-DOSE CUPS PO PRN (11:43)
[2018-05-25] MEDS: ALBUTEROL SO4 2.5/IPRATROPIUM 0.5 INH SOL 3 ML VIAL.NEB. NEB PRN (11:47)
[2018-05-25] MEDS: ABACAVIR SULFATE 300 MG TABLET PO SCH ×2 (12:26→22:00)
[2018-05-25] MEDS: BUDESONIDE/FORMETEROL FUMARATE 160/4.5 mcg INHALER IH SCH ×2 (12:26→22:05)
[2018-05-25] MEDS: lamiVUDine 150 MG TABLET PO SCH (12:26)
[2018-05-25 14:32] VITALS: BMI 18.3
--- NOTE | 2018-05-25 15:07 | CON.CARD ---
Consult Consult Specialty:: cardiology Reason for Consultation:: near syncope - History of Present Illness Chief Complaint: Pt alert; denies chest pain, dizziness, dyspnea. She wants to smoke a cigarette (refuses nicotine patch or other aids for smoking cessation). History of Present Illness: 63 yo black woman h/o HIV, COPD, HTN, HLD, Hep C, s/p left hip replacement, scoliosis, lower back compression, now presents to the ER with nausea and vomiting She is a difficult historian as she does not want to answer questions. (Later, when more approachable, poor dentition made it difficult for her to be understood). She had a single episode of emesis She is thought to have an unwitnessed fall (she was found sitting on the floor, pt denies falling, she denies LOC or head trauma); she says this was because "the toilet is too low". Pt says she has fallen before. ?She was found to be hypoxic (per [facility], she was found to be hypoxic at 86-89%. she was given albuterol and oxygen). Currently, she denies pain, but endorses feeling feverish and nausea. +long-term cigarette smoker; denies other drugs. Pt denies hx [place]. 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 Home Medications - Allergies Allergies/Adverse Reactions: Allergies Allergy/AdvReac Type Severity Reaction Status Date / Time Penicillins AdvReac Severe Verified 05/24/18 23:07 COD FISH Allergy Uncoded 05/24/18 23:07 - Home Medications Home Medications: Ambulatory Orders Gabapentin 400 mg PO DAILY #30 capsule 12/23/16 Abacavir Sulfate [Abacavir] 300 mg PO BID #60 tablet 07/02/17 Amlodipine Besylate 10 mg PO DAILY #30 tablet 12/21/17 Darunavir/Cobicistat [Prezcobix 800 mg-150 mg Tablet] 1 each PO DAILY #30 tablet 07/02/17 Lactose-Reduced Food [Ensure Original] 237 ml PO TID #90 liquid 07/02/17 Lamivudine 300 mg PO DAILY #30 tablet 07/02/17 Metoprolol Tartrate [Lopressor] 25 mg PO DAILY #30 tablet 07/02/17 Multivitamin [Poly-Vitamin] 1 each PO DAILY #30 tab.chew 07/02/17 Collagenase Clostridium Hist. [Santyl] 1 applic TP DAILY #90 oint...g. 09/28/17 Family Disease History - Family Disease History Family Disease History: Heart Disease: Mother (CVA), CA: Brother (throat cancer) , Sister Review of Systems - Review of Systems Constitutional: reports: Weakness Eyes: reports: No Symptoms HENT: reports: Other (?dentures are missing) Neck: reports: No Symptoms Cardiovascular: reports: No Symptoms Musculoskeletal: reports: Muscle Weakness Neurological: reports: Weakness Psychiatric: reports: Anxiety - Risk Factors Known Risk Factors: Yes: Age, Hypertension, Physical Inactivity, Race, Smoking Vital Signs: Vital Signs Temperature 98.2 F 05/25/18 14:52 Pulse Rate 80 05/25/18 14:52 Respiratory Rate 18 05/25/18 14:52 Blood Pressure 127/84 05/25/18 14:52 O2 Sat by Pulse Oximetry (%) 97 05/25/18 14:07 Constitutional: Yes: Calm Eyes: Yes: WNL HENT: Yes: Other (edenulous; difficult to understand her speech) Neck: Yes: WNL Respiratory: Yes: Regular Gastrointestinal: Yes: Soft Renal/: No: Anuria Cardiovascular: Yes: Regular Rate and Rhythm JVD: No Carotid Bruit: No PMI: Displaced Heart Sounds: Yes: S1, S2 Murmur: Yes: Systolic Murmur, Grade 2 Musculoskeletal: Yes: Joint Stiffness, Muscle Pain, Muscle Weakness Extremities: Yes: Cool Edema: No Peripheral Pulses WNL: Yes Neurological: Yes: Alert, Oriented, Weakness Psychiatric: Yes: Alert, Oriented - Other Data Labs, Other Data: CBC, BMP 05/25/18 01:18 05/25/18 01:18 Troponin, BNP 05/25/18 05/25/18 05/25/18 01:18 11:45 12:40 Troponin I < 0.02 < 0.02 < 0.02 Troponin, BNP 05/25/18 05/25/18 05/25/18 01:18 11:45 12:40 Troponin I < 0.02 < 0.02 < 0.02 Abnormal Lab Results 05/25/18 05/25/18 05/25/18 01:18 01:18 12:40 MCV 98.6 H BUN 30 H AST 38 H Alkaline Phosphatase 124 H Creatine Kinase 431 H 1148 H CK-MB (CK-2) 6.6 H 13.4 H B-Natriuretic Peptide Total Protein 9.0 H 05/25/18 12:40 MCV BUN AST Alkaline Phosphatase Creatine Kinase CK-MB (CK-2) B-Natriuretic Peptide 166.9 H Total Protein Imaging - Results Chest X-ray: Image Reviewed EKG: Image Reviewed Problem List - Problems (1) Syncope Assessment/Plan: Avoid dehydration. Orthostatic VS checks. EKG: normal study. F/u ECHO for LVEF, wall motion, valve status. F/u carotid artery US. F/u stress MIBI. Code(s): R55 - SYNCOPE AND COLLAPSE Qualifiers: Syncope type: unspecified Qualified Code(s): R55 - Syncope and collapse (2) COPD (chronic obstructive pulmonary disease) Assessment/Plan: 2015 CT chest results noted (IS changes, nodularity); consider repeat. Code(s): J44.9 - CHRONIC OBSTRUCTIVE PULMONARY DISEASE, UNSPECIFIED (3) Closed left hip fracture Code(s): S72.002A - FRACTURE OF UNSP PART OF NECK OF LEFT FEMUR, INIT (4) Hepatitis C antibody positive in blood Code(s): R76.8 - OTHER SPECIFIED ABNORMAL IMMUNOLOGICAL FINDINGS IN SERUM (5) AIDS (acquired immunodeficiency syndrome), CD4 >200 and <500 Code(s): B20 - HUMAN IMMUNODEFICIENCY VIRUS [HIV] DISEASE (6) Essential hypertension Assessment/Plan: On metoprolol tartrate (give bid for better 24 hour coverage, or change to succinate for once a day dosing) and amlodipine. Code(s): I10 - ESSENTIAL (PRIMARY) HYPERTENSION (7) Tobacco use disorder Assessment/Plan: Pt craves cigarettes, but does not want to try nicotine patch (saying it did not work in the past) or other forms of smoking cessation. Code(s): Z72.0 - TOBACCO USE (8) [place] cardiac risk >20% in next 10 years Assessment/Plan: f/u lipid panel. BP check serially (on metoprolol and amlodipine). Encourage smoking cessation. ECHO for LVEF, wall motion, valve status. Stress MIBI, when stable, to r/o CAD. Code(s): Z91.89 - [facility] PERSONAL RISK FACTORS, NOT ELSEWHERE CLASSIFIED (9) Cardiac enlargement Assessment/Plan: multichamber cardiac enlargement noted on CT chest 2015. F/u ECHO for LVEF, wall motion, chamber sizes, valve status. Code(s): I51.7 - CARDIOMEGALY
[2018-05-25] MEDS: DARUNAVIR 800 MG/COBICISTAT 150MG TABLET PO SCH (16:22)
[2018-05-25] MEDS: POLYETHYLENE GLYCOL 3350 119 GM BTL PO SCH (16:22)
--- NOTE | 2018-05-25 16:25 | EKG ---
Test Reason : Blood Pressure : / mmHG Vent. Rate : 084 BPM Atrial Rate : 084 BPM P-R Int : 174 ms QRS Dur : 076 ms QT Int : 412 ms P-R-T Axes : 050 018 033 degrees QTc Int : 486 ms POOR DATA QUALITY, INTERPRETATION MAY BE ADVERSELY AFFECTED NORMAL SINUS RHYTHM NORMAL ECG WHEN COMPARED WITH ECG OF 08-MAR-2017 18:20, NO SIGNIFICANT CHANGE WAS FOUND Confirmed by MD Prince, Armand ([id number]) on 05/25/2018 4:25:11 PM Referred By: Confirmed By:Armand Morrison MD
[2018-05-25] MEDS ORDERED: SODIUM CHLORIDE 1,000 ML IV SCH (17:45)
[2018-05-25 21:32] LABS: CHOLESTEROL 125 mg/dL (50-200); HDL CHOLESTEROL 59 mg/dL (40-60); TRIGLYCERIDES 45 mg/dL (0-150)
[2018-05-25] MEDS: HEPARIN NA (PORCINE) 5,000 UNITS/ML 1ML VIAL SQ SCH (21:37)
[2018-05-25] MEDS: METOPROLOL TARTRATE 25 MG TABLET (FP) PO SCH (21:37)
[2018-05-26 07:19] LABS: HEMATOCRIT 36.9 % (32.4-45.2); HEMOGLOBIN 12.1 GM/dL (10.7-15.3); MCH 32.6 pg (25.7-33.7); MCHC 32.6 g/dl (32.0-36.0); MEAN CELL VOLUME 99.7 fl (80-96); RDW 14.8 % (11.6-15.6); WHITE BLOOD COUNT 4.6 K/mm3 (4.0-10.0)
[2018-05-26 08:33] LABS: ALBUMIN 3.2 g/dl (3.4-5.0); ALK PHOS 100 U/L (45-117); ANION GAP 5 MMOL/L (8-16); BILIRUBIN,TOTAL 0.3 mg/dL (0.2-1); BLOOD UREA NITROGEN 26 mg/dL (7-18); CALCIUM 8.8 mg/dL (8.5-10.1); CHLORIDE 108 mmol/L (98-107); CO2 29 mmol/L (21-32); CREATININE 1.2 mg/dL (0.55-1.3); GLUCOSE,RANDOM 75 mg/dL (74-106); POTASSIUM 4.3 mmol/L (3.5-5.1); SGOT/AST 47 U/L (15-37); SGPT/ALT 31 U/L (13-61); SODIUM 141 mmol/L (136-145); TOT PROT 7.3 g/dl (6.4-8.2)
[2018-05-26] MEDS ORDERED: PT OWN MED DRAWER 7, Y5N ONE (09:27)
[2018-05-26] MEDS: HEPARIN NA (PORCINE) 5,000 UNITS/ML 1ML VIAL SQ SCH (09:44)
[2018-05-26] MEDS: ABACAVIR SULFATE 300 MG TABLET PO SCH (09:44)
[2018-05-26] MEDS: METOPROLOL TARTRATE 25 MG TABLET (FP) PO SCH (09:45)
[2018-05-26] MEDS: DARUNAVIR 800 MG/COBICISTAT 150MG TABLET PO SCH (09:46)
[2018-05-26] MEDS: lamiVUDine 150 MG TABLET PO SCH (09:46)
[2018-05-26] MEDS: POLYETHYLENE GLYCOL 3350 119 GM BTL PO SCH (10:00)
[2018-05-26] MEDS ORDERED: amLODIPine BESYLATE 10 MG TABLET (FP) PO SCH (10:00)
[2018-05-26] MEDS ORDERED: METOPROLOL TARTRATE 25 MG TABLET (FP) PO SCH (10:00)
[2018-05-26] MEDS: BUDESONIDE/FORMETEROL FUMARATE 160/4.5 mcg INHALER IH SCH (10:00)
--- NOTE | 2018-05-26 11:19 | PN ---
Progress Note, Physician History of Present Illness: 63 yo black woman h/o HIV, COPD, HTN, HLD, Hep C, s/p left hip replacement, scoliosis, lower back compression, now presents to the ER with nausea and vomiting She is a difficult historian as she does not want to answer questions. (Later, when more approachable, poor dentition made it difficult for her to be understood). She had a single episode of emesis She is thought to have an unwitnessed fall (she was found sitting on the floor, pt denies falling, she denies LOC or head trauma); she says this was because "the toilet is too low". Pt says she has fallen before. ?She was found to be hypoxic (per [facility], she was found to be hypoxic at 86-89%. she was given albuterol and oxygen). Currently, she denies pain, but endorses feeling feverish and nausea. +long-term cigarette smoker; denies other drugs. Pt denies hx [place]. - Current Medication List Current Medications: Active Medications Abacavir Sulfate (Ziagen -) 300 mg PO BID [facility] Last Admin: 05/26/18 09:44 Dose: 300 mg Albuterol/Ipratropium (Duoneb -) 1 amp NEB Q6H PRN PRN Reason: SHORTNESS OF BREATH Last Admin: 05/25/18 11:47 Dose: 1 amp Amlodipine Besylate (Norvasc -) 10 mg PO DAILY [facility] Last Admin: 05/26/18 09:44 Dose: 10 mg Budesonide/Formoterol Fumarate (Symbicort 160/4.5mcg -) 2 puff IH BID [facility] Last Admin: 05/25/18 22:05 Dose: Not Given Guaifenesin (Robitussin -) 10 ml PO Q4H PRN PRN Reason: COUGH Heparin Sodium (Porcine) (Heparin -) 5,000 unit SQ BID [facility] Last Admin: 05/26/18 09:44 Dose: 5,000 unit Sodium Chloride (Normal Saline -) 1,000 mls @ 125 mls/hr IV ASDIR [facility] Lamivudine (Epivir -) 300 mg PO DAILY [facility] Last Admin: 05/26/18 09:46 Dose: 300 mg Metoprolol Tartrate (Lopressor -) 25 mg PO BID [facility] Last Admin: 05/26/18 09:45 Dose: 25 mg Polyethylene Glycol (Miralax (For Daily Use) -) 17 gm PO DAILY [facility] Last Admin: 05/25/18 16:22 Dose: 17 grams - Objective Vital Signs: Vital Signs Temperature 98.4 F 05/26/18 06:00 Pulse Rate 74 05/26/18 06:00 Respiratory Rate 20 05/26/18 06:00 Blood Pressure 103/55 L 05/26/18 06:00 O2 Sat by Pulse Oximetry (%) 94 L 05/25/18 21:00 Eyes: Yes: WNL, Conjunctiva Clear, EOM Intact HENT: Yes: WNL, Atraumatic, Normocephalic Neck: Yes: WNL, Supple, Trachea Midline Cardiovascular: Yes: WNL, Regular Rate and Rhythm Respiratory: Yes: WNL, Regular, CTA Bilaterally Gastrointestinal: Yes: WNL, Normal Bowel Sounds Genitourinary: Yes: WNL Musculoskeletal: Yes: WNL Extremities: Yes: WNL Edema: No Integumentary: Yes: WNL Neurological: Yes: WNL, Alert, Oriented ...Motor Strength: WNL Psychiatric: Yes: WNL Labs: CBC, BMP 05/26/18 05:30 05/26/18 05:30 Assessment/Plan - Problems (1) Syncope Assessment/Plan: Avoid dehydration. Orthostatic VS checks. EKG: normal study. F/u ECHO for LVEF, wall motion, valve status. F/u carotid artery US. F/u stress MIBI. Code(s): R55 - SYNCOPE AND COLLAPSE Qualifiers: Syncope type: unspecified Qualified Code(s): R55 - Syncope and collapse (2) COPD (chronic obstructive pulmonary disease) Assessment/Plan: 2016 CT chest results noted (IS changes, nodularity); consider repeat. Code(s): J44.9 - CHRONIC OBSTRUCTIVE PULMONARY DISEASE, UNSPECIFIED (3) Closed left hip fracture Code(s): S72.002A - FRACTURE OF UNSP PART OF NECK OF LEFT FEMUR, INIT (4) Hepatitis C antibody positive in blood Code(s): R76.8 - OTHER SPECIFIED ABNORMAL IMMUNOLOGICAL FINDINGS IN SERUM (5) AIDS (acquired immunodeficiency syndrome), CD4 >200 and <500 Code(s): B20 - HUMAN IMMUNODEFICIENCY VIRUS [HIV] DISEASE (6) Essential hypertension Assessment/Plan: On metoprolol tartrate (give bid for better 24 hour coverage, or change to succinate for once a day dosing) and amlodipine. Code(s): I10 - ESSENTIAL (PRIMARY) HYPERTENSION (7) Tobacco use disorder Assessment/Plan: Pt craves cigarettes, but does not want to try nicotine patch (saying it did not work in the past) or other forms of smoking cessation. Code(s): Z72.0 - TOBACCO USE (8) [place] cardiac risk >20% in next 10 years Assessment/Plan: f/u lipid panel. BP check serially (on metoprolol and amlodipine). Encourage smoking cessation. ECHO for LVEF, wall motion, valve status. Stress MIBI, when stable, to r/o CAD. Code(s): Z91.89 - [facility] PERSONAL RISK FACTORS, NOT ELSEWHERE CLASSIFIED (9) Cardiac enlargement Assessment/Plan: multichamber cardiac enlargement noted on CT chest 2015. F/u ECHO for LVEF, wall motion, chamber sizes, valve status. Code(s): I51.7 - CARDIOMEGALY
--- NOTE | 2018-05-26 13:03 | DS ---
Physical Examination Vital Signs: Vital Signs Temperature 98.4 F 05/26/18 06:00 Pulse Rate 74 05/26/18 06:00 Respiratory Rate 20 05/26/18 06:00 Blood Pressure 103/55 L 05/26/18 06:00 O2 Sat by Pulse Oximetry (%) 94 L 05/25/18 21:00 Constitutional: Yes: No Distress, Calm Cardiovascular: Yes: Regular Rate and Rhythm Respiratory: Yes: Diminished, Rhonchi Gastrointestinal: Yes: Normal Bowel Sounds, Soft. No: Tenderness Edema: No Labs: CBC, BMP 05/26/18 05:30 05/26/18 05:30 Discharge Summary Reason For Visit: SYNCOPE Current Active Problems Cardiac enlargement (Acute) [place] cardiac risk >20% in next 10 years (Acute) Syncope (Acute) Hospital Course: Admitted for fall CT head negative CT abd pelvis negative seen by Cradiology cardiac enzymes negative CPK is decreasing with IV fluids Stable for dc to [facility] will need outpt stress test, echo was done-- will follow up on results Condition: Good - Instructions Disposition: INTERMEDIATE FACILITY - Home Medications Comprehensive Discharge Medication List: Ambulatory Orders Gabapentin 400 mg PO DAILY #30 capsule 12/23/16 Abacavir Sulfate [Abacavir] 300 mg PO BID #60 tablet 07/02/17 Amlodipine Besylate 10 mg PO DAILY #30 tablet 07/02/17 Darunavir/Cobicistat [Prezcobix 800 mg-150 mg Tablet] 1 each PO DAILY #30 tablet 07/02/17 Lactose-Reduced Food [Ensure Original] 237 ml PO TID #90 liquid 07/02/17 Lamivudine 300 mg PO DAILY #30 tablet 07/02/17 Metoprolol Tartrate [Lopressor] 25 mg PO DAILY #30 tablet 07/02/17 Multivitamin [Poly-Vitamin] 1 each PO DAILY #30 tab.chew 07/02/17 Collagenase Clostridium Hist. [Santyl] 1 applic TP DAILY #90 oint...g. 09/28/17
[2018-05-26 14:39] VITALS: BP 108/70; PULSE 61; TEMP 98.3
[2018-05-26] MEDS: ALBUTEROL SO4 2.5/IPRATROPIUM 0.5 INH SOL 3 ML VIAL.NEB. NEB PRN (16:15)
== END 2018-05-26 18:18 ==
LOC: JER 22:19 → JERBED 05-25 08:25 → J4W 05-25 14:00
PROVIDERS: ADMIT Internal Medicine; ATTEND Internal Medicine
PROC: 3E033GC Introduction of Other Therapeutic Substance into Peripheral Vein, Percutaneous Approach (ICD-10-PCS; principal; 2018-05-25)
PROC: 3E0337Z Introduction of Electrolytic and Water Balance Substance into Peripheral Vein, Percutaneous Approach (ICD-10-PCS; 2018-05-25)
PROC: 3E013GC Introduction of Other Therapeutic Substance into Subcutaneous Tissue, Percutaneous Approach (ICD-10-PCS; 2018-05-25)
PROC: 3E0F7GC Introduction of Other Therapeutic Substance into Respiratory Tract, Via Natural or Artificial Opening (ICD-10-PCS; 2018-05-25)
DX: R55 Syncope and collapse (principal); I10 Essential (primary) hypertension; I51.7 Cardiomegaly; E78.5 Hyperlipidemia, unspecified; J44.9 Chronic obstructive pulmonary disease, unspecified; B18.2 Chronic viral hepatitis C; B20 Human immunodeficiency virus [HIV] disease; F17.210 Nicotine dependence, cigarettes, uncomplicated; F03.90 Unspecified dementia, unspecified severity, without behavioral disturbance, psychotic disturbance, mood disturbance, and anxiety; D64.9 Anemia, unspecified; M62.82 Rhabdomyolysis; E43 Unspecified severe protein-calorie malnutrition; Z68.1 Body mass index [BMI] 19.9 or less, adult; Z91.89 Other specified personal risk factors, not elsewhere classified
CPT/HCPCS: 36415; 70450-TC; 71045-TC-FY; 74177-TC; 80053; 80061; 82150; 82550; 82553; 83690; 83721; 83880; 84484; 85025; 85027; 93005; 93010; 93306-TC; 93880-TC; 94640; 96361; 96372; 96374; 99285-25; G0378; J1644

== ENCOUNTER 2022-05-08 07:19 | Observation (INO) | payer OTHER ==
[2022-05-08] MEDS ORDERED: ACETAMINOPHEN 1000 MG/100 ML BAG IVPB ONE (08:16)
[2022-05-08] MEDS ORDERED: ACETAMINOPHEN INJECTION 100 ML IVPB ONE (09:15)
[2022-05-08 09:59] LABS: HEMATOCRIT 38.8 % (32.4-45.2); MCHC 33.5 g/dl (32.0-36.0); MEAN CELL VOLUME 89.6 fl (80-96); MEAN PLT VOLUME 9.4 fl (7.5-11.1); PLATELET COUNT 150 10^3/uL (134-434); RBC 4.33 M/mm3 (3.60-5.2); RDW 14.5 % (11.6-15.6); WHITE BLOOD COUNT 4.1 K/mm3 (4.0-10.0)
[2022-05-08 10:03] LABS: INR 1.14 (0.83-1.09); PROTHROMBIN TIME (PATIENT) 13.1 SEC (9.7-13.0)
[2022-05-08 10:06] LABS: ACTIVATED PTT 35.8 SECONDS (25.2-36.5)
[2022-05-08 10:25] LABS: ALBUMIN 3.5 g/dl (3.4-5.0); BLOOD UREA NITROGEN 13.5 mg/dL (7-18); CALCIUM 9.4 mg/dL (8.5-10.1)
[2022-05-08 10:30] LABS: BILIRUBIN,TOTAL 0.4 mg/dL (0.2-1); TOT PROT 7.6 g/dl (6.4-8.2)
[2022-05-08 10:45] LABS: ANISOCYTOSIS 1+; MACROCYTOSIS 0
[2022-05-08] MEDS ORDERED: ACETAMINOPHEN 1000 MG/100 ML BAG IVPB PRN (18:58)
[2022-05-08 21:09] VITALS: BMI 21.9
[2022-05-08] MEDS ORDERED: DOCUSATE SODIUM 100 MG CAPSULE (FP) PO PRN (22:30)
[2022-05-08] MEDS ORDERED: ERTAPENEM SODIUM 1 GM in SODIUM CHLORIDE 50 ML IVPB ONE (22:32)
[2022-05-09] MEDS: ACETAMINOPHEN 325 MG TABLET (FP) PO PRN ×2 (03:27→08:48)
[2022-05-09] MEDS: ABACAVIR SULFATE 300 MG TABLET PO SCH ×2 (12:35→22:09)
[2022-05-09] MEDS: DARUNAVIR 800 MG/COBICISTAT 150MG TABLET PO SCH (12:35)
[2022-05-09] MEDS: lamiVUDine 150 MG TABLET PO SCH ×2 (12:36→21:42)
[2022-05-09] MEDS: BUDESONIDE/FORMETEROL FUMARATE 160/4.5 mcg INHALER IH SCH ×2 (13:54→21:42)
[2022-05-09] MEDS: HEPARIN NA (PORCINE) 5,000 UNITS/ML 1ML VIAL SQ SCH (21:41)
[2022-05-09] MEDS ORDERED: SENNOSIDES 8.6MG TABLET (FP) PO SCH (22:00)
[2022-05-09] MEDS ORDERED: ATORVASTATIN CA 20 MG TABLET (FP) PO SCH (22:00)
[2022-05-10 06:21] VITALS: RESP 18
[2022-05-10] MEDS: lamiVUDine 150 MG TABLET PO SCH (12:08)
[2022-05-10] MEDS: HEPARIN NA (PORCINE) 5,000 UNITS/ML 1ML VIAL SQ SCH (12:08)
[2022-05-10] MEDS: DARUNAVIR 800 MG/COBICISTAT 150MG TABLET PO SCH (12:09)
[2022-05-10] MEDS: ABACAVIR SULFATE 300 MG TABLET PO SCH (12:09)
[2022-05-10] MEDS: BUDESONIDE/FORMETEROL FUMARATE 160/4.5 mcg INHALER IH SCH (12:10)
[2022-05-10 15:14] VITALS: BP 123/64; PULSE 72; TEMP 98.4
== END 2022-05-10 22:00 ==
LOC: JER 07:19 → JERBED 08:08 → UNDOADMOB 08:08 → INTOOBSV 08:08 → JERBED 20:20 → J8W 20:20 → JERBED 05-09 15:25
PROVIDERS: ADMIT Internal Medicine; ATTEND Internal Medicine
PROC: 3E033NZ Introduction of Analgesics, Hypnotics, Sedatives into Peripheral Vein, Percutaneous Approach (ICD-10-PCS; principal; 2022-05-09)
PROC: 3E023GC Introduction of Other Therapeutic Substance into Muscle, Percutaneous Approach (ICD-10-PCS; 2022-05-09)
DX: M54.9 Dorsalgia, unspecified (principal); R41.82 Altered mental status, unspecified; B20 Human immunodeficiency virus [HIV] disease; W06.XXXA Fall from bed, initial encounter; Y93.89 Activity, other specified; F48.2 Pseudobulbar affect; Y92.092 Bedroom in other non-institutional residence as the place of occurrence of the external cause; J44.9 Chronic obstructive pulmonary disease, unspecified; I10 Essential (primary) hypertension; I69.891 Dysphagia following other cerebrovascular disease; K21.9 Gastro-esophageal reflux disease without esophagitis; E78.5 Hyperlipidemia, unspecified; B19.20 Unspecified viral hepatitis C without hepatic coma; K59.00 Constipation, unspecified; Z88.0 Allergy status to penicillin; Z91.013 Allergy to seafood; F17.210 Nicotine dependence, cigarettes, uncomplicated
CPT/HCPCS: 0241U-QW; 36415; 70450-TC; 71045-TC-FY; 72125-TC; 72128-TC; 72131-TC; 72170-TC-FY; 72192-TC; 73502-TC-RT-FY; 80053; 80061; 84484; 85025; 85610; 85730; 86850; 86900; 86901; 93005; 93010; 97116-GP; 97161-GP; 99285-25; G0378; J1644

== ENCOUNTER 2024-04-26 11:52 | Inpatient (IN) | payer OTHER ==
[2024-04-26 13:22] LABS: HEMATOCRIT 46.1 % (32.4-45.2); HEMOGLOBIN 15.4 GM/dL (10.7-15.3); MCH 32.2 pg (25.7-33.7); MCHC 33.3 g/dl (32.0-36.0); MEAN CELL VOLUME 96.6 fl (80-96); MEAN PLT VOLUME 9.6 fl (7.5-11.1); PLATELET COUNT 152 10^3/uL (134-434); RBC 4.77 M/mm3 (3.60-5.2); RDW 14.2 % (11.6-15.6); WHITE BLOOD COUNT 2.4 K/mm3 (4.0-10.0)
[2024-04-26 13:33] LABS: POTASSIUM 4.5 mmol/L (3.5-5.1)
[2024-04-26 13:34] LABS: ALBUMIN 4.2 g/dl (3.4-5.0)
[2024-04-26 13:36] LABS: BLOOD UREA NITROGEN 17.2 mg/dL (7-18); CALCIUM 10.2 mg/dL (8.5-10.1)
[2024-04-26 13:39] LABS: BILIRUBIN,TOTAL 0.6 mg/dL (0.2-1); TOT PROT 9.4 g/dl (6.4-8.2)
[2024-04-26 13:44] LABS: N-TERMINAL BNP 248.6 pg/ml (5-125)
[2024-04-26] MEDS ORDERED: methylPREDNISolone NA SUCC 125 MG/2 ML VIAL ONE (18:12)
[2024-04-26] MEDS: methylPREDNISolone NA SUCC 125 MG/2 ML VIAL IVPUSH ONE (18:14)
[2024-04-26] MEDS: REMDESIVIR 200 MG in SODIUM CHLORIDE 250 ML IVPB ONE (18:14)
[2024-04-26 18:44] LABS: URINE APPEARANCE TURBID; URINE BILIRUBIN NEGATIVE (NEGATIVE); URINE COLOR YELLOW; URINE GLUCOSE (UA) NEGATIVE (NEGATIVE); URINE KETONE TRACE (NEGATIVE); URINE LEUK ESTERASE TRACE (NEGATIVE); URINE NITRITE POSITIVE (NEGATIVE); URINE PROTEIN 2+ (NEGATIVE); URINE UROBILINOGEN 0.2 mg/dL (0.2-1.0)
[2024-04-26 18:46] LABS: HIV INTERPRETATION PRESUMPTIVE POSITIVE (NEGATIVE)
[2024-04-26 19:24] LABS: URINE RBC 19.2 /uL (0-23.9)
[2024-04-26 19:25] LABS: EPI CELLS 25.1 /uL (0-25.1); HYALINE CASTS 2.88 /uL (0-3.1); URINE BACTERIA 67953.2 /uL (0-1359); URINE WBC 305.7 /uL (0-25.8)
[2024-04-26] MEDS ORDERED: ALBUTEROL SO4 2.5/IPRATROPIUM 0.5 INH SOL 3 ML VIAL.NEB. NEB ONE (20:54)
[2024-04-26] MEDS: HEPARIN NA (PORCINE) 5,000 UNITS/ML 1ML VIAL SQ SCH (20:57)
[2024-04-26] MEDS: ALBUTEROL SO4 2.5/IPRATROPIUM 0.5 INH SOL 3 ML VIAL.NEB. NEB PRN (20:57)
[2024-04-26] MEDS ORDERED: HEPARIN NA (PORCINE) 5,000 UNITS/ML 1ML VIAL ONE (21:44)
[2024-04-27] MEDS ORDERED: ALBUTEROL SO4 2.5/IPRATROPIUM 0.5 INH SOL 3 ML VIAL.NEB. NEB ONE ×3 (05:50→16:49)
[2024-04-27 08:25] LABS: BASO % 0.1 % (0-2.0); HEMATOCRIT 41.4 % (32.4-45.2); HEMOGLOBIN 14.1 GM/dL (10.7-15.3); LYMPH % 14.5 % (8-40); MCH 32.3 pg (25.7-33.7); MEAN CELL VOLUME 95.1 fl (80-96); MEAN PLT VOLUME 9.6 fl (7.5-11.1); MONO % 1.7 % (3.8-10.2); NEUT % 83.7 % (42.8-82.8); PLATELET COUNT 129 10^3/uL (134-434); RBC 4.35 M/mm3 (3.60-5.2); WHITE BLOOD COUNT 3.9 K/mm3 (4.0-10.0)
[2024-04-27 08:50] LABS: POTASSIUM 3.4 mmol/L (3.5-5.1)
[2024-04-27 08:55] LABS: ALBUMIN 3.4 g/dl (3.4-5.0); BLOOD UREA NITROGEN 30.9 mg/dL (7-18); CALCIUM 9.3 mg/dL (8.5-10.1)
[2024-04-27 08:58] LABS: CREATININE 1.1 mg/dL (0.55-1.3)
[2024-04-27 08:59] LABS: BILIRUBIN,TOTAL 0.4 mg/dL (0.2-1)
[2024-04-27] MEDS: REMDESIVIR 100 MG in SODIUM CHLORIDE 250 ML IVPB SCH (11:13)
[2024-04-27] MEDS ORDERED: DEXAMETHASONE SOD PHOSPHATE 10 MG/1 ML VIAL ONE (12:14)
[2024-04-27] MEDS: ALBUTEROL SO4 2.5/IPRATROPIUM 0.5 INH SOL 3 ML VIAL.NEB. NEB SCH (12:20)
[2024-04-27] MEDS: DEXAMETHASONE SOD PHOSPHATE 10 MG/1 ML VIAL IVPUSH SCH (12:20)
[2024-04-27] MEDS: methylPREDNISolone NA SUCC 40 MG/1 ML VIAL IVPUSH SCH (12:21)
[2024-04-27] MEDS: DARUNAVIR/COB/EMTRI/TENOF ALAF 1 EACH TABLET PO SCH (19:31)
[2024-04-27] MEDS ORDERED: ATORVASTATIN CA 20 MG TABLET (FP) ONE (21:34)
[2024-04-27] MEDS ORDERED: ACETAMINOPHEN 325 MG TABLET (FP) ONE (21:35)
[2024-04-27] MEDS ORDERED: HEPARIN NA (PORCINE) 5,000 UNITS/ML 1ML VIAL ONE (21:35)
[2024-04-27] MEDS: ATORVASTATIN CA 20 MG TABLET (FP) PO SCH (21:46)
[2024-04-27] MEDS: ACETAMINOPHEN 325 MG TABLET (FP) PO PRN (21:46)
[2024-04-28 00:21] VITALS: RESP 18
[2024-04-28] MEDS: AZTREONAM 1 GM in DEXTROSE 5%-WATER - 50 ML IVPB SCH (12:40)
[2024-04-28 13:40] VITALS: BMI 21.1
[2024-04-30] MEDS: NITROFURANTOIN MONOHYD/M-CRYST 100 MG CAPSULE PO SCH (17:51)
[2024-04-30 20:09] VITALS: BP 134/76; PULSE 74; TEMP 97.8
== END 2024-04-30 19:40 | DRG 137 ==
LOC: JER 11:52 → JERBED 13:03 → J8W 04-28 01:01
PROVIDERS: ADMIT Internal Medicine; ATTEND Internal Medicine
PROC: XW033E5 Introduction of Remdesivir Anti-infective into Peripheral Vein, Percutaneous Approach, New Technology Group 5 (ICD-10-PCS; principal; 2024-04-26)
DX: U07.1 COVID-19 (principal); Z21 Asymptomatic human immunodeficiency virus [HIV] infection status; F41.9 Anxiety disorder, unspecified; E78.00 Pure hypercholesterolemia, unspecified; M54.89 Other dorsalgia; R09.02 Hypoxemia; B19.20 Unspecified viral hepatitis C without hepatic coma; E86.0 Dehydration; N39.0 Urinary tract infection, site not specified; J44.9 Chronic obstructive pulmonary disease, unspecified; I10 Essential (primary) hypertension; F03.90 Unspecified dementia, unspecified severity, without behavioral disturbance, psychotic disturbance, mood disturbance, and anxiety; B96.20 Unspecified Escherichia coli [E. coli] as the cause of diseases classified elsewhere; B95.4 Other streptococcus as the cause of diseases classified elsewhere; Z88.0 Allergy status to penicillin
CPT/HCPCS: 0241U-QW; 36415; 71045-TC-FY; 80053; 81003; 83880; 84484; 85025; 85027; 86140; 86803; 87086; 87186; 87389; 87522; 93005; 93010; 94640; 99285-25; J0248; J1100; J1644

== ENCOUNTER 2024-05-17 01:53 | Observation (INO) | payer OTHER ==
[2024-05-17 04:26] LABS: EPI CELLS 26 /uL (0-25.1); HYALINE CASTS 3 /uL (0-3.1); PH,URINE 5.5 (5.0-8.0); URINE APPEARANCE CLEAR; URINE BACTERIA 7 /uL (0-1359); URINE BILIRUBIN NEGATIVE (NEGATIVE); URINE COLOR DK YELLOW; URINE GLUCOSE (UA) NEGATIVE (NEGATIVE); URINE KETONE NEGATIVE (NEGATIVE); URINE LEUK ESTERASE 1+ (NEGATIVE); URINE NITRITE NEGATIVE (NEGATIVE); URINE PROTEIN TRACE (NEGATIVE); URINE RBC 28 /uL (0-23.9); URINE WBC 81 /uL (0-25.8)
[2024-05-17 05:53] LABS: POTASSIUM 4.4 mmol/L (3.5-5.1)
[2024-05-17 05:55] LABS: CALCIUM 8.7 mg/dL (8.5-10.1)
[2024-05-17 05:56] LABS: ALBUMIN 2.2 g/dl (3.4-5.0); BLOOD UREA NITROGEN 27.2 mg/dL (7-18); MAGNESIUM 1.9 mg/dL (1.8-2.4)
[2024-05-17] MEDS ORDERED: CIPROFLOXACIN 200 MG/D5W 100 ML IVPB ONE (05:57)
[2024-05-17 05:59] LABS: CREATININE 0.9 mg/dL (0.55-1.3)
[2024-05-17 06:00] LABS: BILIRUBIN,TOTAL 0.7 mg/dL (0.2-1); TOT PROT 6.1 g/dl (6.4-8.2)
[2024-05-17 06:07] LABS: BASO % 0.2 % (0-2.0); EOS % 0.8 % (0-4.5); HEMATOCRIT 41.1 % (32.4-45.2); HEMOGLOBIN 13.8 GM/dL (10.7-15.3); LYMPH % 16.4 % (8-40); MCH 32.7 pg (25.7-33.7); MCHC 33.4 g/dl (32.0-36.0); MEAN PLT VOLUME 9.5 fl (7.5-11.1); MONO % 6.9 % (3.8-10.2); NEUT % 75.7 % (42.8-82.8); PLATELET COUNT 100 10^3/uL (134-434); RDW 14.7 % (11.6-15.6); WHITE BLOOD COUNT 6.1 K/mm3 (4.0-10.0)
[2024-05-17] MEDS ORDERED: VANCOMYCIN 1 GRAM (PRE-DOCKED) 1,000 MG/250 ML BAG IVPB ONE (06:45)
[2024-05-17] MEDS: VANCOMYCIN 1,000 MG in DEXTROSE 5%-WATER - 250 ML IVPB ONE (07:22)
[2024-05-17] MEDS ORDERED: DOCUSATE SODIUM 100 MG CAPSULE (FP) PO PRN (10:08)
[2024-05-17] MEDS ORDERED: ACETAMINOPHEN 325 MG TABLET (FP) PO PRN (10:08)
[2024-05-17] MEDS ORDERED: ALBUTEROL SO4 2.5/IPRATROPIUM 0.5 INH SOL 3 ML VIAL.NEB. NEB ONE ×2 (13:23→16:10)
[2024-05-17] MEDS: ALBUTEROL SO4 2.5/IPRATROPIUM 0.5 INH SOL 3 ML VIAL.NEB. NEB SCH (13:58)
[2024-05-17] MEDS ORDERED: ACETAMINOPHEN 1000 MG/100 ML BAG IVPB PRN (14:42)
[2024-05-17] MEDS: DEXTROSE 5%-0.45% SALINE 1,000 ML IV SCH (15:12)
[2024-05-17 17:46] VITALS: BMI 21.7
[2024-05-17] MEDS: SENNOSIDES 8.6MG TABLET (FP) PO SCH (21:48)
[2024-05-17] MEDS: ATORVASTATIN CA 20 MG TABLET (FP) PO SCH (21:48)
[2024-05-17] MEDS: BUDESONIDE/FORMETEROL FUMARATE 160/4.5 mcg INHALER IH SCH (22:33)
[2024-05-17] MEDS: lamiVUDine 150 MG TABLET PO SCH (22:33)
[2024-05-18 07:54] LABS: POTASSIUM 4.3 mmol/L (3.5-5.1)
[2024-05-18 07:56] LABS: ALBUMIN 2.2 g/dl (3.4-5.0); BLOOD UREA NITROGEN 24.8 mg/dL (7-18); CALCIUM 8.8 mg/dL (8.5-10.1); MAGNESIUM 2.1 mg/dL (1.8-2.4)
[2024-05-18 08:00] LABS: CREATININE 0.9 mg/dL (0.55-1.3); PHOSPHOROUS 3.2 mg/dL (2.5-4.9)
[2024-05-18 08:01] LABS: BILIRUBIN,TOTAL 0.7 mg/dL (0.2-1); TOT PROT 5.9 g/dl (6.4-8.2)
[2024-05-18 10:13] LABS: BASO % 0.3 % (0-2.0); EOS % 1.8 % (0-4.5); HEMATOCRIT 39.6 % (32.4-45.2); HEMOGLOBIN 13.2 GM/dL (10.7-15.3); LYMPH % 15.5 % (8-40); MCH 32.4 pg (25.7-33.7); MCHC 33.4 g/dl (32.0-36.0); MEAN CELL VOLUME 97.1 fl (80-96); MEAN PLT VOLUME 8.5 fl (7.5-11.1); MONO % 5.6 % (3.8-10.2); NEUT % 76.8 % (42.8-82.8); PLATELET COUNT 88 10^3/uL (134-434); RBC 4.08 M/mm3 (3.60-5.2); RDW 15.2 % (11.6-15.6); WHITE BLOOD COUNT 4.2 K/mm3 (4.0-10.0)
[2024-05-18] MEDS: PANTOPRAZOLE 40 MG TABLET PO SCH (10:30)
[2024-05-18] MEDS: CHOLECALCIFEROL (VIT D3) 1,000 UNIT (25 MCG) TABLET PO SCH (10:30)
[2024-05-18] MEDS: ENOXAPARIN NA (PORCINE) 40 MG/0.4 ML DISP.SYRIN SQ SCH (10:30)
[2024-05-18] MEDS: MULTIVITAMINS (DAILY MVI) TABLET (FP) PO SCH (10:30)
[2024-05-18] MEDS: DARUNAVIR/COB/EMTRI/TENOF ALAF 1 EACH TABLET PO SCH (11:01)
[2024-05-20] MEDS: MULTIVITAMINS (DAILY MVI) TABLET (FP) PO SCH (10:37)
[2024-05-21 08:59] VITALS: BP 128/78; PULSE 65; RESP 16; TEMP 97.5
== END 2024-05-21 12:29 ==
LOC: JER 01:53 → JERBED 09:14 → INTOOBSV 09:14 → UNDOADMOB 09:14 → JERBED 15:32 → J7W 16:52
PROVIDERS: ADMIT Internal Medicine; ATTEND Internal Medicine
PROC: 3E0F7GC Introduction of Other Therapeutic Substance into Respiratory Tract, Via Natural or Artificial Opening (ICD-10-PCS; principal; 2024-05-17)
PROC: 3E033GC Introduction of Other Therapeutic Substance into Peripheral Vein, Percutaneous Approach (ICD-10-PCS; 2024-05-17)
PROC: 3E023GC Introduction of Other Therapeutic Substance into Muscle, Percutaneous Approach (ICD-10-PCS; 2024-05-17)
PROC: 3E03329 Introduction of Other Anti-infective into Peripheral Vein, Percutaneous Approach (ICD-10-PCS; 2024-05-17)
DX: R41.82 Altered mental status, unspecified (principal); J44.9 Chronic obstructive pulmonary disease, unspecified; F41.9 Anxiety disorder, unspecified; B20 Human immunodeficiency virus [HIV] disease; G89.29 Other chronic pain; M54.9 Dorsalgia, unspecified; M25.559 Pain in unspecified hip; Z88.0 Allergy status to penicillin; Z91.013 Allergy to seafood
CPT/HCPCS: 0241U-QW; 36415; 70450-TC; 70553-TC; 71045-TC-FY; 71250-TC; 74177-TC; 76705-TC; 80053; 81003; 82962; 83605; 83735; 84100; 84484; 85025; 87086; 87635; 93005; 93010; 94640; 96361; 96365; 96367; 96372; 96375; 99285-25; G0378

== ENCOUNTER 2024-12-10 06:12 | Inpatient (IN) | payer OTHER ==
[2024-12-10] MEDS ORDERED: MAGNESIUM SULFATE IN WATER 2 GM/50 ML IVPB IVPB ONE (06:35)
[2024-12-10] MEDS: ALBUTEROL SO4 2.5/IPRATROPIUM 0.5 INH SOL 3 ML VIAL.NEB. NEB SCH ×2 (06:45→11:36)
[2024-12-10] MEDS: MAGNESIUM SULFATE IN WATER 2 GM/50 ML IVPB IVPB ONE (06:45)
[2024-12-10 07:35] LABS: ABSOLUTE IMMATURE GRANULOCYTES 0.02 x10^3/uL (0.0-0.031); BASOPHILS # 0.02 x10^3/uL (0.01-0.08); EOSINOPHIL % 5.8 % (0.7-5.8); EOSINOPHILS # 0.44 x10^3/uL (0.04-0.36); HEMATOCRIT 29.3 % (34.1-44.9); HEMOGLOBIN 9.4 g/dL (11.2-15.7); MCHC 32.1 g/dl (32.2-35.5); MEAN CELL VOLUME 103.9 fl (79.4-94.8); MEAN PLT VOLUME 9.8 fl (9.4-12.3); MONOCYTE # 0.49 x10^3/uL (0.24-0.86); MONOCYTE % 6.4 % (4.7-12.5); PLATELET COUNT 236 x10^3/uL (182-369); RDW 14.2 % (12.4-16.4)
[2024-12-10 07:37] LABS: POTASSIUM 4.6 mmol/L (3.5-5.1)
[2024-12-10 07:39] LABS: CALCIUM 9.2 mg/dL (8.5-10.1)
[2024-12-10 07:40] LABS: ALBUMIN 2.2 g/dl (3.4-5.0); BLOOD UREA NITROGEN 38.1 mg/dL (7-18); MAGNESIUM 2.3 mg/dL (1.8-2.4)
[2024-12-10 07:43] LABS: CREATININE 0.9 mg/dL (0.55-1.3)
[2024-12-10 07:44] LABS: BILIRUBIN,TOTAL 0.3 mg/dL (0.2-1); TOT PROT 7.2 g/dl (6.4-8.2)
[2024-12-10 07:47] LABS: VENOUS BASE EXCESS -0.3 mmol/L (-2-2); VENOUS O2 SATURATION 91.8 % (70-80); VENOUS PCO2 32.2 mmHg (38-52); VENOUS PH 7.471 (7.310-7.410)
[2024-12-10] MEDS: LACTATED RINGERS SOLUTION 1000 ML INFUS.BAG IV ONE (08:21)
[2024-12-10] MEDS ORDERED: CEFEPIME HCL/D5W 2 GM/50 ML BAG IVPB ONE (09:05)
[2024-12-10] MEDS: CEFEPIME HCL 2 GM VIAL (RESTRICTED TO ID) IVPB ONE (09:15)
[2024-12-10] MEDS ORDERED: AZITHROMYCIN IVPB 500 MG/250 ML BAG IVPB ONE (09:23)
[2024-12-10] MEDS: AZITHROMYCIN IVPB 500 MG in DEXTROSE 5%-WATER - 250 ML IVPB ONE (09:30)
[2024-12-10] MEDS ORDERED: VANCOMYCIN 1,000 MG in DEXTROSE 5%-WATER - 250 ML IVPB SCH (09:45)
[2024-12-10] MEDS ORDERED: PATIENT'S OWN MEDICATION (NON-FORMULARY) (Meropenem 1 GM Vial) IVPB SCH (10:00)
[2024-12-10] MEDS ORDERED: ALBUTEROL SO4 0.083% IH SOL 2.5 MG/3 ML VIAL.NEB. NEB ONE (10:27)
[2024-12-10] MEDS ORDERED: ALBUTEROL SO4 2.5/IPRATROPIUM 0.5 INH SOL 3 ML VIAL.NEB. NEB ONE (10:27)
[2024-12-10] MEDS ORDERED: VANCOMYCIN 1 GM PREMIX (F) 1 GM/200 ML BAG ONE (10:55)
[2024-12-10] MEDS ORDERED: ACETAMINOPHEN INJECTION 100 ML ONE (10:55)
[2024-12-10 10:57] LABS: URINE APPEARANCE Clear; URINE BILIRUBIN Negative (NEGATIVE); URINE COLOR Yellow; URINE GLUCOSE (UA) Negative (NEGATIVE); URINE KETONE Negative (NEGATIVE); URINE LEUK ESTERASE 1+ (NEGATIVE); URINE NITRITE Negative (NEGATIVE); URINE PROTEIN 2+ (NEGATIVE); URINE UROBILINOGEN 0.2 mg/dL (0.2-1.0)
[2024-12-10 11:05] LABS: EPI CELLS 34.7 /uL (0-25.1); HYALINE CASTS 0.25 /uL (0-3.1); URINE BACTERIA 7.6 /uL (0-1359); URINE RBC 11.8 /uL (0-23.9)
[2024-12-10] MEDS: ACETAMINOPHEN 1000 MG/100 ML BAG IVPB ONE (11:05)
[2024-12-10] MEDS ORDERED: HEPARIN NA (PORCINE) 5,000 UNITS/ML 1ML VIAL ONE (11:07)
[2024-12-10] MEDS: HEPARIN NA (PORCINE) 5,000 UNITS/ML 1ML VIAL SQ SCH (11:09)
[2024-12-10] MEDS ORDERED: MEROPENEM 1 GM VIAL (RESTRICTED TO ID) IVPB ONE (11:12)
[2024-12-10] MEDS ORDERED: ABACAVIR SULFATE 20 MG/1 ML LIQUID BULK BOTTLE PO SCH (11:15)
[2024-12-10] MEDS ORDERED: ABACAVIR SULFATE 300 MG TABLET PO SCH (11:15)
[2024-12-10] MEDS: MEROPENEM 1 GM in DEXTROSE 5%-WATER 100 ML IVPB SCH ×4 (11:24→21:58)
[2024-12-10] MEDS: VANCOMYCIN 1 GM PREMIX (F) 1 GM/200 ML BAG IVPB SCH (12:13)
[2024-12-10] MEDS: SULFAMETHOXAZOLE/TRIMETHOPRIM 800MG/160MG D.S. TABLET PO SCH (14:34)
[2024-12-10] MEDS: lamiVUDine 10 MG/1 ML BULK BOTTLE GT SCH (14:35)
[2024-12-10] MEDS: ABACAVIR SULFATE 300 MG TABLET NR SCH (14:35)
[2024-12-10] MEDS: DARUNAVIR 800 MG/COBICISTAT 150MG TABLET GT SCH (14:35)
[2024-12-10] MEDS: METOPROLOL TARTRATE 25 MG TABLET (FP) GT SCH (14:35)
[2024-12-10] MEDS: VANCOMYCIN 1,000 MG in DEXTROSE 5%-WATER - 250 ML IVPB ONE (14:59)
[2024-12-10] MEDS: ALBUTEROL SO4 0.083% IH SOL 2.5 MG/3 ML VIAL.NEB. NEB SCH (15:00)
[2024-12-10] MEDS: LACTATED RINGERS SOLUTION 1,000 ML/1,000 ML INFUS.BAG IV SCH (15:14)
[2024-12-10] MEDS: VANCOMYCIN 1,000 MG in DEXTROSE 5%-WATER - 250 ML IVPB SCH (21:59)
[2024-12-11 09:21] LABS: ABSOLUTE IMMATURE GRANULOCYTES 0.03 x10^3/uL (0.0-0.031); HEMATOCRIT 24.9 % (34.1-44.9); HEMOGLOBIN 8.1 g/dL (11.2-15.7); MCHC 32.5 g/dl (32.2-35.5); MEAN CELL VOLUME 104.2 fl (79.4-94.8); MONOCYTE # 0.28 x10^3/uL (0.24-0.86); MONOCYTE % 4.2 % (4.7-12.5); PLATELET COUNT 189 x10^3/uL (182-369); RDW 14.2 % (12.4-16.4)
[2024-12-11 09:44] LABS: POTASSIUM 4.1 mmol/L (3.5-5.1)
[2024-12-11 09:56] LABS: BLOOD UREA NITROGEN 32.7 mg/dL (7-18)
[2024-12-11 09:57] LABS: CALCIUM 9.3 mg/dL (8.5-10.1)
[2024-12-11 10:00] LABS: CREATININE 0.8 mg/dL (0.55-1.3)
[2024-12-11] MEDS: SILVER SULFADIAZINE 1% TOP CREAM 400 GM JAR TP PRN (11:29)
[2024-12-12] MEDS ORDERED: MEROPENEM 1 GM VIAL (RESTRICTED TO ID) IVPB ONE (10:48)
[2024-12-12] MEDS: MEROPENEM 1 GM in DEXTROSE 5%-WATER 100 ML IVPB SCH (10:58)
[2024-12-12 11:19] LABS: HEMATOCRIT 26.4 % (34.1-44.9); HEMOGLOBIN 8.3 g/dL (11.2-15.7); MCHC 31.4 g/dl (32.2-35.5); MEAN CELL VOLUME 103.9 fl (79.4-94.8); MEAN PLT VOLUME 9.7 fl (9.4-12.3); PLATELET COUNT 245 x10^3/uL (182-369); RDW 14.4 % (12.4-16.4)
[2024-12-12] MEDS: VANCOMYCIN 1 GM PREMIX (F) 1 GM/200 ML BAG IVPB SCH (11:37)
[2024-12-12 11:40] LABS: POTASSIUM 4.3 mmol/L (3.5-5.1)
[2024-12-12 11:47] LABS: CALCIUM 9.8 mg/dL (8.5-10.1)
[2024-12-12 11:48] LABS: MAGNESIUM 2.1 mg/dL (1.8-2.4)
[2024-12-12 11:50] LABS: CREATININE 0.8 mg/dL (0.55-1.3)
[2024-12-12 11:51] LABS: PHOSPHOROUS 1.9 mg/dL (2.5-4.9)
[2024-12-12 13:17] VITALS: BMI 20.5
[2024-12-12] MEDS: NAPH,MB-DB/K PH,MBDB POWDER PACKET GT SCH (14:26)
[2024-12-12] MEDS: ASCORBIC ACID 500 MG/5 ML UNIT DOSE CUP GT SCH (14:26)
[2024-12-12] MEDS: MULTIVIT-MINERALS ORAL LIQUID GT SCH (14:27)
[2024-12-12] MEDS: AMINO ACIDS/PROTEIN HYDROLYS 30 ML LIQUID.PKT GT SCH (16:06)
[2024-12-12] MEDS: COLLAGENASE CLOSTRIDIUM HIST. 30 GRAMS TUBE TP SCH (18:16)
[2024-12-12] MEDS: ALBUTEROL SO4 2.5/IPRATROPIUM 0.5 INH SOL 3 ML VIAL.NEB. NEB SCH (20:05)
[2024-12-13 15:53] VITALS: PULSE 94
[2024-12-13 16:13] VITALS: BP 146/70; RESP 16; TEMP 98.8
== END 2024-12-13 19:17 | DRG 890 ==
LOC: JER 06:12 → JERBED 08:33 → J5S 14:29
PROVIDERS: ADMIT Internal Medicine
PROC: 5A1945Z Respiratory Ventilation, 24-96 Consecutive Hours (ICD-10-PCS; principal; 2024-12-10)
DX: J15.212 Pneumonia due to Methicillin resistant Staphylococcus aureus (principal); J44.9 Chronic obstructive pulmonary disease, unspecified; E78.5 Hyperlipidemia, unspecified; I10 Essential (primary) hypertension; I69.391 Dysphagia following cerebral infarction; R13.10 Dysphagia, unspecified; F32.9 Major depressive disorder, single episode, unspecified; F41.9 Anxiety disorder, unspecified; B20 Human immunodeficiency virus [HIV] disease; F03.90 Unspecified dementia, unspecified severity, without behavioral disturbance, psychotic disturbance, mood disturbance, and anxiety; J96.21 Acute and chronic respiratory failure with hypoxia; E44.0 Moderate protein-calorie malnutrition; Z93.0 Tracheostomy status; Z93.1 Gastrostomy status; Z68.20 Body mass index [BMI] 20.0-20.9, adult; L89.312 Pressure ulcer of right buttock, stage 2; L89.152 Pressure ulcer of sacral region, stage 2; L89.210 Pressure ulcer of right hip, unstageable
CPT/HCPCS: 0241U-QW; 36415; 71045-TC-FY; 74240-TC-FY; 80048; 80053; 81003; 82803; 82962; 83735; 84100; 84484; 85025; 85027; 87086; 93005; 93010; 94002; 94640; 99285-25